=== PATIENT | female | born 1945 | race Caucasian/White ===

== ENCOUNTER 2018-12-08 20:39 | Emergency (ER) | payer MEDICARE, OTHER, SELFPAY ==
[2018-12-08 20:40] VITALS: BP 115/74; PULSE 69; RESP 17; TEMP 35.7; O2SAT 96; BMI 21.5
--- NOTE | 2018-12-08 21:55 | ED.RN ---
IM GOING HOME, I WILL SEE MY TOMORROW.
== END 2018-12-08 21:55 ==
LOC: ED 22:07
PROVIDERS: Emergency Provider Emergency Medicine; Family Provider Student in an Organized Health Care Education/Training Program; PCP Student in an Organized Health Care Education/Training Program
DX: Z91.81 History of falling (principal)

== ENCOUNTER → 2022-05-01 | Outpatient (CLI) | payer MEDICARE, OTHER, SELFPAY ==
[2022-05-01 13:46] VITALS: PULSE 101; PULSE 102; PULSE 67; PULSE 70; PULSE 91; PULSE 95; O2SAT 89; O2SAT 90; O2SAT 92; O2SAT 93; O2SAT 94
--- NOTE | 2022-05-01 13:48 | CPS ---
Patient does not wear any oxygen at home. She does have a pulse oximeter at home and states that she checks her oxygen 3 times a day while she is sitting. Patient walked a steady pace the entire 6 minutes of testing. Discussed with patient the importance of SpO2 being 89-90% or greater, and to monitor SpO2 during or directly after ambulation and activity instead of while resting. Patient verbalized understanding and was attentive during discussion.
--- NOTE | 2022-05-01 14:54 | PCM.PSN.6M ---
PSN 6 Minute Walk Test 6 Minute Walk Test 6 Minute Walk Test: 6 Minute Walk Test PSN:6-Minute Walk Test Start: 05/01/22 13:46 Freq: Status: Active Protocol: RESP.6MINW Document 05/01/22 13:46 LENNIERAMU (Rec: 05/01/22 13:53 RANDY [id number]) 6 Minute Walk Test Date Performed 05/01/22 Time Performed 13:30 Height 5 ft 3 in Weight: 50.802 kg Weight in Pounds 112.[address]: Jean Sullivan Assistive device used: None Pre-test Oxygen Delivery Method Room Air Pulse Ox (%) 94 Pulse Rate (60-100 beats/min) 67 Dyspnea Hue Scale (0-10) 0 Exertion Hue Scale (6-20) 6 1st minute Oxygen Delivery Method Room Air Pulse Ox (%) 94 Pulse Rate (60-100 beats/min) 91 2nd minute Oxygen Delivery Method Room Air Pulse Ox (%) 93 Pulse Rate (60-100 beats/min) 95 3rd minute Oxygen Delivery Method Room Air Pulse Ox (%) 92 Pulse Rate (60-100 beats/min) 101 H 4th minute Oxygen Delivery Method Room Air Pulse Ox (%) 90 Pulse Rate (60-100 beats/min) 101 H 5th minute Oxygen Delivery Method Room Air Pulse Ox (%) 89 Pulse Rate (60-100 beats/min) 102 H 6th minute Oxygen Delivery Method Room Air Pulse Ox (%) 89 Pulse Rate (60-100 beats/min) 102 H Dyspnea Hue Scale (0-10) 1 Exertion Hue Scale (6-20) 12 Post-test Oxygen Delivery Method Room Air Pulse Ox (%) 94 Pulse Rate (60-100 beats/min) 70 Full Laps Walked 18 Partial Lap, Number of Tiles Walked 50 Total Distance Walked (ft) 1112 05/01/22 13:48 Cardiopulmonary Services by Mallory Soto Patient does not wear any oxygen at home. She does have a pulse oximeter at home and states that she checks her oxygen 3 times a day while she is sitting. Patient walked a steady pace the entire 6 minutes of testing. Discussed with patient the importance of SpO2 being 89-90% or greater, and to monitor SpO2 during or directly after ambulation and activity instead of while resting. Patient verbalized understanding and was attentive during discussion. Initialized on 05/01/22 13:48 - END OF NOTE Interpretation Interpretation: The patient was able to ambulate 1112 feet over the course of 6 minutes on room air with no assistive devices or breaks. The patient did experience significant desaturation from a baseline of 94% to as low as 89%. There was an element of reflexive tachycardia with a peak heart rate of 102 bpm. These findings are consistent with a respiratory limitation exercise tolerance. Recommendations Recommendations: No supplemental oxygen is indicated at this time. However, patient will need to be followed closely given level of desaturation.
== END | disposition home or self-care (01) ==
LOC: PSN 13:24
PROVIDERS: PCP Family Medicine; Referring Provider Internal Medicine Critical Care Medicine; Visit Provider Internal Medicine Critical Care Medicine
DX: J44.9 Chronic obstructive pulmonary disease, unspecified (principal)
CPT/HCPCS: 94618

== ENCOUNTER 2023-02-24 13:20 | Inpatient (IN) | payer MEDICARE, OTHER, SELFPAY ==
[2023-02-24] VITALS (9 sets, daily range): BP systolic 107–140; BP diastolic 53–104; PULSE 80–104; RESP 16–20; TEMP 36.6–38.2; O2SAT 94–97; BMI 29.0; BMI 21.3
--- NOTE | 2023-02-24 13:45 | EKG12_ITS ---
Test Reason : SOB Blood Pressure : / mmHG Vent. Rate : 093 BPM Atrial Rate : 093 BPM P-R Int : 132 ms QRS Dur : 082 ms QT Int : 336 ms P-R-T Axes : 069 055 027 degrees QTc Int : 417 ms Normal sinus rhythm Nonspecific ST and T wave abnormality Abnormal ECG Confirmed by PAYTON VAZQUEZ, KAITLIN ([id number]), graphics editor HAKEEM HORTON ([id number]) on 02/28/2023 11:32:41 AM Referred By: Confirmed By:KAITLIN CAIN MD
--- NOTE | 2023-02-24 13:45 | RAD_ITS ---
HISTORY: chest wall pain. TECHNIQUE: XR Chest 2 Views. COMPARISON: None. FINDINGS: CARDIOMEDIASTINAL BORDERS: Cardiac silhouette within normal limits in size. Mediastinal contour unremarkable calcification of the aortic knob. LUNGS: Patchy opacity in the left midlung. PLEURA: Mild left pleural effusion. OSSEOUS STRUCTURES: Surgical anchor of the left humeral head. RAD/Chest PA and Lateral IMPRESSION: Mild left pleural effusion with patchy opacity in the left midlung, concerning for pneumonia. Recommend follow-up to resolution. Electronically Signed: Amarilys Pierce MD at 14:37 EDT ,
--- NOTE | 2023-02-24 13:46 | CT_ITS ---
HISTORY: confusion. TECHNIQUE: Multiple axial images were obtained of the head without intravenous contrast. A radiation dose optimization technique was used for this scan. 235 images. COMPARISON: None. FINDINGS: BRAIN PARENCHYMA: Multiple foci and zones of low attenuation in the bilateral cerebral white matter compatible with chronic small vessel ischemic gliosis. No acute intra-axial hemorrhage identified. CSF SPACES: Generalized volume loss. No midline shift or other significant mass effect. No acute extra-axial hemorrhage seen. OTHER: Intact calvarium. No significant air fluid levels in the paranasal sinuses or mastoid air cells. Bilateral lens resections. CT/Brain/Head without Contrast IMPRESSION: No acute intracranial process identified. Chronic involutional and white matter changes. Electronically Signed: Amarilys Pierce MD at 14:30 EDT ,
--- NOTE | 2023-02-24 13:49 | EX.ED.DYSGE1 ---
HPI <DAVID Colindres - Last Filed: 02/24/23 18:01> History of Present Illness Chief Complaint: Chest Other Narrative Narrative: Patient presenting today with her daughter due to concerns that she has a left-sided rib fracture, daughter also reports that she has been acting a little confused on and off since Saturday. Daughter reports that they were at her PCPs office on and the provider was looking at her left arm and had her left arm pressed against her chest and has had pain to her left lower chest wall ever since. Daughter reports that she has been acting off since Saturday, she was using her inhaler upside down which she has never done before and has just been acting more confused. They tested her for COVID and she was negative. She denies any fevers, chills, abdominal pain, nausea, vomiting, diarrhea, urinary symptoms, chest pain, and shortness of breath. She denies any history of blood clots, recent surgery/procedures, recent immobilization. PMH includes COPD, hyperlipidemia, depression, and hypertension. PFSH <DAVID Colindres - Last Filed: 02/24/23 18:01> PFSH Medical History Acute bronchitis Anxiety Asthma-COPD overlap syndrome Chronic cough Depression Diabetes Elevated blood pressure reading Essential hypertension History of left heart catheterization (LHC) (~02/02/04) Hypertension Intermittent cerebral ischemia Long-term memory loss Menopause Mixed hyperlipidemia Nonrheumatic aortic (valve) insufficiency Osteopenia Right wrist fracture Stage 2 moderate COPD by GOLD classification TIA (transient ischemic attack) Tobacco use Type 2 diabetes mellitus Wheezing Home Medications albuterol sulfate 90 mcg/actuation aerosol inhaler 2 puff inhalation Q6H PRN SOB 02/01/22 [History Last Taken Unknown] atorvastatin 20 mg tablet 20 mg PO DAILY 02/01/22 [History Last Taken Unknown] clopidogrel 75 mg tablet (Plavix) 75 mg PO DAILY 02/01/22 [History Last Taken Unknown] losartan 25 mg tablet 25 mg PO DAILY 02/01/22 [History Last Taken Unknown] metformin 500 mg tablet 500 mg PO DAILY 02/01/22 [History Last Taken Unknown] sertraline 100 mg tablet 100 mg PO DAILY 02/01/22 [History Last Taken Unknown] Allergy/AdvReac Type Severity Reaction Status Date / Time umeclidinium Allergy Unknown unknown Verified 02/24/23 13:26 [From Incruse Ellipta] oxycodone HCl [From Percocet] AdvReac Rash Verified 02/24/23 13:26 Family History Father CAD (coronary artery disease) History of coronary artery bypass surgery Diabetes Mother Diabetes Surgical History History of abdominal hysterectomy History of appendectomy History of History of rotator cuff surgery Social History Smoking Status: Current every day smoker tobacco type: cigarettes Tobacco: How many years used: 47 alcohol intake: never details: Rare substance use type: does not use caffeine: Yes Type: coffee Number of servings: 6 ROS <DAVID Colindres - Last Filed: 02/24/23 18:01> ROS ED Constitutional Constitutional ED: Denies chills or fever(s) Eyes Eyes: Denies change in vision Cardiovascular Cardiovascular: Denies chest pain or palpitations Respiratory/Chest Respiratory/Chest: Denies cough, dyspnea or dyspnea on exertion Gastrointestinal Gastrointestinal: Denies abdominal pain, constipation, diarrhea, melena, nausea or vomiting Genitourinary Genitourinary ED: Denies dysuria, hematuria or urinary urgency Musculoskeletal Musculoskeletal: Denies arthralgias or myalgias Integumentary Denies Abrasions or rash Neurologic Neurologic: Reports confusion; Denies paresthesias or weakness EXAM <DAVID Colindres - Last Filed: 02/24/23 18:01> Physical Exam Const Vital Signs: 02/24/23 13:21 02/24/23 14:04 02/24/23 14:09 Temperature 98 F 99.9 F H Temperature Source Temporal Oral Pulse Rate 104 H 92 Respiratory Rate 18 16 Respiratory Effort Respiratory Pattern Normal Blood Pressure 135/73 H Blood Pressure Mean 93 Pulse Ox 95 Oxygen Delivery Method Room Air Oxygen Flow Rate (L/min) 02/24/23 15:45 02/24/23 15:48 02/24/23 16:52 Temperature Temperature Source Pulse Rate 98 89 Respiratory Rate 20 H 20 H Respiratory Effort Short of Breath Respiratory Pattern Normal Blood Pressure 136/64 H 138/104 H Blood Pressure Mean 88 115 Pulse Ox 94 96 Oxygen Delivery Method Nasal Cannula Nasal Cannula Oxygen Flow Rate (L/min) 2 2 Positive well nourished, well developed and no apparent distress General Appearance ED: well developed HEENT Reports normocephalic and head/scalp atraumatic Mouth ED: Yes moist mucous membranes normal Eyes PERRL and EOMs intact bilaterally Neck full ROM and supple Chest Wall inspection of chest normal Chest Narrative: Minimal tenderness to palpation to the left anterior chest wall below the breast, no crepitus or bruising Resp normal respiratory effort Resp Narrative: Expiratory wheezes to all lung ambrocio bilaterally. Cardio regular rate and regular rhythm GI soft to palpation, non-tender, non-distended and no masses Back/Spine normal ROM and normal to inspection Extremity normal to inspection and full ROM Neuro oriented x3, CN's II-XII intact bilaterally, moves all extremities, no focal motor deficits and no sensory deficits noted Sensorium / Orientation: awake and alert Psych mental status grossly normal and thought process normal Skin no rashes or lesions noted and no wounds <Dr. Nuzhat Tee, DO - Last Filed: 02/24/23 15:44> Physical Exam Const Vital Signs: 02/24/23 13:21 02/24/23 14:04 02/24/23 14:09 Temperature 98 F 99.9 F H Temperature Source Temporal Oral Pulse Rate 104 H 92 Respiratory Rate 18 16 Respiratory Effort Respiratory Pattern Normal Blood Pressure 135/73 H Blood Pressure Mean 93 Pulse Ox 95 Oxygen Delivery Method Room Air Oxygen Flow Rate (L/min) 02/24/23 15:45 02/24/23 15:48 02/24/23 16:52 Temperature Temperature Source Pulse Rate 98 89 Respiratory Rate 20 H 20 H Respiratory Effort Short of Breath Respiratory Pattern Normal Blood Pressure 136/64 H 138/104 H Blood Pressure Mean 88 115 Pulse Ox 94 96 Oxygen Delivery Method Nasal Cannula Nasal Cannula Oxygen Flow Rate (L/min) 2 2 <Dr. Mario Froeman, DO - Last Filed: 02/24/23 17:39> Physical Exam Const Vital Signs: 02/24/23 13:21 02/24/23 14:04 02/24/23 14:09 Temperature 98 F 99.9 F H Temperature Source Temporal Oral Pulse Rate 104 H 92 Respiratory Rate 18 16 Respiratory Effort Respiratory Pattern Normal Blood Pressure 135/73 H Blood Pressure Mean 93 Pulse Ox 95 Oxygen Delivery Method Room Air Oxygen Flow Rate (L/min) 02/24/23 15:45 02/24/23 15:48 02/24/23 16:52 Temperature Temperature Source Pulse Rate 98 89 Respiratory Rate 20 H 20 H Respiratory Effort Short of Breath Respiratory Pattern Normal Blood Pressure 136/64 H 138/104 H Blood Pressure Mean 88 115 Pulse Ox 94 96 Oxygen Delivery Method Nasal Cannula Nasal Cannula Oxygen Flow Rate (L/min) 2 2 [facility] <DAVID Colindres - Last Filed: 02/24/23 18:01> [facility] Narrative Medical decision making narrative: Patient presenting today due to concerns for pain to her left lower chest wall thinking that she could have maybe broke her rib after seeing a provider on Saturday who was trying to remove a palpable from her left arm and was pushing her arm against her chest and it has been painful ever since. Pain is not consistent with cardiac chest pain, pain is reproducible. Daughter is concerned that she has been acting more confused over the past few days. Patient is well-appearing and in no acute distress. Labs will be obtained to rule out leukocytosis, anemia, electrolyte abnormality, CATALINA, UTI, and ACS. CT of the head will be obtained to rule out intracranial abnormality, chest x-ray will be obtained to rule out infiltrate and rib fracture. She will be given a albuterol breathing treatment due to having some expiratory wheezing on auscultation. Patient did develop a fever, she was given Tylenol. She does have an elevated WBC, D-dimer is elevated, she is hyponatremic, chest x-ray shows pneumonia. CTA obtained and patient does not have a PE. She was given IV fluids, she was started on azithromycin and Rocephin, she was ambulated and dropped to 86% on room air. At this point, I will speak with the hospitalist for admission. I have personally performed a face to face assessment of the patient and have reviewed the MARIELLA Note. I performed a substantive portion of the visit including all aspects of the following. My bone findings include: History is [patient presents to the emergency department with complaint of left chest pain and increased confusion. Daughter feels like patient's been more confused and disoriented over the last several days and example she gives as not being able to use her inhaler properly. Patient also seems more off balance today per daughter and had a couple episodes where she thought she might fall. She was seen by primary care physician's office 3 days ago and the primary care physician was attempting to remove a pebble from her left forearm while at same time pushing down on her chest and since that time she has been complaining of pain in her left chest. Patient denies any recent illness. She denies urinary symptoms. She denies any falls or head injuries.] Exam is [HEENT-PERRLA, EOMI. Cranial nerves II through XII grossly intact. TMs clear. Mucous membranes moist. No adenopathy. Cardiovascular-regular rate and rhythm without murmur or ectopy Lungs-clear to auscultation, chest wall stable without crepitus or subcu emphysema Abdomen-normoactive bowel sounds, soft, nontender, no rebound or rigidity, no peritoneal signs. Extremities-intact ?4, normal range of motion, normal pulses, atraumatic] Medical Decison Making [patient presents with left-sided chest discomfort as well as some increased confusion and low-grade fever here. On lung exam she has wheezing throughout. Concern for infectious etiology. EKG obtained arrival showed a sinus rhythm with a rate of [address] changes. CBC with differential showed an elevated white count of 15.4 with hemoglobin 12 and platelet count of 228. Chemistries unremarkable. Troponin was normal.] 1 view chest x-ray showed increased markings in the left lower lobe I suspect this consistent with pneumonia. Patient started on Rocephin and Zithromax IV. COVID and flu testing were negative. CT scan of the brain without contrast showed nothing acute. Blood cultures ordered. Lactate pending. Patient had an elevated D-dimer therefore CT of the chest was obtained to rule out PE given the patient's complaint of chest pain and tachycardia. Official report from radiology pending. Care of patient turned over to evening physician awaiting results and final disposition which I suspect likely require admission. Patient did receive DuoNeb aerosol in the emergency department. Patient was started on Solu-Medrol. Other additions or changes: [None] Lab Data Labs: Laboratory Results - last 24 hr 02/24/23 02/24/23 02/24/23 14:09 14:36 15:16 WBC 15.4 H RBC 3.95 L Hgb 12.1 Hct 36.0 L MCV 91.1 MCH 30.6 MCHC 33.6 RDW Std Deviation 42.8 RDW Coeff of [place] 12.9 Plt Count 228 MPV 8.9 Immature Gran % (Auto) 0.600 Neut % (Auto) 84.9 H Lymph % (Auto) 6.9 L [place] % (Auto) 7.2 Eos % (Auto) 0.2 Baso % (Auto) 0.2 Absolute Neuts (auto) 13.1 H Absolute Lymphs (auto) 1.07 Nucleated RBC % 0 D-Dimer Quant (PE/DVT) 2.27 H* Sodium Cancelled 131 L Potassium Cancelled 3.9 Chloride Cancelled 97 L Carbon Dioxide Cancelled 27.0 Anion Gap Cancelled 7 BUN Cancelled 18 Creatinine Cancelled 0.88 Estim Creat Clear Calc Cancelled 44.99 Est GFR (MDRD) Af Amer Cancelled 80 Est GFR (MDRD) Non-Af Cancelled 66 BUN/Creatinine Ratio Cancelled 20.3 H Glucose Cancelled 108 H Lactic Acid 1.9 Calcium Cancelled 8.9 Troponin I High Sens Cancelled 6 Urine Color Urine Clarity Urine pH Ur Specific [place] Urine Protein Urine Glucose (UA) Urine Ketones Urine Occult Blood Urine Nitrite Urine Bilirubin Urine Urobilinogen Ur Leukocyte Esterase Urine RBC Urine WBC Ur Squamous Epith Cells Urine Bacteria Urine Mucus 02/24/23 16:15 WBC RBC Hgb Hct MCV MCH MCHC RDW Std Deviation RDW Coeff of [place] Plt Count MPV Immature Gran % (Auto) Neut % (Auto) Lymph % (Auto) [place] % (Auto) Eos % (Auto) Baso % (Auto) Absolute Neuts (auto) Absolute Lymphs (auto) Nucleated RBC % D-Dimer Quant (PE/DVT) Sodium Potassium Chloride Carbon Dioxide Anion Gap BUN Creatinine Estim Creat Clear Calc Est GFR (MDRD) Af Amer Est GFR (MDRD) Non-Af BUN/Creatinine Ratio Glucose Lactic Acid Calcium Troponin I High Sens Urine Color Yellow Urine Clarity Sl. Cloudy Urine pH 7.0 Ur Specific [place] 1.005 Urine Protein 15 H Urine Glucose (UA) Normal Urine Ketones Negative Urine Occult Blood 50 H Urine Nitrite Negative Urine Bilirubin Negative Urine Urobilinogen Normal Ur Leukocyte Esterase 25 H Urine RBC 0-5 SEEN Urine WBC 0-5 SEEN Ur Squamous Epith Cells 0-5 SEEN Urine Bacteria 0 SEEN Urine Mucus 0 SEEN Radiography X-Ray: Read by ED Physician and Read by Radiologist Diagnostic Testing: Clinical Impression(s) from Imaging Studies Chest X-Ray 02/24/23 13:45 IMPRESSION: Mild left pleural effusion with patchy opacity in the left midlung, concerning for pneumonia. Recommend follow-up to resolution. Electronically Signed: Amarilys Pierce MD at 14:37 EDT , Brain CT 02/24/23 13:46 IMPRESSION: No acute intracranial process identified. Chronic involutional and white matter changes. Electronically Signed: Amarilys Pierce MD at 14:30 EDT , Chest CTA 02/24/23 14:54 IMPRESSION: 1. No demonstrated pulmonary embolism or arterial dissection. 2. There is a lingular and left upper lobe infiltrate suggesting a pneumonia. 3. There is a small left pleural effusions. Electronically Signed: Eulalio Huynh MD at 16:15 EDT , <Dr. Nuzhat Tee, DO - Last Filed: 02/24/23 15:44> [facility] MDM Narrative Medical decision making narrative: Patient presenting today due to concerns for pain to her left lower chest wall thinking that she could have maybe broke her rib after seeing a provider on Saturday who was trying to remove a palpable from her left arm and was pushing her arm against her chest and it has been painful ever since. Pain is not consistent with cardiac chest pain, pain is reproducible. Daughter is concerned that she has been acting more confused over the past few days. Patient is well-appearing and in no acute distress. Labs will be obtained to rule out leukocytosis, anemia, electrolyte abnormality, CATALINA, UTI, and ACS. CT of the head will be obtained to rule out intracranial abnormality, chest x-ray will be obtained to rule out infiltrate and rib fracture. She will be given a albuterol breathing treatment due to having some expiratory wheezing on auscultation. I have personally performed a face to face assessment of the patient and have reviewed the MARIELLA Note. I performed a substantive portion of the visit including all aspects of the following. My bone findings include: History is [patient presents to the emergency department with complaint of left chest pain and increased confusion. Daughter feels like patient's been more confused and disoriented over the last several days and example she gives as not being able to use her inhaler properly. Patient also seems more off balance today per daughter and had a couple episodes where she thought she might fall. She was seen by primary care physician's office 3 days ago and the primary care physician was attempting to remove a pebble from her left forearm while at same time pushing down on her chest and since that time she has been complaining of pain in her left chest. Patient denies any recent illness. She denies urinary symptoms. She denies any falls or head injuries.] Exam is [HEENT-PERRLA, EOMI. Cranial nerves II through XII grossly intact. TMs clear. Mucous membranes moist. No adenopathy. Cardiovascular-regular rate and rhythm without murmur or ectopy Lungs-clear to auscultation, chest wall stable without crepitus or subcu emphysema Abdomen-normoactive bowel sounds, soft, nontender, no rebound or rigidity, no peritoneal signs. Extremities-intact ?4, normal range of motion, normal pulses, atraumatic] Medical Decison Making [patient presents with left-sided chest discomfort as well as some increased confusion and low-grade fever here. On lung exam she has wheezing throughout. Concern for infectious etiology. EKG obtained arrival showed a sinus rhythm with a rate of [address] changes. CBC with differential showed an elevated white count of 15.4 with hemoglobin 12 and platelet count of 228. Chemistries unremarkable. Troponin was normal.] 1 view chest x-ray showed increased markings in the left lower lobe I suspect this consistent with pneumonia. Patient started on Rocephin and Zithromax IV. COVID and flu testing were negative. CT scan of the brain without contrast showed nothing acute. Blood cultures ordered. Lactate pending. Patient had an elevated D-dimer therefore CT of the chest was obtained to rule out PE given the patient's complaint of chest pain and tachycardia. Official report from radiology pending. Care of patient turned over to evening physician awaiting results and final disposition which I suspect likely require admission. Patient did receive DuoNeb aerosol in the emergency department. Patient was started on Solu-Medrol. Other additions or changes: [None] Lab Data Attestation: I reviewed the patient's lab results. Labs: Laboratory Results - last 24 hr 02/24/23 02/24/23 02/24/23 14:09 14:36 15:16 WBC 15.4 H RBC 3.95 L Hgb 12.1 Hct 36.0 L MCV 91.1 MCH 30.6 MCHC 33.6 RDW Std Deviation 42.8 RDW Coeff of [place] 12.9 Plt Count 228 MPV 8.9 Immature Gran % (Auto) 0.600 Neut % (Auto) 84.9 H Lymph % (Auto) 6.9 L [place] % (Auto) 7.2 Eos % (Auto) 0.2 Baso % (Auto) 0.2 Absolute Neuts (auto) 13.1 H Absolute Lymphs (auto) 1.07 Nucleated RBC % 0 D-Dimer Quant (PE/DVT) 2.27 H* Sodium Cancelled 131 L Potassium Cancelled 3.9 Chloride Cancelled 97 L Carbon Dioxide Cancelled 27.0 Anion Gap Cancelled 7 BUN Cancelled 18 Creatinine Cancelled 0.88 Estim Creat Clear Calc Cancelled 44.99 Est GFR (MDRD) Af Amer Cancelled 80 Est GFR (MDRD) Non-Af Cancelled 66 BUN/Creatinine Ratio Cancelled 20.3 H Glucose Cancelled 108 H Lactic Acid 1.9 Calcium Cancelled 8.9 Troponin I High Sens Cancelled 6 Urine Color Urine Clarity Urine pH Ur Specific [place] Urine Protein Urine Glucose (UA) Urine Ketones Urine Occult Blood Urine Nitrite Urine Bilirubin Urine Urobilinogen Ur Leukocyte Esterase Urine RBC Urine WBC Ur Squamous Epith Cells Urine Bacteria Urine Mucus 02/24/23 16:15 WBC RBC Hgb Hct MCV MCH MCHC RDW Std Deviation RDW Coeff of [place] Plt Count MPV Immature Gran % (Auto) Neut % (Auto) Lymph % (Auto) [place] % (Auto) Eos % (Auto) Baso % (Auto) Absolute Neuts (auto) Absolute Lymphs (auto) Nucleated RBC % D-Dimer Quant (PE/DVT) Sodium Potassium Chloride Carbon Dioxide Anion Gap BUN Creatinine Estim Creat Clear Calc Est GFR (MDRD) Af Amer Est GFR (MDRD) Non-Af BUN/Creatinine Ratio Glucose Lactic Acid Calcium Troponin I High Sens Urine Color Yellow Urine Clarity Sl. Cloudy Urine pH 7.0 Ur Specific [place] 1.005 Urine Protein 15 H Urine Glucose (UA) Normal Urine Ketones Negative Urine Occult Blood 50 H Urine Nitrite Negative Urine Bilirubin Negative Urine Urobilinogen Normal Ur Leukocyte Esterase 25 H Urine RBC 0-5 SEEN Urine WBC 0-5 SEEN Ur Squamous Epith Cells 0-5 SEEN Urine Bacteria 0 SEEN Urine Mucus 0 SEEN Radiography Diagnostic Testing: Clinical Impression(s) from Imaging Studies Chest X-Ray 02/24/23 13:45 IMPRESSION: Mild left pleural effusion with patchy opacity in the left midlung, concerning for pneumonia. Recommend follow-up to resolution. Electronically Signed: Amarilys Pierce MD at 14:37 EDT , Brain CT 02/24/23 13:46 IMPRESSION: No acute intracranial process identified. Chronic involutional and white matter changes. Electronically Signed: Amarilys Pierce MD at 14:30 EDT , Chest CTA 02/24/23 14:54 IMPRESSION: 1. No demonstrated pulmonary embolism or arterial dissection. 2. There is a lingular and left upper lobe infiltrate suggesting a pneumonia. 3. There is a small left pleural effusions. Electronically Signed: Eulalio Huynh MD at 16:15 EDT , 1 view chest x-ray obtained interpreted by myself as increased interstitial markings in the left lower lobe consistent with infiltrate. Radiology in agreement. EKG Initial EKG: Attestation: I personally reviewed and interpreted this EKG as follows: Comments: Sinus rhythm with a rate of [address] changes <Dr. Mario Foreman, DO - Last Filed: 02/24/23 17:39> [facility] Narrative Medical decision making narrative: Patient presenting today due to concerns for pain to her left lower chest wall thinking that she could have maybe broke her rib after seeing a provider on Saturday who was trying to remove a palpable from her left arm and was pushing her arm against her chest and it has been painful ever since. Pain is not consistent with cardiac chest pain, pain is reproducible. Daughter is concerned that she has been acting more confused over the past few days. Patient is well-appearing and in no acute distress. Labs will be obtained to rule out leukocytosis, anemia, electrolyte abnormality, CATALINA, UTI, and ACS. CT of the head will be obtained to rule out intracranial abnormality, chest x-ray will be obtained to rule out infiltrate and rib fracture. She will be given a albuterol breathing treatment due to having some expiratory wheezing on auscultation. Patient did develop a fever, she was given Tylenol. She does have an elevated WBC, D-dimer is elevated, she is hyponatremic, chest x-ray shows pneumonia. CTA obtained and patient does not have a PE. She was given IV fluids, she was started on azithromycin and Rocephin, she was ambulated and dropped to 86% on room air. At this point, I will speak with the hospitalist for admission. I have personally performed a face to face assessment of the patient and have reviewed the MARIELLA Note. I performed a substantive portion of the visit including all aspects of the following. My bone findings include: History is [patient presents to the emergency department with complaint of left chest pain and increased confusion. Daughter feels like patient's been more confused and disoriented over the last several days and example she gives as not being able to use her inhaler properly. Patient also seems more off balance today per daughter and had a couple episodes where she thought she might fall. She was seen by primary care physician's office 3 days ago and the primary care physician was attempting to remove a pebble from her left forearm while at same time pushing down on her chest and since that time she has been complaining of pain in her left chest. Patient denies any recent illness. She denies urinary symptoms. She denies any falls or head injuries.] Exam is [HEENT-PERRLA, EOMI. Cranial nerves II through XII grossly intact. TMs clear. Mucous membranes moist. No adenopathy. Cardiovascular-regular rate and rhythm without murmur or ectopy Lungs-clear to auscultation, chest wall stable without crepitus or subcu emphysema Abdomen-normoactive bowel sounds, soft, nontender, no rebound or rigidity, no peritoneal signs. Extremities-intact ?4, normal range of motion, normal pulses, atraumatic] Medical Decison Making [patient presents with left-sided chest discomfort as well as some increased confusion and low-grade fever here. On lung exam she has wheezing throughout. Concern for infectious etiology. EKG obtained arrival showed a sinus rhythm with a rate of [address] changes. CBC with differential showed an elevated white count of 15.4 with hemoglobin 12 and platelet count of 228. Chemistries unremarkable. Troponin was normal.] 1 view chest x-ray showed increased markings in the left lower lobe I suspect this consistent with pneumonia. Patient started on Rocephin and Zithromax IV. COVID and flu testing were negative. CT scan of the brain without contrast showed nothing acute. Blood cultures ordered. Lactate pending. Patient had an elevated D-dimer therefore CT of the chest was obtained to rule out PE given the patient's complaint of chest pain and tachycardia. Official report from radiology pending. Care of patient turned over to evening physician awaiting results and final disposition which I suspect likely require admission. Patient did receive DuoNeb aerosol in the emergency department. Patient was started on Solu-Medrol. Other additions or changes: [None] CTA of the chest was reviewed and discussed with physician construction assistant. Case was reviewed plan was solidified for patient admission and hospitalist was contacted. Antibiotics have been given. Patient has remained hemodynamically stable. Lab Data Labs: Laboratory Results - last 24 hr 02/24/23 02/24/23 02/24/23 14:09 14:36 15:16 WBC 15.4 H RBC 3.95 L Hgb 12.1 Hct 36.0 L MCV 91.1 MCH 30.6 MCHC 33.6 RDW Std Deviation 42.8 RDW Coeff of Ana Maria 12.9 Plt Count 228 MPV 8.9 Immature Gran % (Auto) 0.600 Neut % (Auto) 84.9 H Lymph % (Auto) 6.9 L [place] % (Auto) 7.2 Eos % (Auto) 0.2 Baso % (Auto) 0.2 Absolute Neuts (auto) 13.1 H Absolute Lymphs (auto) 1.07 Nucleated RBC % 0 D-Dimer Quant (PE/DVT) 2.27 H* Sodium Cancelled 131 L Potassium Cancelled 3.9 Chloride Cancelled 97 L Carbon Dioxide Cancelled 27.0 Anion Gap Cancelled 7 BUN Cancelled 18 Creatinine Cancelled 0.88 Estim Creat Clear Calc Cancelled 44.99 Est GFR (MDRD) Af Amer Cancelled 80 Est GFR (MDRD) Non-Af Cancelled 66 BUN/Creatinine Ratio Cancelled 20.3 H Glucose Cancelled 108 H Lactic Acid 1.9 Calcium Cancelled 8.9 Troponin I High Sens Cancelled 6 Urine Color Urine Clarity Urine pH Ur Specific [place] Urine Protein Urine Glucose (UA) Urine Ketones Urine Occult Blood Urine Nitrite Urine Bilirubin Urine Urobilinogen Ur Leukocyte Esterase Urine RBC Urine WBC Ur Squamous Epith Cells Urine Bacteria Urine Mucus 02/24/23 16:15 WBC RBC Hgb Hct MCV MCH MCHC RDW Std Deviation RDW Coeff of Ana Maria Plt Count MPV Immature Gran % (Auto) Neut % (Auto) Lymph % (Auto) [place] % (Auto) Eos % (Auto) Baso % (Auto) Absolute Neuts (auto) Absolute Lymphs (auto) Nucleated RBC % D-Dimer Quant (PE/DVT) Sodium Potassium Chloride Carbon Dioxide Anion Gap BUN Creatinine Estim Creat Clear Calc Est GFR (MDRD) Af Amer Est GFR (MDRD) Non-Af BUN/Creatinine Ratio Glucose Lactic Acid Calcium Troponin I High Sens Urine Color Yellow Urine Clarity Sl. Cloudy Urine pH 7.0 Ur Specific [place] 1.005 Urine Protein 15 H Urine Glucose (UA) Normal Urine Ketones Negative Urine Occult Blood 50 H Urine Nitrite Negative Urine Bilirubin Negative Urine Urobilinogen Normal Ur Leukocyte Esterase 25 H Urine RBC 0-5 SEEN Urine WBC 0-5 SEEN Ur Squamous Epith Cells 0-5 SEEN Urine Bacteria 0 SEEN Urine Mucus 0 SEEN Radiography Diagnostic Testing: Clinical Impression(s) from Imaging Studies Chest X-Ray 02/24/23 13:45 IMPRESSION: Mild left pleural effusion with patchy opacity in the left midlung, concerning for pneumonia. Recommend follow-up to resolution. Electronically Signed: Amarilys Pierce MD at 14:37 EDT , Brain CT 02/24/23 13:46 IMPRESSION: No acute intracranial process identified. Chronic involutional and white matter changes. Electronically Signed: Amarilys Pierce MD at 14:30 EDT , Chest CTA 02/24/23 14:54 IMPRESSION: 1. No demonstrated pulmonary embolism or arterial dissection. 2. There is a lingular and left upper lobe infiltrate suggesting a pneumonia. 3. There is a small left pleural effusions. Electronically Signed: Eulalio Huynh MD at 16:15 EDT , Discharge Plan Dx/Rx/DC Orders Clinical Impression: Confusion, Weakness, Chest pain, Pneumonia, Pleural effusion on left, Acute hyponatremia Disposition Disposition: Acute Care Hospital [facility]
[2023-02-24] MEDS: Albuterol 2.5 MG/3 ML VIAL.NEB. INHALATION (13:54)
[2023-02-24 14:24] LABS: Absolute Lymphocyte Count 1.07 X10^3/uL (0.83-4.51); Absolute Neutrophil Count 13.1 X10^3/uL (2.0-7.7); Basophil# 0.03 X10^3/uL; Basophil% 0.2 % (0-1); Eosinophil# 0.03 X10^3/uL; Eosinophils% 0.2 % (0-5); Hemoglobin 12.1 g/dL (12.0-15.0); Lymphocyte # 1.07 X10^3/ul (0.83-4.51); Lymphocyte % 6.9 % (19-41); Mean Corp Hgb Conc 33.6 g/dL (32-36); Mean Corpuscular Hgb 30.6 pg (27.0-32.0); Mean Corpuscular Volume 91.1 fL (81-99); Mean Platelet Vol. 8.9 fl (6.2-12.0); Monocyte# 1.11 X10^3/uL; Monocyte% 7.2 % (0-10); NRBC Flagged by Analyzer 0 % (0-5); Neutrophil # 13.07 X10^3/uL (2.7-7.7); Neutrophil % 84.9 % (47-70); Platelet Count 228 K/mm3 (150-450); RBC Distribution Width CV 12.9 % (11.6-14.6); RBC Distribution Width SD 42.8 fl (35.1-43.9); Red Blood Count 3.95 M/mm3 (4.2-5.4); White Blood Count 15.4 K/mm3 (4.4-11.0)
[2023-02-24 14:52] LABS: D-Dimer Quantitative (DVT/PE) 2.27 FEU/ug/m (0.27-0.49)
--- NOTE | 2023-02-24 14:54 | CT_ITS ---
EXAM: CT ANGIOGRAPHY CHEST WITHOUT AND WITH INTRAVENOUS CONTRAST CLINICAL INDICATION: Elevated D-dimer TECHNIQUE: Helically acquired angiography images were obtained of the chest without and with intravenous contrast. This CT exam was performed using one or more of the following dose reduction techniques: automated exposure control, adjustment of the mA and/or kV according to patient size, and/or use of iterative reconstruction technique. MIP reconstructed images were created and reviewed. CONTRAST: IV 100mL Isovue-370 RADIATION DOSE: CTDIvol = 5.40 mGy, DLP = 174.53 mGy-cm COMPARISON: No relevant prior studies available. FINDINGS: PULMONARY ARTERIES: Unremarkable. No demonstrated pulmonary embolism or arterial dissection. AORTA: There is atherosclerotic calcification of the aortic arch with tortuosity and elongation of the aortic arch and descending thoracic aorta. Normal in caliber. No evidence of dissection. GREAT VESSELS OF AORTIC ARCH: See above. LUNGS AND PLEURAL SPACES: There is a lingular and left upper lobe infiltrate suggesting a pneumonia. There is a small left pleural effusions. No mass. HEART: There are calcifications of the coronary arteries. Heart size is normal. No pericardial effusion. MEDIASTINUM: Unremarkable. No mediastinal or hilar adenopathy. Esophagus is unremarkable. No hiatal hernia. THYROID: Unremarkable. No thyroid lesions. BONES/JOINTS: There are degenerative changes of the shoulders. There are multi-level degenerative changes of the thoracic spine. No suspicious lytic or blastic abnormality. OTHER FINDINGS: Post-processing of the angiographic images was performed, with axial imaging and 3D reconstruction. MIPS images were obtained. CT/CTA Chest W/WO Contrast IMPRESSION: 1. No demonstrated pulmonary embolism or arterial dissection. 2. There is a lingular and left upper lobe infiltrate suggesting a pneumonia. 3. There is a small left pleural effusions. Electronically Signed: Eulalio Huynh MD at 16:15 EDT ,
[2023-02-24 15:11] LABS: Anion Gap 7 (5-15); BUN 18 mg/dL (7-18); BUN/Creat Ratio 20.3 RATIO (10-20); Calcium,Total 8.9 mg/dL (8.5-10.1); Chloride 97 mmol/L (98-107); Creatinine, Serum 0.88 mg/dL (0.55-1.02); EST Glomerular Filtration Rate 66 mL/min (>60); Est Glom Filt Rate - Afr Amer 80 mL/min (>60); Estimated Creatinine Clearance 44.99 ml/min; Glucose 108 mg/dL (74-106); Potassium 3.9 mmol/L (3.5-5.1); Sodium Level 131 mmol/L (136-145); Troponin-I HS 6 pg/mL (3.0-54.0)
[2023-02-24] MEDS: Acetaminophen 325 MG Tablet 650 MG PO (15:42)
[2023-02-24] MEDS: 0.9% Normal Saline (1000mL) 1,000 ML 999 ML IV (15:43)
[2023-02-24 15:51] LABS: Lactic Acid 1.9 mmol/L (0.4-1.9)
[2023-02-24] MEDS: Ceftriaxone 1 GM/50 ML BAG IV (16:10)
[2023-02-24 16:20] LABS: Bacteria 0 SEEN /hpf (None Seen); Mucous, Urine 0 SEEN /hpf (<or=2+)
[2023-02-24 16:21] LABS: Color, Urine Yellow (Yellow); Glucose, Dipstick Normal (Normal); Ketone-Dipstick Negative (Negative); Leukocyte Esterase-Dipstick 25 /ul (Negative); Nitrite-Dipstick Negative (Negative); Occult Blood-Urine 50 /ul (Negative); Protein-Dipstick 15 mg/dl (Negative); Specific Gravity, Urine 1.005 (1.002-1.030); Urine Bilirubin Dipstick Negative (Negative); Urine Clarity Sl. Cloudy (Clear); Urine Urobilinogen Normal (Normal)
[2023-02-24 16:35] LABS: Red Blood Cells-Urine 0-5 SEEN /hpf (0-5); Squamous Epithelial Cells - UA 0-5 SEEN /hpf (5-10); White Blood Cells 0-5 SEEN /hpf (0-5)
[2023-02-24] MEDS: Azithromycin 500 MG in Dextrose 5%-Water (250mL Bag) 250 ML 250 MG IV (16:49)
--- NOTE | 2023-02-24 17:36 | NURSING ---
MED SURG PNEUMONIA TIANS
--- NOTE | 2023-02-24 17:57 | PCM.HP.STD ---
HPI - General General Date of Admission: 02/24/23 HPI Narrative COLTON SARABIA, is a 77 F who presents to the hospital with left-sided chest pain that is tender to palpation. This has been going on since she was at her doctor's office on . They were concerned that she had a rib fracture since that time they have noticed that she has been feeling little bit more chilled and may be coughing a little bit more with more sputum production than at baseline. In the ER she was found to have a leukocytosis and a CTA was performed secondary to an elevated D-dimer that was negative for PE but did showed a left-sided pneumonia with no rib fractures. EKG and troponin were unremarkable on admission to the ED. She was hypoxic both at rest and with ambulation down to about 80 to 83% and she does not normally wear oxygen [facility] Medical History Acute bronchitis Anxiety Asthma-COPD overlap syndrome Chronic cough Depression Diabetes Elevated blood pressure reading Essential hypertension History of left heart catheterization (LHC) (~02/02/04) Hypertension Intermittent cerebral ischemia Long-term memory loss Menopause Mixed hyperlipidemia Nonrheumatic aortic (valve) insufficiency Osteopenia Right wrist fracture Stage 2 moderate COPD by GOLD classification TIA (transient ischemic attack) Tobacco use Type 2 diabetes mellitus Wheezing Home Medications albuterol sulfate 90 mcg/actuation aerosol inhaler 2 puff inhalation Q6H PRN SOB 02/01/22 [History Last Taken Unknown] atorvastatin 20 mg tablet 20 mg PO DAILY 02/01/22 [History Last Taken Unknown] clopidogrel 75 mg tablet (Plavix) 75 mg PO DAILY 02/01/22 [History Last Taken Unknown] losartan 25 mg tablet 25 mg PO DAILY 02/01/22 [History Last Taken Unknown] metformin 500 mg tablet 500 mg PO DAILY 02/01/22 [History Last Taken Unknown] sertraline 100 mg tablet 100 mg PO DAILY 02/01/22 [History Last Taken Unknown] Allergy/AdvReac Type Severity Reaction Status Date / Time umeclidinium Allergy Unknown unknown Verified 02/24/23 13:26 [From Incruse Ellipta] oxycodone HCl [From Percocet] AdvReac Rash Verified 02/24/23 13:26 Family History Father CAD (coronary artery disease) History of coronary artery bypass surgery Diabetes Mother Diabetes Surgical History History of abdominal hysterectomy History of appendectomy History of History of rotator cuff surgery Social History Smoking Status: Current every day smoker tobacco type: cigarettes Tobacco: How many years used: 47 alcohol intake: never details: Rare substance use type: does not use caffeine: Yes Type: coffee Number of servings: 6 ROS Constitutional Constitutional: Reports chills; Denies fatigue, fever(s) or malaise Eyes Eyes: Denies blurry vision ENT HEENT: Denies headache(s) or nasal discharge Cardiovascular Cardiovascular: Reports other Details: Chest wall pain ; Denies chest pain, dyspnea on exertion or syncope Respiratory/Chest Respiratory/Chest: Reports productive cough and shortness of breath at rest; Denies shortness of breath with exertion Gastrointestinal Gastrointestinal: Denies constipation, diarrhea, nausea or vomiting Genitourinary Genitourinary: Denies dysuria Neurologic Neurologic: Denies focal weakness, numbness or tremor(s) Psychiatric Psychiatric: Denies anxiety or depression Vital Signs Vital Signs Vital Signs: 02/24/23 13:21 02/24/23 14:04 02/24/23 14:09 Temperature 98 F 99.9 F H Temperature Source Temporal Oral Pulse Rate 104 H 92 Respiratory Rate 18 16 Respiratory Effort Respiratory Pattern Normal Blood Pressure 135/73 H Blood Pressure Mean 93 Pulse Ox 95 Oxygen Delivery Method Room Air Oxygen Flow Rate (L/min) 02/24/23 15:45 02/24/23 15:48 02/24/23 16:52 Temperature Temperature Source Pulse Rate 98 89 Respiratory Rate 20 H 20 H Respiratory Effort Short of Breath Respiratory Pattern Normal Blood Pressure 136/64 H 138/104 H Blood Pressure Mean 88 115 Pulse Ox 94 96 Oxygen Delivery Method Nasal Cannula Nasal Cannula Oxygen Flow Rate (L/min) 2 2 Weight Weight: 163 lb 12.8 oz Body Mass Index (BMI) 29.0 Physical Exam Narrative General: Alert, Oriented x3, Cooperative, mild to moderate respiratory distress HEENT: Atraumatic, PERRLA, EOMI, Normocephalic Oral: Moist Mucosa Neck: Supple, No JVD Lungs: Diminished, Normal air movement, No rhonchi, wheeze, No rales, tachypneic with retractions exacerbated when off oxygen Cardiovascular: Regular rate, Regular Rhythm, Normal S1, Normal S2, No murmurs Abdomen: Soft, Non Tender, Non-Distended, No Hepato-splenomegaly Extremities: No edema, Capillary Refill Less than 3 Seconds Skin: No rashes, No breakdown Musculoskeletal: No Tenderness to Palpation of Joints or Extremities Neurological: Cranial nerves II-XII grossly intact, Motor Exam 5/5 strength throughout, Sensory exam intact to light touch and pain Psych/Mental Status: Normal Affect, Appropriate Results Lab / Micro Data 02/24/23 14:09 02/24/23 14:36 Labs: Laboratory Results - last 24 hr 02/24/23 14:09: WBC 15.4 H, RBC 3.95 L, Hgb 12.1, Hct 36.0 L, MCV 91.1, MCH 30.6, MCHC 33.6, RDW Std Deviation 42.8, RDW Coeff of Ana Maria 12.9, Plt Count 228, MPV 8.9, Immature Gran % (Auto) 0.600, Neut % (Auto) 84.9 H, Lymph % (Auto) 6.9 L, [place] % (Auto) 7.2, Eos % (Auto) 0.2, Baso % (Auto) 0.2, Absolute Neuts (auto) 13.1 H, Absolute Lymphs (auto) 1.07, Nucleated RBC % 0, D-Dimer Quant (PE/DVT) 2.27 H*, Sodium Cancelled, Potassium Cancelled, Chloride Cancelled, Carbon Dioxide Cancelled, Anion Gap Cancelled, BUN Cancelled, Creatinine Cancelled, Estim Creat Clear Calc Cancelled, Est GFR (MDRD) Af Amer Cancelled, Est GFR (MDRD) Non-Af Cancelled, BUN/Creatinine Ratio Cancelled, Glucose Cancelled, Calcium Cancelled, Troponin I High Sens Cancelled 02/24/23 14:36: Sodium 131 L, Potassium 3.9, Chloride 97 L, Carbon Dioxide 27.0, Anion Gap 7, BUN 18, Creatinine 0.88, Estim Creat Clear Calc 44.99, Est GFR (MDRD) Af Amer 80, Est GFR (MDRD) Non-Af 66, BUN/Creatinine Ratio 20.3 H, Glucose 108 H, Calcium 8.9, Troponin I High Sens 6 10/15/23 15:16: Lactic Acid 1.9 02/24/23 16:15: Urine Color Yellow, Urine Clarity Sl. Cloudy, Urine pH 7.0, Ur Specific [place] 1.005, Urine Protein 15 H, Urine Glucose (UA) Normal, Urine Ketones Negative, Urine Occult Blood 50 H, Urine Nitrite Negative, Urine Bilirubin Negative, Urine Urobilinogen Normal, Ur Leukocyte Esterase 25 H, Urine RBC 0-5 SEEN, Urine WBC 0-5 SEEN, Ur Squamous Epith Cells 0-5 SEEN, Urine Bacteria 0 SEEN, Urine Mucus 0 SEEN Micro: Microbiology 02/24/23 14:23 Nasal Secretion SARS-CoV-2 & FLU Antigen (Rapid) - Final Radiology Impression Chest X-Ray 02/24/23 13:45 IMPRESSION: Mild left pleural effusion with patchy opacity in the left midlung, concerning for pneumonia. Recommend follow-up to resolution. Electronically Signed: Amarilys Pierce MD at 14:37 EDT , Brain CT 02/24/23 13:46 IMPRESSION: No acute intracranial process identified. Chronic involutional and white matter changes. Electronically Signed: Amarilys Pierce MD at 14:30 EDT , Chest CTA 02/24/23 14:54 IMPRESSION: 1. No demonstrated pulmonary embolism or arterial dissection. 2. There is a lingular and left upper lobe infiltrate suggesting a pneumonia. 3. There is a small left pleural effusions. Electronically Signed: Eulalio Huynh MD at 16:15 EDT , Assessment & Plan Assessment/Plan (1) Pneumonia: (2) Acute respiratory failure with hypoxia: PLAN: Plan 1. Acute hypoxic respiratory failure secondary to community-acquired pneumonia ? We will continue with oxygen and incentive spirometry ? She was 82% on room air at rest and with ambulation, when wearing the oxygen she has very mild respiratory distress with slight retractions but much more pronounced when off of oxygen and daughter has noticed confusion 1 hypoxic ? Continue with Rocephin and azithromycin ? Sputum culture is pending ? We will obtain a Legionella and strep antigen 2. HTN/HLD/history of TIA ? Blood pressures are stable ? Renal function is okay so can resume her losartan ? Continue with Plavix this was started because she had several years ago with TIA 3. Asthma/COPD overlap ? Stable ? Can resume her home albuterol inhalers 4. DM 2 ? We will hold her metformin placed on sliding scale insulin ? Accu-Cheks ACHS ? We will monitor and make adjustments as necessary 5. Anxiety/depression ? Stable ? Continue with her home medications D PT: Santiago Charges/Coding Visit Charges Inpatient E&M: 48624 Init Hosp L3
[2023-02-24] MEDS: Atorvastatin Calcium 20 MG Tablet PO (21:59)
[2023-02-24] MEDS: Insulin Lispro 100 UNIT/ML INSULN.PEN SC (22:02)
[2023-02-24 22:50] LABS: Bedside Glucose 152 mg/dL (74-106)
[2023-02-25] MEDS: Acetaminophen 325 MG Tablet 650 MG PO (02:50)
[2023-02-25 02:54] VITALS: BP 150/66; PULSE 90; RESP 18; TEMP 37.6; O2SAT 94
[2023-02-25 05:58] LABS: Absolute Lymphocyte Count 1.38 X10^3/uL (0.83-4.51); Absolute Neutrophil Count 13.9 X10^3/uL (2.0-7.7); Basophil# 0.03 X10^3/uL; Basophil% 0.2 % (0-1); Eosinophil# 0.01 X10^3/uL; Eosinophils% 0.1 % (0-5); Hematocrit 31.5 % (37-47); Hemoglobin 10.5 g/dL (12.0-15.0); Lymphocyte # 1.38 X10^3/ul (0.83-4.51); Lymphocyte % 8.1 % (19-41); Mean Corp Hgb Conc 33.3 g/dL (32-36); Mean Corpuscular Hgb 30.8 pg (27.0-32.0); Mean Corpuscular Volume 92.4 fL (81-99); Mean Platelet Vol. 8.7 fl (6.2-12.0); Monocyte# 1.69 X10^3/uL; Monocyte% 9.9 % (0-10); NRBC Flagged by Analyzer 0 % (0-5); Neutrophil # 13.89 X10^3/uL (2.7-7.7); Neutrophil % 80.9 % (47-70); POSITIVE DIFFERENTIAL YES; Platelet Count 206 K/mm3 (150-450); RBC Distribution Width CV 12.9 % (11.6-14.6); RBC Distribution Width SD 43.8 fl (35.1-43.9); Red Blood Count 3.41 M/mm3 (4.2-5.4); White Blood Count 17.1 K/mm3 (4.4-11.0)
[2023-02-25 06:04] LABS: Differential Indicated SCAN CRITERIA MET
[2023-02-25 06:35] LABS: Anion Gap 6 (5-15); BUN 11 mg/dL (7-18); BUN/Creat Ratio 16.4 RATIO (10-20); Calcium,Total 8.2 mg/dL (8.5-10.1); Chloride 102 mmol/L (98-107); Creatinine, Serum 0.67 mg/dL (0.55-1.02); EST Glomerular Filtration Rate 91 mL/min (>60); Est Glom Filt Rate - Afr Amer 110 mL/min (>60); Estimated Creatinine Clearance 39.59 ml/min; Glucose 107 mg/dL (74-106); Potassium 3.6 mmol/L (3.5-5.1); Sodium Level 133 mmol/L (136-145)
[2023-02-25 08:05] LABS: Bedside Glucose 97 mg/dL (74-106)
[2023-02-25 09:00] VITALS: BP 128/55; PULSE 77; RESP 18; TEMP 36.6; O2SAT 92
[2023-02-25] MEDS: Ceftriaxone 1 GM/50 ML BAG IV (09:36)
[2023-02-25] MEDS: Clopidogrel Bisulfate 75 MG Tablet PO (09:37)
[2023-02-25] MEDS: Sertraline 100 MG Tablet PO (09:37)
[2023-02-25] MEDS: Losartan Potassium 25 MG Tablet PO (09:37)
[2023-02-25] MEDS: Enoxaparin 40 MG/0.4 ML Syringe SC (09:37)
[2023-02-25] MEDS: Ensure Plus High Protein 120 ML LIQUID PO (09:41)
--- NOTE | 2023-02-25 09:47 | CASEMGMT ---
Social Work SW spoke w/pt, let her know that LW/POA are not on file, asked her to have her daughter bring in the documents as able, as she is listed as POA(Griselda Trivedi). Pt states understanding. RADHAMES Cosby
[2023-02-25] MEDS: Azithromycin 500 MG in Dextrose 5%-Water (250mL Bag) 250 ML 250 MG IV (10:33)
[2023-02-25 10:34] LABS: Ferritin 155 ng/mL (8-252); Iron 12 ug/dL (50-170); Iron Binding Capacity,Total 323 ug/dL (250-450); PERCENT IRON SATURATION 3.7 % (15.0-55.0)
[2023-02-25 10:56] LABS: Vitamin B12 421 pg/mL (211-911)
--- NOTE | 2023-02-25 11:10 | CASEMGMT ---
ALMA HERNANDEZ Assessment: Face to Face with pt for initial transition planning/care coordination assessment. RN DAVID introduced self and role at [facility], pt voices understanding and consents to assessment. Pt is A&O x4 and answers all questions appropriately at this time. Pt lying in bed on RA in no distress. Care providers, pharmacy, and demographics verified/updated. Admitting Dx: hypoxic resp failure with pna PCP:Lore Specialists:Pt states she is unsure Preferred Pharmacy: [facility] [place] [facility] [place] [facility] [place]: [place] LNOK: Griselda Trivedi dtr; Hanna Trivedi dtr Living Arrangements: Pt lives with grandson in a single story home with 3 steps to enter with a rail on both sides. Pt reports she is I in ADL's and denies concerns at home. Transportation: Pt drives self and denies concerns with transportation. DME:[facility] with sufficient supply of strips and lancets HHC/SNF: Pt denies hx of Pt states no concerns with going home at time of dc. Pt states no further concerns/needs. CM to follow. Advised pt to ask CM if any further question/concerns/needs arise, voices understanding. Pt Goal: Home Plan: Home
[2023-02-25] MEDS: Insulin Lispro 100 UNIT/ML INSULN.PEN SC (11:41)
[2023-02-25 12:00] LABS: Bedside Glucose 240 mg/dL (74-106)
[2023-02-25 13:07] VITALS: O2SAT 89
--- NOTE | 2023-02-25 14:11 | DCINST_ITS ---
Discharge Instructions Diet Discharge Diet: No restrictions Activity Discharge Activity: Return to Normal Activity Weight Bearing Status: Full weight bearing Follow Up Care Please Follow Up With: Kendall Torrez MD When: 1 to 2 weeks Test Results: Test results from this visit will be discussed in further detail at your follow- up appointment, if applicable. Pending Tests Upon Discharge: Blood cultures, sputum culture Discharge Plan Admission Admit Date/Time: 02/24/23 17:54 Primary Reason for Your Visit: Chest pain, cough Attending Provider: Frank Sung Primary Care Provider: Kendall Torrez Consulting Providers: Rudi Troy Instructions Additional Instructions / Restrictions: Please start taking the following medications: ? Doxycycline 100 mg twice daily through Friday 03/02, to complete 7-day course of antibiotics for your pneumonia ? Ferrous sulfate 325 mg every other day, for iron deficiency anemia Continue your home medications as normal. You will need to have follow-up imaging of your lungs (either a CAT scan or chest x-ray) to make sure the pneumonia has cleared up appropriately - I have documented this in my discharge summary that will go to your primary care doctor. Please follow-up with your primary care doctor in the next 1 to 2 weeks. Please follow-up with your pulmonology doctor as needed. Discharge Orders/Prescriptions Prescriptions: New ferrous sulfate [FeroSul] 325 mg (65 mg iron) Tablet 325 mg PO Q48 90 Days Qty: 45 1RF doxycycline hyclate 100 mg capsule 100 mg PO BID Qty: 11 0RF Continued albuterol sulfate 90 mcg/actuation HFA aerosol inhaler 2 puff inhalation Q6H PRN (Reason: SOB) metformin 500 mg tablet 500 mg PO DAILY atorvastatin 20 mg tablet 20 mg PO DAILY losartan 25 mg tablet 25 mg PO DAILY sertraline 100 mg tablet 100 mg PO DAILY clopidogrel [Plavix] 75 mg tablet 75 mg PO DAILY Referrals / Follow Up: Kendall Torrez MD [Primary Care Provider] - Disposition Disposition (needs filled in before D/C Order can be placed): Home, Self Care
--- NOTE | 2023-02-25 14:18 | PCM.DC.SUM ---
Providers Date of Admission: 02/24/23 Primary Care Physician: Dr. Kendall Torrez MD Reason For Visit: HYPOXIC RESP FAILURE WITH PNA Diagnosis Discharge Diagnosis (1) Pneumonia: Status: Acute Code(s): J18.9 - Pneumonia, unspecified organism (2) Acute respiratory failure with hypoxia: Status: Acute Code(s): J96.01 - Acute respiratory failure with hypoxia Medications at Discharge Home Medications albuterol sulfate 90 mcg/actuation aerosol inhaler 2 puff inhalation Q6H PRN SOB 02/01/22 atorvastatin 20 mg tablet 20 mg PO DAILY lowers cholesterol 02/01/22 clopidogrel 75 mg tablet (Plavix) 75 mg PO DAILY blood thinn 02/01/22 losartan 25 mg tablet 25 mg PO DAILY lowers cholesterol 02/01/22 metformin 500 mg tablet 500 mg PO DAILY diabtees 02/01/22 sertraline 100 mg tablet 100 mg PO DAILY depression 02/01/22 doxycycline monohydrate 100 mg capsule 100 mg PO BID 5 days #10 caps 02/26/23 ferrous sulfate 325 mg (65 mg iron) tablet,delayed release 325 mg PO .q48 #45 tabs 02/26/23 Hospital Course Operations None Procedures EKG and - (Chest x-ray, CT brain without contrast, CTA chest) Summary of Care Provided Minutes Spent on Discharge: 38 Hospital Course: Patient is a 77-year-old female with history of COPD not on home O2, current smoker, CAD, hypertension, type 2 diabetes and anxiety/depression who presented to [facility] ED on 02/24/2023 with left-sided chest pain. Short hospital course with multiple medical concerns addressed as below. Community-acquired pneumonia with unknown organism, acute on chronic hypoxic respiratory failure (improved): CTA chest on admit showed a lingular and left upper lobe infiltrate suggesting pneumonia, as well as a small left lateral effusion. Patient was desaturating to the low 80s with ambulation on admission. WBC count elevated and low-grade fever on admission, otherwise did not meet SIRS criteria, sepsis ruled out. Urine antigens negative, COVID and flu negative. Sputum culture negative, blood cultures with no growth at 48 hours. Patient was started on IV ceftriaxone and azithromycin on admission and had good improvement with this and multiple breathing treatments early in admission. Was weaned off supplemental oxygen on 02/25, maintained oxygen saturations in the 80 to 90% range with ambulation at that time. WBC count remained elevated on 02/25, then significantly improved to normal range on 02/26. Patient was discharged home with plan to complete a 7-day course of doxycycline on discharge. Confusion, resolved: Unclear etiology but may have been secondary to hypoxia on admission. Patient was notably alert and oriented on my exams on 02/25 and 02/26. PT and OT evaluated the patient, patient walked multiple laps around the floor without issue and did not qualify for home health care. Current smoker: Per family, patient smokes around 2 packs of cigarettes per day. She refused to nicotine patch during admission but appeared anxious to be discharged from early on admission, and family suspected this was so that she can go home to smoke. Suspect that patient's pneumonia may be secondary to typical organisms implicated with smokers. Recommend further management outpatient. Discharge diagnoses: ? Community-acquired pneumonia with unknown organism ? Acute on chronic hypoxic respiratory failure, improved ? Confusion, resolved ? Current smoker ? CAD ? Hypertension ? Type 2 diabetes ? Anxiety/depression Total clinical time spent by myself addressing the patient's discharge needs: 38 minutes. Physical Exam Const alert, no apparent distress and average body habitus Constitutional Narrative: Pleasant elderly female, sitting comfortably in bedside chair, conversing normally, no acute distress. General Appearance: cooperative and comfortable HEENT normocephalic, head/scalp atraumatic, hearing grossly normal bilaterally, nasal mucous membranes and turbinates normal and moist oral mucous membranes Eyes PERRL, EOMs intact bilaterally and conjunctivae normal Neck full ROM, no lymphadenopathy and supple Lymph Lymphatic: no lymphadenopathy noted Chest inspection of chest normal Resp Resp Narrative: Mildly decreased breath sounds noted bilaterally, with mild crackles on left. No wheezing noted. Satting well on room air, no increased work of breathing noted. Cardio regular rate, regular rhythm, no murmurs and peripheral pulses 2+ throughout GI normal to inspection, nondistended, normoactive bowel sounds, soft to palpation, non-tender and non-distended Back/Spine normal ROM Extremity normal to inspection, full ROM and no pedal edema Skin no rashes or lesions noted Psych mental status grossly normal Weight / BMI Weight Weight: 54.601 kg Body Mass Index (BMI) 21.3 ABG / Lab / Microbiology Data 02/26/23 07:00 02/26/23 07:00 Laboratory: Laboratory Results - last 24 hr 02/24/23 14:09: WBC 15.4 H, RBC 3.95 L, Hgb 12.1, Hct 36.0 L, MCV 91.1, MCH 30.6, MCHC 33.6, RDW Std Deviation 42.8, RDW Coeff of [place] 12.9, Plt Count 228, MPV 8.9, Immature Gran % (Auto) 0.600, Neut % (Auto) 84.9 H, Lymph % (Auto) 6.9 L, [place] % (Auto) 7.2, Eos % (Auto) 0.2, Baso % (Auto) 0.2, Absolute Neuts (auto) 13.1 H, Absolute Lymphs (auto) 1.07, Nucleated RBC % 0, D-Dimer Quant (PE/DVT) 2.27 H*, Sodium Cancelled, Potassium Cancelled, Chloride Cancelled, Carbon Dioxide Cancelled, Anion Gap Cancelled, BUN Cancelled, Creatinine Cancelled, Estim Creat Clear Calc Cancelled, Est GFR (MDRD) Af Amer Cancelled, Est GFR (MDRD) Non-Af Cancelled, BUN/Creatinine Ratio Cancelled, Glucose Cancelled, Calcium Cancelled, Troponin I High Sens Cancelled 02/24/23 14:36: Sodium 131 L, Potassium 3.9, Chloride 97 L, Carbon Dioxide 27.0, Anion Gap 7, BUN 18, Creatinine 0.88, Estim Creat Clear Calc 44.99, Est GFR (MDRD) Af Amer 80, Est GFR (MDRD) Non-Af 66, BUN/Creatinine Ratio 20.3 H, Glucose 108 H, Calcium 8.9, Troponin I High Sens 6 02/24/23 15:16: Lactic Acid 1.9 02/24/23 16:15: Urine Color Yellow, Urine Clarity Sl. Cloudy, Urine pH 7.0, Ur Specific [place] 1.005, Urine Protein 15 H, Urine Glucose (UA) Normal, Urine Ketones Negative, Urine Occult Blood 50 H, Urine Nitrite Negative, Urine Bilirubin Negative, Urine Urobilinogen Normal, Ur Leukocyte Esterase 25 H, Urine RBC 0-5 SEEN, Urine WBC 0-5 SEEN, Ur Squamous Epith Cells 0-5 SEEN, Urine Bacteria 0 SEEN, Urine Mucus 0 SEEN 02/24/23 22:01: POC Glucose 152 H 02/25/23 05:51: WBC 17.1 H, RBC 3.41 L, Hgb 10.5 L, Hct 31.5 L, MCV 92.4, MCH 30.8, MCHC 33.3, RDW Std Deviation 43.8, RDW Coeff of [place] 12.9, Plt Count 206, MPV 8.7, Immature Gran % (Auto) 0.800, Neut % (Auto) 80.9 H, Lymph % (Auto) 8.1 L, [place] % (Auto) 9.9, Eos % (Auto) 0.1, Baso % (Auto) 0.2, Absolute Neuts (auto) 13.9 H, Absolute Lymphs (auto) 1.38, Nucleated RBC % 0, Diff Path Review September, Sodium 133 L, Potassium 3.6, Chloride 102, Carbon Dioxide 25.0, Anion Gap 6, BUN 11, Creatinine 0.67, Estim Creat Clear Calc 39.59, Est GFR (MDRD) Af Amer 110, Est GFR (MDRD) Non-Af 91, BUN/Creatinine Ratio 16.4, Glucose 107 H, Calcium 8.2 L, Iron 12 L, TIBC 323, Iron Saturation 3.7 L, Ferritin 155, Vitamin B12 421, Folate 9.50 02/25/23 06:44: POC Glucose 97 02/25/23 11:39: POC Glucose 240 H Microbiology: Microbiology 02/24/23 16:15 Urine, Clean Catch Legionella Antigen - Final 02/24/23 16:15 Urine, Clean Catch Streptococcus pneumoniae Antigen (M - Final 02/24/23 14:23 Nasal Secretion SARS-CoV-2 & FLU Antigen (Rapid) - Final Radiography Diagnostic Testing: Radiology Impression Chest X-Ray 02/24/23 13:45 IMPRESSION: Mild left pleural effusion with patchy opacity in the left midlung, concerning for pneumonia. Recommend follow-up to resolution. Electronically Signed: Amarilys Pierce MD at 14:37 EDT , Brain CT 02/24/23 13:46 IMPRESSION: No acute intracranial process identified. Chronic involutional and white matter changes. Electronically Signed: Amarilys Pierce MD at 14:30 EDT , Chest CTA 02/24/23 14:54 IMPRESSION: 1. No demonstrated pulmonary embolism or arterial dissection. 2. There is a lingular and left upper lobe infiltrate suggesting a pneumonia. 3. There is a small left pleural effusions. Electronically Signed: Eulalio Huynh MD at 16:15 EDT , D/C Instructions Discharge Diet: No restrictions Weight Bearing Status: Full weight bearing Pending Tests Upon Discharge: Blood cultures, sputum culture Please Follow Up With: Kendall Torrez MD When: 1 to 2 weeks Meaningful Use Info Meaningful Use Diagnoses (Choose all that apply): None applicable Discharge Plan Admission Admit Date/Time: 02/24/23 17:54 Primary Reason for Your Visit: Chest pain, cough Attending Provider: Frank Sung Primary Care Provider: Kendall Torrez Consulting Providers: Rudi Troy Instructions Additional Instructions / Restrictions: Please start taking the following medications: ? Doxycycline 100 mg twice daily through Friday 03/02, to complete 7-day course of antibiotics for your pneumonia ? Ferrous sulfate 325 mg every other day, for iron deficiency anemia Continue your home medications as normal. You will need to have follow-up imaging of your lungs (either a CAT scan or chest x-ray) to make sure the pneumonia has cleared up appropriately - I have documented this in my discharge summary that will go to your primary care doctor. Please follow-up with your primary care doctor in the next 1 to 2 weeks. Please follow-up with your pulmonology doctor as needed. Discharge Orders/Prescriptions Prescriptions: New doxycycline monohydrate 100 mg Capsule 100 mg PO BID 5 Days Qty: 10 0RF ferrous sulfate 325 mg (65 mg iron) tablet,delayed release (DR/EC) 325 mg PO .q48 Qty: 45 3RF Continued albuterol sulfate 90 mcg/actuation HFA aerosol inhaler 2 puff inhalation Q6H PRN (Reason: SOB) metformin 500 mg tablet 500 mg PO DAILY atorvastatin 20 mg tablet 20 mg PO DAILY losartan 25 mg tablet 25 mg PO DAILY sertraline 100 mg tablet 100 mg PO DAILY clopidogrel [Plavix] 75 mg tablet 75 mg PO DAILY Referrals / Follow Up: Kendall Torrez MD [Primary Care Provider] - Disposition Disposition (needs filled in before D/C Order can be placed): Home, Self Care Charges/Coding Visit Charges Inpatient E&M: 31294 Disch Hosp >30min
[2023-02-25 15:00] VITALS: BP 127/51; PULSE 83; RESP 22; TEMP 37.3; O2SAT 93
--- NOTE | 2023-02-25 17:00 | PCM.PN.HOSP ---
Reason for Visit Reason for Visit: Diagnoses Pneumonia, unspecified organism (02/24/23) Acute respiratory failure with hypoxia (02/24/23) Subjective Subjective Patient seen at bedside this morning. Sitting comfortably at edge of bed, alert, conversing normally, no acute distress. Patient was answering my questions appropriately and did not appear to be confused. She was breathing comfortably on room air with oxygen saturations in the low 90s at rest. She reported a mild cough with some sputum production that was improved from yesterday. Has mild left-sided chest pain with coughing but chest pain is otherwise significantly improved from yesterday. She denies any fevers or chills. Denies any lightheadedness or dizziness. No other acute concerns currently. Objective Data Objective Data Vital Signs: Vital Signs Temp Pulse Resp BP Pulse Ox O2 Del Method O2 Flow Rate 97.8 F 77 18 128/55 H 89 Room Air 2 02/25/23 09:00 02/25/23 09:00 02/25/23 09:00 02/25/23 09:00 02/25/23 13:07 02/25/23 09:28 02/25/23 08:16 Oxygen Flow Rate (L/min) 2 Oxygen Delivery Method Room Air Weight: 54.601 kg Body Mass Index (BMI) 21.3 Intake & Output: Intake and Output for Last 24 Hours 02/23/23 02/24/23 02/25/23 23:59 23:59 23:59 Intake Total 1305 / 1430 430 / 430 Balance 1305 / 1430 430 / 430 Lab / Micro Data 02/25/23 05:51 02/25/23 05:51 Labs: Laboratory Results - last 24 hr 02/24/23 22:01: POC Glucose 152 H 02/25/23 05:51: WBC 17.1 H, RBC 3.41 L, Hgb 10.5 L, Hct 31.5 L, MCV 92.4, MCH 30.8, MCHC 33.3, RDW Std Deviation 43.8, RDW Coeff of [place] 12.9, Plt Count 206, MPV 8.7, Immature Gran % (Auto) 0.800, Neut % (Auto) 80.9 H, Lymph % (Auto) 8.1 L, [place] % (Auto) 9.9, Eos % (Auto) 0.1, Baso % (Auto) 0.2, Absolute Neuts (auto) 13.9 H, Absolute Lymphs (auto) 1.38, Nucleated RBC % 0, Diff Path Review May foll, Sodium 133 L, Potassium 3.6, Chloride 102, Carbon Dioxide 25.0, Anion Gap 6, BUN 11, Creatinine 0.67, Estim Creat Clear Calc 39.59, Est GFR (MDRD) Af Amer 110, Est GFR (MDRD) Non-Af 91, BUN/Creatinine Ratio 16.4, Glucose 107 H, Calcium 8.2 L, Iron 12 L, TIBC 323, Iron Saturation 3.7 L, Ferritin 155, Vitamin B12 421, Folate 9.50 02/25/23 06:44: POC Glucose 97 02/25/23 11:39: POC Glucose 240 H Micro: Microbiology 02/24/23 16:15 Urine, Clean Catch Legionella Antigen - Final 02/24/23 16:15 Urine, Clean Catch Streptococcus pneumoniae Antigen (M - Final 02/24/23 14:23 Nasal Secretion SARS-CoV-2 & FLU Antigen (Rapid) - Final Physical Exam Const alert, no apparent distress and average body habitus General Appearance: cooperative and comfortable HEENT normocephalic, head/scalp atraumatic, hearing grossly normal bilaterally, nasal mucous membranes and turbinates normal and moist oral mucous membranes Eyes PERRL, EOMs intact bilaterally and conjunctivae normal Neck full ROM, no lymphadenopathy and supple Lymph Lymphatic: no lymphadenopathy noted Chest inspection of chest normal Resp Resp Narrative: Mildly decreased breath sounds noted bilaterally, with mild crackles on left. No wheezing noted. Satting well on room air, no increased work of breathing noted. Cardio regular rate, regular rhythm, no murmurs and peripheral pulses 2+ throughout GI normal to inspection, nondistended, normoactive bowel sounds, soft to palpation, non-tender and non-distended Back/Spine normal ROM Extremity normal to inspection, full ROM and no pedal edema Skin no rashes or lesions noted Psych mental status grossly normal Assessment & Plan Assessment/Plan (1) Pneumonia: PLAN: Plan Patient is a 77-year-old female with history of COPD not on home O2, current smoker, CAD, hypertension, type 2 diabetes and anxiety/depression who presented to [facility] on 02/24/[facility]23 with left-sided chest pain. 1. Community-acquired pneumonia with unknown organism; acute on chronic hypoxic respiratory failure, improving CTA chest on admit showed a lingular and left upper lobe infiltrate suggesting pneumonia, as well as a small left pleural effusion. Patient desaturating to the low 80s with ambulation on admission. WBC count elevated and low-grade fever on 02/24, otherwise did not meet SIRS criteria, sepsis ruled out. Urine antigens negative, COVID and flu negative. Blood cultures and sputum culture pending. Patient notably had oxygen saturations in the 88 to 90% range with ambulation on 02/25. ? Okay to de-escalate to p.o. doxycycline, plan for 7-day course on discharge. Follow-up blood cultures and sputum culture. Repeat CBC tomorrow morning to ensure improving leukocytosis. Wean supplemental oxygen as able, will not need home oxygen on discharge. 2. Confusion, improving Unclear baseline but family reports that patient appeared confused on admission and continues to appear confused at times on 02/25. May be secondary to mild hypoxia versus mild metabolic encephalopathy in setting of pneumonia. ? Alert and oriented on my exam on 02/25. Continue to monitor. PT/OT/case management following, patient notably was able to walk multiple laps around the floor without issue on 02/25, does not qualify for home health care. 3. Current smoker ? Per family, smoking around 2 packs/day of cigarettes. Patient currently refusing nicotine patch but family thinks patient wants to be discharged so that she can go smoke. Okay to offer nicotine patch as needed. Chronic medical conditions: ? CAD: Continue home atorvastatin, Plavix. ? Hypertension: Continue home losartan. ? Type 2 diabetes: Continue home metformin. ? Anxiety/depression: Continue home sertraline. DVT prophylaxis: Lovenox CODE STATUS: Full code, verified Expected disposition: Home, 1 to 2 days Total clinical time spent by myself addressing the patient's medical issues, reviewing all the data, and collaborating with patient's care team: 35 minutes. Charges/Coding Visit Charges Inpatient E&M: 02518 Subs Hosp L2
[2023-02-25 17:15] LABS: Bedside Glucose 83 mg/dL (74-106)
[2023-02-25 20:22] VITALS: BP 136/64; PULSE 87; RESP 18; TEMP 36.7; O2SAT 92
[2023-02-25] MEDS: Atorvastatin Calcium 20 MG Tablet PO (20:30)
[2023-02-25 21:39] LABS: Bedside Glucose 137 mg/dL (74-106)
[2023-02-26 02:35] VITALS: BP 124/94; PULSE 87; RESP 17; TEMP 36.9; O2SAT 91
[2023-02-26 04:35] VITALS: BP 128/90; PULSE 71; RESP 18; TEMP 36.9; O2SAT 92
[2023-02-26 06:35] LABS: Bedside Glucose 87 mg/dL (74-106)
[2023-02-26 07:06] VITALS: O2SAT 92
[2023-02-26 07:20] LABS: Hematocrit 32.9 % (37-47); Hemoglobin 10.9 g/dL (12.0-15.0); Mean Corp Hgb Conc 33.1 g/dL (32-36); Mean Corpuscular Hgb 30.5 pg (27.0-32.0); Mean Corpuscular Volume 92.2 fL (81-99); Mean Platelet Vol. 8.7 fl (6.2-12.0); Platelet Count 230 K/mm3 (150-450); RBC Distribution Width CV 12.8 % (11.6-14.6); RBC Distribution Width SD 43.5 fl (35.1-43.9); Red Blood Count 3.57 M/mm3 (4.2-5.4); White Blood Count 8.9 K/mm3 (4.4-11.0)
[2023-02-26 07:58] LABS: Anion Gap 6 (5-15); BUN 13 mg/dL (7-18); BUN/Creat Ratio 16.3 RATIO (10-20); Calcium,Total 8.5 mg/dL (8.5-10.1); Chloride 104 mmol/L (98-107); EST Glomerular Filtration Rate 74 mL/min (>60); Est Glom Filt Rate - Afr Amer 90 mL/min (>60); Estimated Creatinine Clearance 49.49 ml/min; Glucose 139 mg/dL (74-106); Potassium 3.3 mmol/L (3.5-5.1); Sodium Level 136 mmol/L (136-145)
[2023-02-26] MEDS: Clopidogrel Bisulfate 75 MG Tablet PO (09:32)
[2023-02-26] MEDS: Doxycycline 100 MG CAPSULE PO (09:32)
[2023-02-26] MEDS: Losartan Potassium 25 MG Tablet PO (09:32)
[2023-02-26] MEDS: Ferrous Sulfate 325 MG Tablet PO (09:32)
[2023-02-26] MEDS: Potassium Chloride Oral Tablet 20 MEQ 40 MEQ PO (09:32)
[2023-02-26] MEDS: Enoxaparin 40 MG/0.4 ML Syringe SC (09:32)
[2023-02-26 09:36] VITALS: BP 133/72; PULSE 84; RESP 17; TEMP 37; O2SAT 91
[2023-02-26 09:57] LABS: Pathologist Review Reviewed
[2023-02-26 11:30] LABS: Bedside Glucose 141 mg/dL (74-106)
--- NOTE | 2023-02-26 13:29 | PHA.DC_ITS ---
Pharmacy [facility] has performed discharge medication reconciliation and counseling for this patient. The patient's discharge medication list was reviewed for discrepancies and discrepancies were resolved. The patient was counseled on the following discharge medications and changes in medications for homegoing were reviewed. The Reason for Use, instructions for use, and potential side effects were reviewed for all new medications. The patient's questions regarding all of their medications were answered. 1. Doxycycline 100 mg PO BID x 5 days 2. Ferrous sulfate 325 mg PO daily The patient was able to verbally demonstrate an understanding of their discharge medications. Medications at Discharge Home Medications albuterol sulfate 90 mcg/actuation aerosol inhaler 2 puff inhalation Q6H PRN SOB 02/01/22 atorvastatin 20 mg tablet 20 mg PO DAILY lowers cholesterol 02/01/22 clopidogrel 75 mg tablet (Plavix) 75 mg PO DAILY blood thinn 02/01/22 losartan 25 mg tablet 25 mg PO DAILY lowers cholesterol 02/01/22 metformin 500 mg tablet 500 mg PO DAILY diabtees 02/01/22 sertraline 100 mg tablet 100 mg PO DAILY depression 02/01/22 doxycycline monohydrate 100 mg capsule 100 mg PO BID 5 days #10 caps 02/26/23 ferrous sulfate 325 mg (65 mg iron) tablet,delayed release 325 mg PO .q48 #45 tabs 02/26/23
== END 2023-02-26 13:38 | disposition home or self-care (01) | DRG 193 ==
LOC: ED 17:34 → MS3 17:54
PROVIDERS: Emergency Medicine; Physician Assistant; Admitting Provider Family Medicine; Emergency Provider Emergency Medicine; PCP Family Medicine; Visit Provider Hospitalist
DX: J18.9 Pneumonia, unspecified organism (principal); J96.01 Acute respiratory failure with hypoxia; J44.0 Chronic obstructive pulmonary disease with (acute) lower respiratory infection; E87.1 Hypo-osmolality and hyponatremia; J90 Pleural effusion, not elsewhere classified; E11.9 Type 2 diabetes mellitus without complications; I10 Essential (primary) hypertension; F32.A Depression, unspecified; E78.2 Mixed hyperlipidemia; F17.210 Nicotine dependence, cigarettes, uncomplicated; I25.10 Atherosclerotic heart disease of native coronary artery without angina pectoris; F41.9 Anxiety disorder, unspecified; J44.89 Other specified chronic obstructive pulmonary disease; Z79.02 Long term (current) use of antithrombotics/antiplatelets; R41.0 Disorientation, unspecified; Z86.73 Personal history of transient ischemic attack (TIA), and cerebral infarction without residual deficits
CPT/HCPCS: 36415; 70450; 71046; 71275; 80048; 81001; 82607; 82728; 82746; 82962; 83540; 83550; 83605; 84484; 85025; 85027; 85379; 87040; 87070; 87205; 87428; 87449; 93005; 94640; 94668; 97802; 99252; 99284; 99406; J7030; J7050; Q9967; A4216; G0463

== ENCOUNTER 2023-04-07 22:41 | Inpatient (IN) | payer MEDICARE, OTHER, SELFPAY ==
[2023-04-07 22:42] VITALS: O2SAT 93
[2023-04-07 22:43] VITALS: BP 135/61; PULSE 124; RESP 20; TEMP 36.6; O2SAT 88
--- NOTE | 2023-04-07 22:56 | EKG12_ITS ---
Test Reason : SOB Blood Pressure : / mmHG Vent. Rate : 104 BPM Atrial Rate : 104 BPM P-R Int : 128 ms QRS Dur : 084 ms QT Int : 336 ms P-R-T Axes : 081 057 075 degrees QTc Int : 441 ms Sinus tachycardia with Premature atrial complexes Nonspecific ST and T wave abnormality Abnormal ECG Confirmed by PAYTON VAZQUEZ, KAITLIN ([id number]), editor continuity and script ZENAIDA HINOJOSA ([id number]) on 04/09/2023 10:41:50 AM Referred By: Confirmed By:KAITLIN CAIN MD
--- NOTE | 2023-04-07 22:57 | ED.VIS.DYS ---
HPI History of Present Illness Chief Complaint: Shortness of Breath Informant: patient and family (daughter) Onset/Context/Timing Onset: Days (4) Context: gradual and onset Timing: Continuous Quality: Positive for Dyspnea on exertion and Wheezing Current Severity: Moderate Maximum Severity: Moderate Worsened by: Exertion and Coughing Relieved by: Rest and Albuterol Associated Symptoms cough, rhinorrhea, sore throat and green sputum; Negative for fever Chest Pain: Positive for None Narrative Narrative: 77-year-old female with history of COPD/asthma recently had pneumonia and was hospitalized for several days, she felt like she mostly got better but never completely got rid of the cough, has been worsening for the past 4 days or so. Daughter brought her in because they were checking her oxygen levels at home and she was 85-88% on room air and she does not have home oxygen. [facility] Medical History (Updated 04/08/23 @ 01:[address] Juan Villagomez MD) Acute bronchitis Anxiety Asthma-COPD overlap syndrome Chronic cough COPD (chronic obstructive pulmonary disease) Depression Diabetes Elevated blood pressure reading Essential hypertension History of left heart catheterization (LHC) (~02/02/04) Hypertension Intermittent cerebral ischemia Long-term memory loss Menopause Mixed hyperlipidemia Nonrheumatic aortic (valve) insufficiency Osteopenia Right wrist fracture Smoker Stage 2 moderate COPD by GOLD classification Stroke/cerebrovascular accident TIA (transient ischemic attack) Tobacco use Type 2 diabetes mellitus Wheezing Home Medications albuterol sulfate 90 mcg/actuation aerosol inhaler 2 puff inhalation Q6H PRN SOB 02/01/22 [History Last Taken Unknown] atorvastatin 20 mg tablet 20 mg PO DAILY lowers cholesterol 02/01/22 [History Last Taken 02/24/23] clopidogrel 75 mg tablet (Plavix) 75 mg PO DAILY blood thinn 02/01/22 [History Last Taken 02/24/23] losartan 25 mg tablet 25 mg PO DAILY lowers cholesterol 02/01/22 [History Last Taken 02/24/23] metformin 500 mg tablet 500 mg PO DAILY diabtees 02/01/22 [History Last Taken 02/24/23] sertraline 100 mg tablet 100 mg PO DAILY depression 02/01/22 [History Last Taken 02/24/23] ferrous sulfate 325 mg (65 mg iron) tablet,delayed release 325 mg PO .q48 #45 tabs 02/26/23 [Rx Last Taken Unknown] Allergy/AdvReac Type Severity Reaction Status Date / Time umeclidinium AdvReac Unknown Nausea Verified 04/07/23 22:43 [From Incruse Ellipta] oxycodone HCl [From Percocet] AdvReac Rash Verified 02/24/23 13:26 Family History Father CAD (coronary artery disease) History of coronary artery bypass surgery Diabetes Mother Diabetes Surgical History History of abdominal hysterectomy History of appendectomy History of History of rotator cuff surgery Social History Smoking Status: Current some day smoker tobacco type: cigarettes Tobacco: How many years used: 47 alcohol intake: never details: Rare substance use type: does not use caffeine: Yes Type: coffee Number of servings: 6 ROS ROS ED Constitutional Constitutional ED: Denies chills or fever(s) Eyes Eyes: Denies change in vision or diplopia ENT ENT ED: Reports nasal congestion, rhinorrhea and sore throat; Denies ear pain Cardiovascular Cardiovascular: Denies chest pain, leg edema, orthopnea, palpitations or radiating jaw, neck or arm pain Respiratory/Chest Respiratory/Chest: Reports cough, dyspnea and sputum; Denies orthopnea Gastrointestinal Gastrointestinal: Denies abdominal pain, diarrhea, nausea or vomiting Genitourinary Genitourinary ED: Denies dysuria or hematuria Musculoskeletal Musculoskeletal: Denies back pain or neck pain Integumentary Denies abscess or rash Neurologic Neurologic: Denies headache(s), paresthesias or weakness Psychiatric Psychiatric: Denies anxiety or suicidal thoughts EXAM Physical Exam Const Vital Signs: 04/07/23 22:43 04/07/23 22:42 04/07/23 23:21 Temperature 98 F Temperature Source Temporal Pulse Rate 124 H Respiratory Rate 20 H Respiratory Effort Respiratory Depth Respiratory Pattern Blood Pressure 135/61 H Blood Pressure Mean 85 Pulse Ox 88 93 93 Oxygen Delivery Method Room Air Nasal Cannula Nasal Cannula Oxygen Flow Rate (L/min) 2 2 04/07/23 23:24 04/08/23 00:02 04/08/23 00:30 Temperature Temperature Source Pulse Rate 104 H Respiratory Rate 20 H Respiratory Effort Short of Breath Respiratory Depth Normal Respiratory Pattern Normal Normal Blood Pressure Blood Pressure Mean Pulse Ox 95 Oxygen Delivery Method Nasal Cannula Oxygen Flow Rate (L/min) 2 Positive well nourished and well developed General Appearance ED: well developed and NAD HEENT Reports moist mucous membranes normocephalic and atraumatic Eyes PERRL and EOMs intact bilaterally Neck full ROM, supple and no JVD Resp normal respiratory effort Resp Narrative: Expiratory wheezes throughout all lung ambrocio, prolonged expiratory phase, no distress or Rales/rhonchi. Cardio regular rate, regular rhythm and no murmurs Rate: tachycardic GI non-tender and non-distended Auscultation: normoactive bowel sounds Palpation: soft Back/Spine no CVA tenderness General Back: other FROM Extremity normal to inspection General Extremety ED: Negative for edema, pulses abnormal or tenderness General Extremity: Negative for edema or pulses abnormal Neuro oriented x3, CN's II-XII intact bilaterally and no sensory deficits noted Sensorium / Orientation: awake and alert Motor Exam: strength 5/5 throughout Psych mental status grossly normal Skin no rashes or lesions noted and no wounds MDM MDM MDM Narrative Medical decision making narrative: 2 view chest x-ray on my interpretation shows infiltrate in the left upper lobe but it is resolving continuously compared to prior films, no new infiltrates according to radiology which I agree with. Nonspecific leukocytosis, the rest of her labs are unremarkable. Troponin within normal limits EKG sinus and similar to baseline. After nebulizer treatment she is breathing better, but taken her off of the oxygen she desatted to 86% on room air without leaving the bed. Placed back on oxygen, she does not have home oxygen, plan is for admission. Given Solu-Medrol 125 and an oral doxycycline, basically to cover for bacterial superinfection, no evidence of acute pneumonia here. COVID and influenza negative. Lab Data Attestation: I reviewed the patient's lab results. Labs: Laboratory Results - last 24 hr 04/07/23 23:15 WBC 15.1 H RBC 3.68 L Hgb 11.1 L Hct 33.7 L MCV 91.6 MCH 30.2 MCHC 32.9 RDW Std Deviation 43.8 RDW Coeff of Ana Maria 13.1 Plt Count 292 MPV 8.7 Immature Gran % (Auto) 0.500 Neut % (Auto) 74.3 H Lymph % (Auto) 12.1 L Hernando % (Auto) 12.6 H Eos % (Auto) 0.1 Baso % (Auto) 0.4 Absolute Neuts (auto) 11.2 H Absolute Lymphs (auto) 1.82 Nucleated RBC % 0 Differential Comment SCANNED Diff Path Review May foll Plt Morphology Comment LARGE Sodium 131 L Potassium 3.7 Chloride 95 L Carbon Dioxide 30.0 Anion Gap 6 BUN 19 H Creatinine 0.86 Estim Creat Clear Calc 45.23 Est GFR (MDRD) Af Amer 82 Est GFR (MDRD) Non-Af 68 BUN/Creatinine Ratio 22.0 H Glucose 214 H Calcium 8.8 Troponin I High Sens 6 Radiography Diagnostic Testing: Clinical Impression(s) from Imaging Studies Chest X-Ray 04/07/23 23:45 IMPRESSION: Decreased left upper lobe infiltrate and minimal residual left pleural effusion likely resolving pneumonia. Continued radiographic follow-up is recommended to confirm complete resolution. No new infiltrates. Electronically Signed: Poly Das MD at 0:12 EST Reading Location ID and State: [facility] / [place] Tel , Service support , Rhythm Strip Rhythm Strip: Sinus Tach Rate: 100 Ectopy: None EKG Initial EKG: Attestation: I personally reviewed and interpreted this EKG as follows: Interpretation: No Acute Injury Pattern, Sinus Tachycardia and Non-Specific ST Changes Prior EKG tracings: available for review Prior: Unchanged Management Discussion w/another healthcare provider: Hospitalist Discharge Plan Dx/Rx/DC Orders Clinical Impression: COPD with acute exacerbation, Hypoxemia, Acute bronchitis Disposition Disposition: Acute Care Hospital [facility]
[2023-04-07] MEDS: Albuterol 2.5 MG/3 ML VIAL.NEB. INHALATION (23:15)
[2023-04-07] MEDS: Ipratropium/Albuterol Sulfate 3 ML AMPUL.NEB INHALATION (23:15)
[2023-04-07 23:21] VITALS: O2SAT 93
[2023-04-07 23:24] VITALS: PULSE 104; RESP 20
[2023-04-07] MEDS: MethylPREDNISolone 125 MG/2 ML Vial IV (23:24)
[2023-04-07 23:28] LABS: Absolute Lymphocyte Count 1.82 X10^3/uL (0.83-4.51); Absolute Neutrophil Count 11.2 X10^3/uL (2.0-7.7); Basophil# 0.06 X10^3/uL; Basophil% 0.4 % (0-1); Eosinophil# 0.02 X10^3/uL; Eosinophils% 0.1 % (0-5); Hematocrit 33.7 % (37-47); Hemoglobin 11.1 g/dL (12.0-15.0); Lymphocyte # 1.82 X10^3/ul (0.83-4.51); Lymphocyte % 12.1 % (19-41); Mean Corp Hgb Conc 32.9 g/dL (32-36); Mean Corpuscular Hgb 30.2 pg (27.0-32.0); Mean Corpuscular Volume 91.6 fL (81-99); Mean Platelet Vol. 8.7 fl (6.2-12.0); Monocyte% 12.6 % (0-10); NRBC Flagged by Analyzer 0 % (0-5); Neutrophil % 74.3 % (47-70); POSITIVE DIFFERENTIAL YES; Platelet Count 292 K/mm3 (150-450); RBC Distribution Width CV 13.1 % (11.6-14.6); RBC Distribution Width SD 43.8 fl (35.1-43.9); Red Blood Count 3.68 M/mm3 (4.2-5.4); White Blood Count 15.1 K/mm3 (4.4-11.0)
[2023-04-07 23:38] LABS: Differential Indicated SCAN CRITERIA MET
--- NOTE | 2023-04-07 23:45 | RAD_ITS ---
INDICATION: cough sob EXAMINATION/TECHNIQUE: X-RAY - XR Chest 2 Views COMPARISON: 02/24/2023 FINDINGS: LINES/DEVICES: None. LUNGS: No consolidation. Left perihilar/lingular opacity is decreased compared to prior with minimal residual opacity in the region. Minimal residual left pleural effusion, decreased. No pneumothorax. MEDIASTINUM: Aorta is atherosclerotic. CARDIAC SILHOUETTE: Not enlarged. BONES AND SOFT TISSUES: Degenerative changes in the dorsal spine. RAD/Chest PA and Lateral IMPRESSION: Decreased left upper lobe infiltrate and minimal residual left pleural effusion likely resolving pneumonia. Continued radiographic follow-up is recommended to confirm complete resolution. No new infiltrates. Electronically Signed: Poly Das MD at 0:12 EST ,
[2023-04-07 23:46] LABS: Anion Gap 6 (5-15); BUN 19 mg/dL (7-18); Calcium,Total 8.8 mg/dL (8.5-10.1); Chloride 95 mmol/L (98-107); Creatinine, Serum 0.86 mg/dL (0.55-1.02); EST Glomerular Filtration Rate 68 mL/min (>60); Est Glom Filt Rate - Afr Amer 82 mL/min (>60); Estimated Creatinine Clearance 45.23 ml/min; Glucose 214 mg/dL (74-106); Potassium 3.7 mmol/L (3.5-5.1); Sodium Level 131 mmol/L (136-145); Troponin-I HS 6 pg/mL (3.0-54.0)
[2023-04-07 23:55] LABS: Differential Comment SCANNED; Platelet Morphology LARGE
[2023-04-08] VITALS (11 sets, daily range): BP systolic 103–151; BP diastolic 60–75; PULSE 76–96; RESP 18–22; TEMP 36.4–37.1; O2SAT 92–98; BMI 19.8
--- NOTE | 2023-04-08 01:16 | PCM.HP.STD ---
[facility] - General General Date of Admission: 04/08/23 Date of Service: 04/08/23 Chief Complaint: Shortness of breath HPI Narrative COLTON SARABIA, is a 77 F with a past medical history of essential hypertension, hyperlipidemia, diabetes mellitus type 2; of unknown control, ongoing active tobacco abuse with patient having started smoking at age 23; with subsequent asthma/COPD overlap syndrome, history of nonrheumatic aortic valve insufficiency, history of left heart cath (2003), history of TIA and CVA, depression with anxiety, osteoarthritis and recent history of hospitalization for pneumonia and acute exacerbation COPD who presents to [facility] ER complaining of shortness of breath. Ms. Sarabia reports her symptoms began approximately 4 days prior to admission with a gradual onset of dyspnea on exertion that progressed to shortness of breath at rest with a runny nose and sore throat. She also admits to wheezing and increasingly frequent cough that is made worse with exertion and is improved with rest and albuterol with patient having to use her rescue inhaler twice in the past 48 hours which is unusual for her. She admits her cough is productive of green sputum along with a runny nose but she denies fever, chills, nausea, vomiting or chest pain she can still speak in full sentences with oxygen saturations of ~85 % on room air and is not currently on home oxygen. In the ER she was diagnosed with acute exacerbation of asthma/COPD overlap syndrome complicated by x-ray evidence of left upper lobe infiltrate consistent with pneumonia with leukocytosis of 15.1 present on admission compounded by clinical evidence of acute hypoxic respiratory insufficiency in the unfortunate setting of active ongoing tobacco abuse and she was then admitted to the general medical floor for ongoing care for stay that is expected to be greater than 48 hours. [facility] Medical History Acute bronchitis Anxiety Asthma-COPD overlap syndrome Chronic cough COPD (chronic obstructive pulmonary disease) Depression Diabetes Elevated blood pressure reading Essential hypertension History of left heart catheterization (LHC) (~02/02/04) Hypertension Intermittent cerebral ischemia Long-term memory loss Menopause Mixed hyperlipidemia Nonrheumatic aortic (valve) insufficiency Osteopenia Right wrist fracture Smoker Stage 2 moderate COPD by GOLD classification Stroke/cerebrovascular accident TIA (transient ischemic attack) Tobacco use Type 2 diabetes mellitus Wheezing Home Medications albuterol sulfate 90 mcg/actuation aerosol inhaler 2 puff inhalation Q6H PRN SOB 02/01/22 [History Last Taken Unknown] atorvastatin 20 mg tablet 20 mg PO DAILY lowers cholesterol 02/01/22 [History Last Taken 02/24/23] clopidogrel 75 mg tablet (Plavix) 75 mg PO DAILY blood thinn 02/01/22 [History Last Taken 02/24/23] losartan 25 mg tablet 25 mg PO DAILY lowers cholesterol 02/01/22 [History Last Taken 02/24/23] metformin 500 mg tablet 500 mg PO DAILY diabtees 02/01/22 [History Last Taken 02/24/23] sertraline 100 mg tablet 100 mg PO DAILY depression 02/01/22 [History Last Taken 02/24/23] ferrous sulfate 325 mg (65 mg iron) tablet,delayed release 325 mg PO .q48 #45 tabs 02/26/23 [Rx Last Taken Unknown] Allergy/AdvReac Type Severity Reaction Status Date / Time umeclidinium AdvReac Unknown Nausea Verified 04/07/23 22:43 [From Incruse Ellipta] oxycodone HCl [From Percocet] AdvReac Rash Verified 02/24/23 13:26 Family History Father CAD (coronary artery disease) History of coronary artery bypass surgery Diabetes Mother Diabetes Surgical History History of abdominal hysterectomy History of appendectomy History of History of rotator cuff surgery Social History Smoking Status: Current some day smoker tobacco type: cigarettes Tobacco: How many years used: 47 alcohol intake: never details: Rare substance use type: does not use caffeine: Yes Type: coffee Number of servings: 6 ROS ROS Narrative Review of systems: Constitutional: Patient denies fever or chills. Eyes: Patient denies visual changes. ENT: Patient admits to nasal congestion rhinorrhea and sore throat but denies ear pain. Cardiovascular: Patient denies chest pain, orthopnea, lower extremity edema or palpitations. Respiratory: Patient admits to shortness of breath at rest with congested cough productive of greenish sputum and wheezing. Gastrointestinal: Patient denies abdominal pain, nausea, vomiting or diarrhea. Genitourinary: Patient denies dysuria, hematuria or urinary frequency. Musculoskeletal: Patient denies back pain or neck pain. Integumentary: Patient denies abscess or rash. Neurologic: Patient denies headache, paresthesias or focal neurologic weakness. Psychiatric: Patient denies depression, anxiety or suicidal thoughts. Hematologic: Patient denies easy bleeding or easy bruisability. Allergic: Patient denies lip swelling, tongue swelling or urticaria. 14 point review of systems otherwise negative except for positives noted above in HPI. Vital Signs Vital Signs Vital Signs: 04/07/23 22:43 04/07/23 22:42 04/07/23 23:21 Temperature 98 F Temperature Source Temporal Pulse Rate 124 H Respiratory Rate 20 H Respiratory Effort Respiratory Depth Respiratory Pattern Blood Pressure 135/61 H Blood Pressure Mean 85 Pulse Ox 88 93 93 Oxygen Delivery Method Room Air Nasal Cannula Nasal Cannula Oxygen Flow Rate (L/min) 2 2 04/07/23 23:24 04/08/23 00:02 04/08/23 00:30 Temperature Temperature Source Pulse Rate 104 H Respiratory Rate 20 H Respiratory Effort Short of Breath Respiratory Depth Normal Respiratory Pattern Normal Normal Blood Pressure Blood Pressure Mean Pulse Ox 95 Oxygen Delivery Method Nasal Cannula Oxygen Flow Rate (L/min) 2 Weight Weight: 113 lb 8 oz Body Mass Index (BMI) 20.0 Physical Exam Const alert, oriented x3, no apparent distress and average body habitus Constitutional Narrative: Patient is mildly short of breath at rest with a pink puffer phenotype. Her daughter who is a nurse is present at the bedside. General Appearance: cooperative HEENT normocephalic, head/scalp atraumatic, hearing grossly normal bilaterally, moist oral mucous membranes and oropharynx normal HEENT Narrative: Poor dentition noted. Eyes PERRL, EOMs intact bilaterally and conjunctivae normal Neck no lymphadenopathy and supple Resp Resp Narrative: Diminished air movement throughout with diffuse rhonchi and expiratory wheezes. Cardio regular rate and regular rhythm GI normal to inspection, nondistended, normoactive bowel sounds, soft to palpation, non-tender and non-distended Extremity normal to inspection, full ROM and no clubbing, cyanosis or edema Skin Skin Narrative: Patient has no evidence of rash at this time. Neuro oriented x3, CN's II-XII intact bilaterally, moves all extremities and no focal motor deficits Sensorium / Orientation: awake, alert, oriented to person, oriented to place and oriented to time Speech: speech normal Motor Exam: strength 5/5 throughout Psych affect normal Results Medical Records Data Attestation: I reviewed the patient's medical records Lab / Micro Data Attestation: I reviewed the patient's lab results. 04/07/23 23:15 04/07/23 23:15 Labs: Laboratory Results - last 24 hr 04/07/23 23:15: WBC 15.1 H, RBC 3.68 L, Hgb 11.1 L, Hct 33.7 L, MCV 91.6, MCH 30.2, MCHC 32.9, RDW Std Deviation 43.8, RDW Coeff of Ana Maria 13.1, Plt Count 292, MPV 8.7, Immature Gran % (Auto) 0.500, Neut % (Auto) 74.3 H, Lymph % (Auto) 12.1 L, Mills % (Auto) 12.6 H, Eos % (Auto) 0.1, Baso % (Auto) 0.4, Absolute Neuts (auto) 11.2 H, Absolute Lymphs (auto) 1.82, Nucleated RBC % 0, Differential Comment SCANNED, Diff Path Review May foll, Plt Morphology Comment LARGE, Sodium 131 L, Potassium 3.7, Chloride 95 L, Carbon Dioxide 30.0, Anion Gap 6, BUN 19 H, Creatinine 0.86, Estim Creat Clear Calc 45.23, Est GFR (MDRD) Af Amer 82, Est GFR (MDRD) Non-Af 68, BUN/Creatinine Ratio 22.0 H, Glucose 214 H, Calcium 8.8, Troponin I High Sens 6 Micro: Microbiology 04/07/23 23:20 Nasal Secretion SARS-CoV-2 & FLU Antigen (Rapid) - Final Rhythm Strip Rhythm Strip: Sinus Tach Rate: 100 Ectopy: None Imagaing Radiology Impression Chest X-Ray 04/07/23 23:45 IMPRESSION: Decreased left upper lobe infiltrate and minimal residual left pleural effusion likely resolving pneumonia. Continued radiographic follow-up is recommended to confirm complete resolution. No new infiltrates. Electronically Signed: Poly Das MD at 0:12 EST , Assessment & Plan Assessment/Plan (1) Pneumonia: QUALIFIERS: Laterality: left Lung location: upper lobe of lung Pneumonia type: due to unspecified organism Qualified Code(s): J18.9 - Pneumonia, unspecified organism (2) Acute bronchitis: QUALIFIERS: Bronchitis organism: unspecified organism Qualified Code(s): J20.9 - Acute bronchitis, unspecified (3) COPD with acute exacerbation: (4) Asthma-COPD overlap syndrome: (5) Hypoxemia: PLAN: Plan 1. Suspected left upper lobe pneumonia on chest x-ray this admission complicated by clinical evidence of acute exacerbation of asthma/COPD overlap syndrome in the setting of ongoing active tobacco abuse - Admit to general medical floor. Continue IV Solu-Medrol plus scheduled and as needed nebulizers along with IV doxycycline twice daily. Give Tylenol as needed for pain or fever. Tobacco cessation was strongly encouraged with nicotine patch offered to control cravings. 2. Acute hypoxic respiratory insufficiency due to #1 - Wean supplemental oxygen as tolerated. 3. Essential hypertension - Resume home medications of previous plus give as needed IV hydralazine for systolic blood pressure greater than 160 mmHg. 4. Hyperlipidemia - Continue statin. 5. Diabetes mellitus type 2; of unknown control - ADA diet. Fingerstick blood sugars before every meal and at bedtime + scale insulin. Check hemoglobin A1c to objectively assess quality of diabetic control. 6. History of nonrheumatic aortic valve insufficiency - Noted. 7. History of left heart cath (2003) - Stable. 8. History of TIA and CVA - Noted. Continue home medications as previous. 9. Depression with anxiety - Stable. 10. Osteoarthritis - Give Tylenol as needed for pain as noted above. 11. DVT prophylaxis - Lovenox 40 mg sq daily plus SCD's. Total time: Approximately 55 minutes. Charges/Coding Visit Charges Inpatient E&M: 68654 Init Hosp L2
[2023-04-08] MEDS: 0.9% Normal Saline (1000mL) 1,000 ML 75 ML IV (02:58)
[2023-04-08 06:13] LABS: Absolute Lymphocyte Count 0.76 X10^3/uL (0.83-4.51); Absolute Neutrophil Count 11.5 X10^3/uL (2.0-7.7); Basophil# 0.04 X10^3/uL; Basophil% 0.3 % (0-1); Hematocrit 32.6 % (37-47); Hemoglobin 10.7 g/dL (12.0-15.0); Lymphocyte # 0.76 X10^3/ul (0.83-4.51); Lymphocyte % 5.9 % (19-41); Mean Corp Hgb Conc 32.8 g/dL (32-36); Mean Corpuscular Hgb 30.1 pg (27.0-32.0); Mean Corpuscular Volume 91.8 fL (81-99); Monocyte% 4.6 % (0-10); NRBC Flagged by Analyzer 0 % (0-5); Neutrophil # 11.51 X10^3/uL (2.7-7.7); Neutrophil % 88.7 % (47-70); Platelet Count 292 K/mm3 (150-450); RBC Distribution Width SD 43.8 fl (35.1-43.9); Red Blood Count 3.55 M/mm3 (4.2-5.4)
[2023-04-08 06:46] LABS: Anion Gap 5 (5-15); BUN 18 mg/dL (7-18); BUN/Creat Ratio 22.5 RATIO (10-20); Chloride 98 mmol/L (98-107); EST Glomerular Filtration Rate 74 mL/min (>60); Est Glom Filt Rate - Afr Amer 90 mL/min (>60); Estimated Creatinine Clearance 48.07 ml/min; Glucose 202 mg/dL (74-106); Potassium 4.2 mmol/L (3.5-5.1); Sodium Level 131 mmol/L (136-145); Thyroid Stim Hormone (TSH) 0.22 uIU/mL (0.358-3.74)
[2023-04-08 08:40] LABS: Free T3 2.3 pg/mL (2.18-3.98); T4 Free Direct 1.45 ng/dL (0.76-1.46)
[2023-04-08] MEDS: metFORMIN HCl 500 MG Tablet PO (09:40)
[2023-04-08] MEDS: Famotidine 20 MG Tablet PO (09:40)
[2023-04-08] MEDS: Losartan Potassium 25 MG Tablet PO (09:40)
[2023-04-08] MEDS: Sertraline 100 MG Tablet PO (09:40)
[2023-04-08] MEDS: Clopidogrel Bisulfate 75 MG Tablet PO (09:40)
[2023-04-08] MEDS: MethylPREDNISolone 125 MG/2 ML Vial 60 MG IV ×2 (09:41→20:54)
[2023-04-08] MEDS: Enoxaparin 40 MG/0.4 ML Syringe SC (09:41)
[2023-04-08] MEDS: Glucerna Shake 120 ML LIQUID PO ×3 (09:50→18:43)
[2023-04-08 11:39] LABS: Bedside Glucose 255 mg/dL (74-106)
--- NOTE | 2023-04-08 11:52 | PCM.PROGNOTE ---
Subjective Subjective Patient seen and examined. She has no complaints today. She is still wheezing bilaterally. She denies shortness of breath and states is improved. She denies any chest pain, palpitations, dizziness, nausea vomiting or any other symptoms. Review of systems is otherwise negative. She has remained hemodynamically stable. She is on 2L of oxygen by nasal canula. Objective Data Objective Data Vital Signs: Vital Signs Temp Pulse Resp BP Pulse Ox O2 Del Method O2 Flow Rate 98.8 F 76 18 134/67 H 96 Nasal Cannula 2 04/08/23 09:25 04/08/23 09:25 04/08/23 09:25 04/08/23 09:25 04/08/23 09:25 04/08/23 09:25 04/08/23 09:25 Oxygen Flow Rate (L/min) 2 Oxygen Delivery Method Nasal Cannula Weight: 112 lb 3.445 oz Body Mass Index (BMI) 19.8 Lab / Micro Data 04/08/23 05:12 04/08/23 05:12 Labs: Laboratory Results - last 24 hr 04/07/23 23:15: WBC 15.1 H, RBC 3.68 L, Hgb 11.1 L, Hct 33.7 L, MCV 91.6, MCH 30.2, MCHC 32.9, RDW Std Deviation 43.8, RDW Coeff of Ana Maria 13.1, Plt Count 292, MPV 8.7, Immature Gran % (Auto) 0.500, Neut % (Auto) 74.3 H, Lymph % (Auto) 12.1 L, Graham % (Auto) 12.6 H, Eos % (Auto) 0.1, Baso % (Auto) 0.4, Absolute Neuts (auto) 11.2 H, Absolute Lymphs (auto) 1.82, Nucleated RBC % 0, Differential Comment SCANNED, Diff Path Review May foll, Plt Morphology Comment LARGE, Sodium 131 L, Potassium 3.7, Chloride 95 L, Carbon Dioxide 30.0, Anion Gap 6, BUN 19 H, Creatinine 0.86, Estim Creat Clear Calc 45.23, Est GFR (MDRD) Af Amer 82, Est GFR (MDRD) Non-Af 68, BUN/Creatinine Ratio 22.0 H, Glucose 214 H, Calcium 8.8, Troponin I High Sens 6 04/08/23 05:12: WBC 13.0 H, RBC 3.55 L, Hgb 10.7 L, Hct 32.6 L, MCV 91.8, MCH 30.1, MCHC 32.8, RDW Std Deviation 43.8, RDW Coeff of Ana Maria 13.0, Plt Count 292, MPV 9.0, Immature Gran % (Auto) 0.500, Neut % (Auto) 88.7 H, Lymph % (Auto) 5.9 L, Graham % (Auto) 4.6, Eos % (Auto) 0.0, Baso % (Auto) 0.3, Absolute Neuts (auto) 11.5 H, Absolute Lymphs (auto) 0.76 L, Nucleated RBC % 0, Sodium 131 L, Potassium 4.2, Chloride 98, Carbon Dioxide 28.0, Anion Gap 5, BUN 18, Creatinine 0.80, Estim Creat Clear Calc 48.07, Est GFR (MDRD) Af Amer 90, Est GFR (MDRD) Non-Af 74, BUN/Creatinine Ratio 22.5 H, Glucose 202 H, Calcium 9.0, TSH 0.22 L, Free T4 1.45, Free T3 pg/dL 2.3 04/08/23 11:17: POC Glucose 255 H Micro: Microbiology 04/07/23 23:20 Nasal Secretion SARS-CoV-2 & FLU Antigen (Rapid) - Final Radiography Diagnostic Testing: Radiology Impression Chest X-Ray 04/07/23 23:45 IMPRESSION: Decreased left upper lobe infiltrate and minimal residual left pleural effusion likely resolving pneumonia. Continued radiographic follow-up is recommended to confirm complete resolution. No new infiltrates. Electronically Signed: Poly Das MD at 0:12 EST , Rhythm Strip Rhythm Strip: Sinus Tach Rate: 100 Ectopy: None Physical Exam Const alert, oriented x3 and no apparent distress General Appearance: cooperative HEENT normocephalic, head/scalp atraumatic, moist oral mucous membranes and oropharynx normal Eyes PERRL and EOMs intact bilaterally Neck no lymphadenopathy, supple and no JVD Lymph Lymphatic: no lymphadenopathy noted and no lymphedema noted Resp Resp Narrative: mildly diminished breath sounds bibasally, bilateral wheezes or crackles. On 2L of oxygen by nasal canula. Cardio regular rate, regular rhythm, S1 normal heart sound, S2 normal heart sound and no murmurs GI normal to inspection, nondistended, normoactive bowel sounds, soft to palpation, non-tender and non-distended Extremity normal capillary refill, no clubbing, cyanosis or edema and no calf tenderness General Extremity: no tenderness to palpation of joints or extremities Skin General Skin Exam: no breakdown Neuro CN's II-XII intact bilaterally, no focal motor deficits, no sensory deficits noted and deep tendon reflexes 2+ bilaterally Motor Exam: strength 5/5 throughout and general weakness Psych thought process normal and cooperative Appearance: appropriate Assessment & Plan Assessment/Plan (1) Hypoxemia: (2) COPD with acute exacerbation: (3) Acute bronchitis: QUALIFIERS: Bronchitis organism: unspecified organism Qualified Code(s): J20.9 - Acute bronchitis, unspecified PLAN: Plan #Hypoxia due to acute COPD and asthma exacerbation on 2L of oxygen by nasal canula breathing treatment with bronchodilators on IV solumedrol and IV doxycycline. wbc is 13. #Probable pneumonia CXR showed suspected left lower lobe pneumonia. breathing treatment with bronchodilators on doxycycline. #Benign essential hypertension: on losartan #Hyperlipidemia: on statin #TYpe 2 diabetes mellitus: on ISS. Acuhecks ACHS #CAD: s/p stents. on statin. #Histoyr of TIA and CVA; on statin #Depression with anxiety: on sertraline #Osteoarthritis: on tylenol DVT prophylaxis; SCDs. Charges/Coding Visit Charges Inpatient E&M: 94304 Subs Hosp L2
[2023-04-08] MEDS: Doxycycline 100 MG in Dextrose 5%-Water (250mL Bag) 250 ML 250 MG IV ×2 (12:00→20:54)
[2023-04-08 13:26] LABS: Pathologist Review Reviewed
--- NOTE | 2023-04-08 14:55 | CASEMGMT ---
ALMA HERNANDEZ Assessment: ALMA HERNANDEZ to room to meet w/pt for initial transition planning/care coordination assessment. ALMA HERNANDEZ introduced self and role at [facility], pt voices understanding and consents to assessment. Pt is A&O and answers all questions appropriately at this time. Pt sitting up in [place] in room w/O2 in place via NC and in no distress. Care providers, pharmacy, and demographics verified/updated. PCP:Lore Specialists: Nate/Sol Reeder, EXPANDED FUNCTION DENTAL ASSISTANT--pulmonology Preferred Pharmacy: [facility] Retail Insurance: [facility], MMO Prescription Benefit: yes LNOK: Griselda Trivedi, dtr; Hanna Trivedi, grand-dtr Living Arrangements: Pt lives with grandson in a single story home with 3 steps to enter with a rail on both sides. There is also a ramp entrance into the home. Pt reports she is I in ADL's, IADL's, and manages her own medications and denies concerns at home. Transportation: Pt states she has not been driving much since have surgery for glaucoma on her eyes. Family help w/transportation. DME: functioning [employer] with sufficient supply of strips and lancets. Pt also has a pulse ox. She does not have home O2. She states, if she does qualify for O2, she is not sure what DME company to use and would like someone to talk w/her GD, Hanna, to ask her preference. HHC/SNF: Pt denies hx of either and declines wanting/needing HHC. Pt wishes to return home and states has no concerns with going home at time of discharge.? CM?to follow for home oxygen needs and any further discharge planning/needs.? Pt voices no further concerns/needs at this time.? Advised pt to ask for?CM?if any further questions/concerns/needs arise.? Voices understanding. Plan: Home Follow for possible home O2. Trista BAZAN RN, CM
--- NOTE | 2023-04-08 15:29 | CHAPLAIN ---
Type of Pastoral Visit _x__ Initial Visit ___ Follow-up Visit ___ On-call Visit ___ General Patient Visit ___ Spiritual Assessment ___ Family Conference ___ Bereavement ___ Rapid Response ___ Code Blue ___ Other (describe below) Pastoral Care Referral From _x__ Patient ___ Family ___ Nurse ___ Physician ___ Machine Filler Shredder ___ Producer ___ Other (describe below) Sacrament/Intervention _x__ Active listening ___ Anointing ___ Restorationist ___ Bereavement ___ Communion ___ Shweta exploration ___ _x__ Life review _x__ Prayer ___ Reconciliation ___ Sacrament of Sick _x__ Supportive presence ___ Wedding ___ Other (describe below) Pastoral Comments patient is welcoming and pleasant; pt gives a brief view of her current life and her family; pt has family members working in the hospital and is grateful for that; pt is accepting of presence and prayer for support
[2023-04-08 17:42] LABS: Bedside Glucose 192 mg/dL (74-106)
[2023-04-08] MEDS: Atorvastatin Calcium 20 MG Tablet PO (20:55)
[2023-04-08 21:43] LABS: Bedside Glucose 183 mg/dL (74-106)
[2023-04-09] VITALS (10 sets, daily range): BP systolic 130–142; BP diastolic 60–62; PULSE 70–81; RESP 16–20; TEMP 36.2–37.1; O2SAT 78–98; BMI 19.9
[2023-04-09 06:17] LABS: Absolute Lymphocyte Count 1.29 X10^3/uL (0.83-4.51); Absolute Neutrophil Count 11.1 X10^3/uL (2.0-7.7); Basophil# 0.01 X10^3/uL; Basophil% 0.1 % (0-1); Hematocrit 31.5 % (37-47); Hemoglobin 10.6 g/dL (12.0-15.0); Lymphocyte # 1.29 X10^3/ul (0.83-4.51); Lymphocyte % 9.3 % (19-41); Mean Corp Hgb Conc 33.7 g/dL (32-36); Mean Corpuscular Hgb 31.4 pg (27.0-32.0); Mean Corpuscular Volume 93.2 fL (81-99); Mean Platelet Vol. 8.9 fl (6.2-12.0); Monocyte# 1.41 X10^3/uL; Monocyte% 10.1 % (0-10); NRBC Flagged by Analyzer 0 % (0-5); Neutrophil # 11.14 X10^3/uL (2.7-7.7); Neutrophil % 79.9 % (47-70); Platelet Count 314 K/mm3 (150-450); RBC Distribution Width SD 44.7 fl (35.1-43.9); Red Blood Count 3.38 M/mm3 (4.2-5.4); White Blood Count 13.9 K/mm3 (4.4-11.0)
[2023-04-09 06:48] LABS: Anion Gap 5 (5-15); BUN 21 mg/dL (7-18); BUN/Creat Ratio 29.8 RATIO (10-20); Calcium,Total 8.8 mg/dL (8.5-10.1); Chloride 100 mmol/L (98-107); EST Glomerular Filtration Rate 86 mL/min (>60); Est Glom Filt Rate - Afr Amer 104 mL/min (>60); Estimated Creatinine Clearance 38.53 ml/min; Glucose 156 mg/dL (74-106); Sodium Level 134 mmol/L (136-145)
[2023-04-09] MEDS: Ferrous Sulfate 325 MG Tablet PO (09:02)
[2023-04-09] MEDS: metFORMIN HCl 500 MG Tablet PO (09:02)
[2023-04-09] MEDS: Sertraline 100 MG Tablet PO (09:02)
[2023-04-09] MEDS: Famotidine 20 MG Tablet PO (09:02)
[2023-04-09] MEDS: Losartan Potassium 25 MG Tablet PO (09:02)
[2023-04-09] MEDS: Enoxaparin 40 MG/0.4 ML Syringe SC (09:03)
[2023-04-09] MEDS: Clopidogrel Bisulfate 75 MG Tablet PO (09:04)
[2023-04-09] MEDS: MethylPREDNISolone 125 MG/2 ML Vial 60 MG IV ×2 (09:04→21:30)
[2023-04-09] MEDS: Doxycycline 100 MG in Dextrose 5%-Water (250mL Bag) 250 ML 200 MG IV (09:06)
[2023-04-09] MEDS: 0.9% Saline Lock 10 ML Syringe IV ×2 (09:06→11:04)
[2023-04-09] MEDS: 0.9% Normal Saline (250mL Bag) 250 ML 15 ML IV (09:10)
--- NOTE | 2023-04-09 09:22 | NURSING ---
92% was recovery at rest after activity.
--- NOTE | 2023-04-09 11:18 | PN_ITS ---
Subjective Subjective Patient seen and examined. She feels good today. She had an uneventful night. Her breathing is much better. Review of systems is otherwise negative. She has remained hemodynamically stable. Objective Data Objective Data Vital Signs: Vital Signs Temp Pulse Resp BP Pulse Ox O2 Del Method O2 Flow Rate 97.8 F 78 18 142/61 H 78 Room Air 2 04/09/23 08:56 04/09/23 08:56 04/09/23 08:56 04/09/23 08:56 04/09/23 09:22 04/09/23 08:59 04/09/23 09:22 Oxygen Flow Rate (L/min) [At 2 REST with Oxygen] Oxygen Flow Rate (L/min) 2 Oxygen Delivery Method Room Air Weight: 112 lb 6.972 oz Body Mass Index (BMI) 19.9 Intake & Output: Intake and Output for Last 24 Hours 04/07/23 04/08/23 04/09/23 23:59 23:59 23:59 Intake Total 1653.75 / 1653.75 871.50 / 871.50 Balance 1653.75 / 1653.75 871.50 / 871.50 Medical Nutrition Assessment Dietitian: Malnutrition Criteria Met Start: 04/08/23 12:20 Freq: Status: Active Protocol: Document 04/08/23 12:20 SLA (Rec: 04/08/23 12:20 SLA Desktop) Nutrition Malnutrition Evidence of Malnutrition Exists Yes Malnutrition (severe): Acute Illness/Injury Evidenced By Suboptimal Energy Intake ( Severe),Weight Loss (Severe) Clinical Problem Altered Nutrient-Related Laboratory Values Etiology related to diabetes and steroid administration Signs/Symptoms as evidenced by gluc 202 Status Active Problem Acute Disease or Injury Related Malnutrition Etiology related to inadequate energy intake Signs/Symptoms as evidenced by po intake <75% of est nutritional needs, 6.8 % unintended wt loss x past 5- 6 wks and pt appears to have fat/muscle loss in orbitals/ temporals, clavicles, arms. Status Active Problem Recommendation Dietitian Recommendations/Changes Will liberalize diet to regular d/t signs/symptoms of malnutrition Continue Glucerna shake 4x/day w/ medpass for increased nutrition if consumed. Lab / Micro Data 04/09/23 06:00 04/09/23 06:00 Labs: Laboratory Results - last 24 hr 11/26/23 23:15: Diff Path Review Reviewed 04/08/23 11:17: POC Glucose 255 H 04/08/23 16:57: POC Glucose 192 H 04/08/23 21:24: POC Glucose 183 H 04/09/23 06:00: WBC 13.9 H, RBC 3.38 L, Hgb 10.6 L, Hct 31.5 L, MCV 93.2, MCH 31.4, MCHC 33.7, RDW Std Deviation 44.7 H, RDW Coeff of Ana Maria 13.0, Plt Count 314, MPV 8.9, Immature Gran % (Auto) 0.600, Neut % (Auto) 79.9 H, Lymph % (Auto) 9.3 L, [place] % (Auto) 10.1 H, Eos % (Auto) 0.0, Baso % (Auto) 0.1, Absolute Neuts (auto) 11.1 H, Absolute Lymphs (auto) 1.29, Nucleated RBC % 0, Sodium 134 L, Potassium 4.0, Chloride 100, Carbon Dioxide 29.0, Anion Gap 5, BUN 21 H, Creatinine 0.70, Estim Creat Clear Calc 38.53, Est GFR (MDRD) Af Amer 104, Est GFR (MDRD) Non-Af 86, BUN/Creatinine Ratio 29.8 H, Glucose 156 H, Calcium 8.8 Micro: Microbiology 04/07/23 23:20 Nasal Secretion SARS-CoV-2 & FLU Antigen (Rapid) - Final Rhythm Strip Rhythm Strip: Sinus Tach Rate: 100 Ectopy: None Physical Exam Const alert, oriented x3, no apparent distress and average body habitus General Appearance: cooperative HEENT normocephalic, head/scalp atraumatic, hearing grossly normal bilaterally, moist oral mucous membranes and oropharynx normal Eyes PERRL, EOMs intact bilaterally and conjunctivae normal Neck no lymphadenopathy, supple and no JVD Lymph Lymphatic: no lymphadenopathy noted and no lymphedema noted Resp Resp Narrative: mildly diminished breath sounds bibasally, bilateral wheezes or crackles. On 2L of oxygen by nasal canula. Cardio regular rate, regular rhythm, S1 normal heart sound, S2 normal heart sound and no murmurs GI normal to inspection, nondistended, normoactive bowel sounds, soft to palpation, non-tender and non-distended Extremity normal to inspection, full ROM, normal capillary refill, no clubbing, cyanosis or edema and no calf tenderness General Extremity: no tenderness to palpation of joints or extremities Skin Skin Narrative: Patient has no evidence of rash at this time. General Skin Exam: no breakdown Neuro oriented x3, CN's II-XII intact bilaterally, moves all extremities, no focal motor deficits, no sensory deficits noted and deep tendon reflexes 2+ bilaterally Sensorium / Orientation: awake, alert, oriented to person, oriented to place and oriented to time Speech: speech normal Motor Exam: strength 5/5 throughout and general weakness Psych thought process normal, cooperative and affect normal Appearance: appropriate Assessment & Plan Assessment/Plan (1) Hypoxemia: (2) COPD with acute exacerbation: (3) Acute bronchitis: QUALIFIERS: Bronchitis organism: unspecified organism Qualified Code(s): J20.9 - Acute bronchitis, unspecified PLAN: Plan #Hypoxia due to acute COPD and asthma exacerbation * on 2L of oxygen by nasal canula * breathing treatment with bronchodilators * on IV solumedrol and IV doxycycline. * wbc is 13. * #Probable pneumonia * CXR showed suspected left lower lobe pneumonia. * breathing treatment with bronchodilators * on doxycycline. * #Benign essential hypertension: on losartan #Hyperlipidemia: on statin #TYpe 2 diabetes mellitus: on ISS. Acuhecks ACHS #CAD: s/p stents. on statin. #Histoyr of TIA and CVA; on statin #Depression with anxiety: on sertraline #Osteoarthritis: on tylenol DVT prophylaxis; SCDs. Charges/Coding Visit Charges Inpatient E&M: 83256 Subs Hosp L2
--- NOTE | 2023-04-09 11:23 | CASEMGMT ---
Social Work SW met w/pt, daughter on the phone. Daughter states pt does not have LW/POA and would like to complete while here. SW explained will assist with this as time allows. RADHAMES Cosby
[2023-04-09 11:31] LABS: Bedside Glucose 176 mg/dL (74-106)
[2023-04-09] MEDS: Albuterol 2.5 MG/3 ML VIAL.NEB. INHALATION ×2 (14:55→21:58)
[2023-04-09 16:53] LABS: Bedside Glucose 181 mg/dL (74-106)
[2023-04-09] MEDS: Atorvastatin Calcium 20 MG Tablet PO (21:30)
[2023-04-09] MEDS: Doxycycline 100 MG in Dextrose 5%-Water (250mL Bag) 250 ML 250 MG IV (21:36)
[2023-04-09 22:06] LABS: Bedside Glucose 142 mg/dL (74-106)
[2023-04-10 00:21] VITALS: PULSE 80; RESP 18; O2SAT 94
[2023-04-10 04:15] VITALS: BP 121/45; PULSE 61; RESP 18; TEMP 36.7; O2SAT 89; O2SAT 92; O2SAT 94
[2023-04-10 05:45] LABS: Bedside Glucose 155 mg/dL (74-106)
[2023-04-10 07:31] VITALS: BP 151/64; PULSE 70; RESP 20; TEMP 36.9; O2SAT 92
[2023-04-10 07:59] LABS: Absolute Lymphocyte Count 1.41 X10^3/uL (0.83-4.51); Absolute Neutrophil Count 8.6 X10^3/uL (2.0-7.7); Basophil# 0.01 X10^3/uL; Basophil% 0.1 % (0-1); Hemoglobin 9.9 g/dL (12.0-15.0); Lymphocyte # 1.41 X10^3/ul (0.83-4.51); Lymphocyte % 12.6 % (19-41); Mean Corpuscular Hgb 30.3 pg (27.0-32.0); Mean Corpuscular Volume 91.7 fL (81-99); Monocyte# 1.05 X10^3/uL; Monocyte% 9.4 % (0-10); NRBC Flagged by Analyzer 0 % (0-5); Neutrophil # 8.56 X10^3/uL (2.7-7.7); Neutrophil % 76.7 % (47-70); Platelet Count 343 K/mm3 (150-450); RBC Distribution Width SD 44.3 fl (35.1-43.9); Red Blood Count 3.27 M/mm3 (4.2-5.4); White Blood Count 11.2 K/mm3 (4.4-11.0)
[2023-04-10] MEDS: metFORMIN HCl 500 MG Tablet PO (08:05)
--- NOTE | 2023-04-10 10:03 | CASEMGMT ---
ALMA HERNANDEZ in to pt. room to discuss needs at discharge. Pt. informed that she does not qualify for home oxygen, and she voices understanding of this. Pt. does not voice any additional needs when, but states her daughter would like to talk with us. Pt. states daughter went home for a bit and left her cell phone here in the hospital, but will be back later today. ALMA HERNANDEZ encouraged pt. to put on her call light and ask for us once her daughter is back in the room. Pt. voices understanding. Pt. denies having any further needs at this time.
[2023-04-10] MEDS: Losartan Potassium 25 MG Tablet PO (10:15)
[2023-04-10] MEDS: Enoxaparin 40 MG/0.4 ML Syringe SC (10:15)
[2023-04-10 10:16] LABS: Anion Gap 6 (5-15); BUN 21 mg/dL (7-18); BUN/Creat Ratio 29.3 RATIO (10-20); Calcium,Total 8.8 mg/dL (8.5-10.1); Chloride 100 mmol/L (98-107); Creatinine, Serum 0.72 mg/dL (0.55-1.02); EST Glomerular Filtration Rate 84 mL/min (>60); Est Glom Filt Rate - Afr Amer 102 mL/min (>60); Estimated Creatinine Clearance 38.53 ml/min; Glucose 141 mg/dL (74-106); Potassium 4.3 mmol/L (3.5-5.1); Sodium Level 134 mmol/L (136-145)
[2023-04-10] MEDS: Clopidogrel Bisulfate 75 MG Tablet PO (10:16)
[2023-04-10] MEDS: Famotidine 20 MG Tablet PO (10:16)
[2023-04-10] MEDS: Sertraline 100 MG Tablet PO (10:17)
[2023-04-10] MEDS: Albuterol 2.5 MG/3 ML VIAL.NEB. INHALATION (10:59)
[2023-04-10 11:23] VITALS: PULSE 74; RESP 18
--- NOTE | 2023-04-10 11:59 | DCINST_ITS ---
Discharge Instructions Diet Discharge Diet: Low fat / Low cholesterol Activity Discharge Activity: Return to Normal Activity Weight Bearing Status: Weight bearing as tolerated Dressing / Incision Call your doctor if you observe: Fever of 101 or Higher, Shortness of breath, Dizziness, Swelling in the ankles and Chest pain Follow Up Care Test Results: Test results from this visit will be discussed in further detail at your follow- up appointment, if applicable. Discharge Plan Admission Admit Date/Time: 04/08/23 01:24 Primary Reason for Your Visit: COPD exacerbation Attending Provider: Annmarie Graham Primary Care Provider: Kendall Torrez Consulting Providers: Matty Harris Instructions Patient Instructions: Asthma and COPD Additional Instructions / Restrictions: use oxygen 2L for shortness of breath as needed. Counseled to quit smoking Discharge Orders/Prescriptions Prescriptions: New levofloxacin 500 mg tablet 500 mg PO DAILY Qty: 5 0RF Continued albuterol sulfate 90 mcg/actuation HFA aerosol inhaler 2 puff inhalation Q6H PRN (Reason: SOB) metformin 500 mg tablet 500 mg PO DAILY atorvastatin 20 mg tablet 20 mg PO DAILY losartan 25 mg tablet 25 mg PO DAILY sertraline 100 mg tablet 100 mg PO DAILY clopidogrel [Plavix] 75 mg tablet 75 mg PO DAILY ferrous sulfate 325 mg (65 mg iron) tablet,delayed release (DR/EC) 325 mg PO .q48 Qty: 45 3RF Referrals / Follow Up: Kendall Torrez MD [Primary Care Provider] - Within 2 Weeks Disposition Disposition (needs filled in before D/C Order can be placed): Home, Self Care
--- NOTE | 2023-04-10 11:59 | DS.PCM_ITS ---
Providers Date of Admission: 04/08/23 Date of Discharge: 04/10/23 Primary Care Physician: Dr. Kendall Torrez MD Reason For Visit: EXACERBATION OF COPD Diagnosis Discharge Diagnosis (1) Hypoxemia: Status: Acute Code(s): R09.02 - Hypoxemia (2) COPD with acute exacerbation: Status: Chronic Code(s): J44.1 - Chronic obstructive pulmonary disease with (acute) exacerbation (3) Acute bronchitis: Status: Acute Code(s): J20.9 - Acute bronchitis, unspecified Qualifiers: Bronchitis organism: unspecified organism Qualified Code(s): J20.9 - Acute bronchitis, unspecified Plan #Hypoxia due to acute COPD and asthma exacerbation * on 2L of oxygen by nasal canula * breathing treatment with bronchodilators * on IV solumedrol and IV doxycycline. * wbc is 13. * #Probable pneumonia * CXR showed suspected left lower lobe pneumonia. * breathing treatment with bronchodilators * on doxycycline. * #Benign essential hypertension: on losartan #Hyperlipidemia: on statin #TYpe 2 diabetes mellitus: on ISS. Acuhecks ACHS #CAD: s/p stents. on statin. #Histoyr of TIA and CVA; on statin #Depression with anxiety: on sertraline #Osteoarthritis: on tylenol DVT prophylaxis; SCDs. Medications at Discharge Home Medications albuterol sulfate 90 mcg/actuation aerosol inhaler 2 puff inhalation Q6H PRN SOB 02/01/22 atorvastatin 20 mg tablet 20 mg PO DAILY lowers cholesterol 02/01/22 clopidogrel 75 mg tablet (Plavix) 75 mg PO DAILY blood thinn 02/01/22 losartan 25 mg tablet 25 mg PO DAILY lowers cholesterol 02/01/22 metformin 500 mg tablet 500 mg PO DAILY diabtees 02/01/22 sertraline 100 mg tablet 100 mg PO DAILY depression 02/01/22 ferrous sulfate 325 mg (65 mg iron) tablet,delayed release 325 mg PO .q48 #45 tabs 02/26/23 levofloxacin 500 mg tablet 500 mg PO DAILY #5 tabs 04/10/23 prednisone 20 mg tablet 40 mg (2 x 20 mg) PO DAILY #10 tabs 04/10/23 Hospital Course Operations None Procedures None Summary of Care Provided Minutes Spent on Discharge: 55 Hospital Course: Patient is a 77-year-old female with an extensive past medical history as outlined. She was admitted through the ED on 04/08/2023 with a complaint of shortness of breath. His symptoms had began about 4 days prior to admission and had gradually worsened. He had assisted runny nose and sore throat. She admitted to wheezing and increased frequency of cough. She had been using her albuterol inhaler more frequently than usual. Her cough was productive of greenish sputum. She denied any fever or chills, nausea vomiting or any other symptoms. Patient still continues to smoke. She was admitted and managed for acute exacerbation of COPD with asthma overlap. Chest x-ray showed left upper lobe infiltrate consistent with pneumonia. Her WBC was also elevated. She was therefore admitted and managed for acute hypoxic respiratory sufficiency due to COPD exacerbation as well as probable pneumonia. She was started on IV doxycycline, IV Solu-Medrol and breathing treatments with bronchodilators. Her shortness of breath gradually improved and she was weaned off of oxygen. She felt much better. COVID and flu panel were negative and sputum cultures was also negative. He was discharged home on 04/10/2023. Her walking pulse ox showed that she did not require any oxygen. She was discharged on p.o. doxycycline for 5 days as well as p.o. prednisone 40 mg daily for 5 days. She is follow-up with her PCP within 1 to 2 weeks and counseled to quit smoking. Patient seen and examined prior to discharge. She had no complaints and had an uneventful night. Review of systems otherwise negative. Labs and vitals r eviewed. Home medication reviewed and reconciled. Physical Exam Const alert, oriented x3, no apparent distress and average body habitus General Appearance: cooperative and comfortable HEENT normocephalic, head/scalp atraumatic, hearing grossly normal bilaterally, moist oral mucous membranes and oropharynx normal Eyes PERRL, EOMs intact bilaterally and conjunctivae normal Neck no lymphadenopathy, supple and no JVD Lymph Lymphatic: no lymphadenopathy noted and no lymphedema noted Resp normal respiratory effort, no retractions, no use of accessory muscles and clear to auscultation bilaterally Resp Narrative: on room air Cardio regular rate, regular rhythm, S1 normal heart sound, S2 normal heart sound and no murmurs GI normal to inspection, nondistended, normoactive bowel sounds, soft to palpation, non-tender and non-distended Extremity normal to inspection, full ROM, normal capillary refill, no clubbing, cyanosis or edema and no calf tenderness General Extremity: no tenderness to palpation of joints or extremities Skin General Skin Exam: no breakdown Neuro oriented x3, CN's II-XII intact bilaterally, moves all extremities, no focal motor deficits, no sensory deficits noted and deep tendon reflexes 2+ bilaterally Sensorium / Orientation: awake, alert, oriented to person, oriented to place and oriented to time Speech: speech normal Motor Exam: strength 5/5 throughout and general weakness Psych thought process normal, cooperative and affect normal Appearance: appropriate Medical Records Data Medical Nutrition Assessment Dietitian: Malnutrition Criteria Met Start: 04/08/23 12:20 Freq: Status: Active Protocol: Document 04/08/23 12:20 SLA (Rec: 04/08/23 12:20 SLA Desktop) Nutrition Malnutrition Evidence of Malnutrition Exists Yes Malnutrition (severe): Acute Illness/Injury Evidenced By Suboptimal Energy Intake ( Severe),Weight Loss (Severe) Clinical Problem Altered Nutrient-Related Laboratory Values Etiology related to diabetes and steroid administration Signs/Symptoms as evidenced by gluc 202 Status Active Problem Acute Disease or Injury Related Malnutrition Etiology related to inadequate energy intake Signs/Symptoms as evidenced by po intake <75% of est nutritional needs, 6.8 % unintended wt loss x past 5- 6 wks and pt appears to have fat/muscle loss in orbitals/ temporals, clavicles, arms. Status Active Problem Recommendation Dietitian Recommendations/Changes Will liberalize diet to regular d/t signs/symptoms of malnutrition Continue Glucerna shake 4x/day w/ medpass for increased nutrition if consumed. Weight / BMI Weight Weight: 112 lb 6.972 oz Body Mass Index (BMI) 19.9 ABG / Lab / Microbiology Data 04/10/23 06:40 04/10/23 06:40 Laboratory: Laboratory Results - last 24 hr 04/09/23 16:27: POC Glucose 181 H 04/09/23 21:39: POC Glucose 142 H 04/10/23 04:19: POC Glucose 155 H 04/10/23 06:40: WBC 11.2 H, RBC 3.27 L, Hgb 9.9 L, Hct 30.0 L, MCV 91.7, MCH 30.3, MCHC 33.0, RDW Std Deviation 44.3 H, RDW Coeff of Ana Maria 13.0, Plt Count 343, MPV 9.0, Immature Gran % (Auto) 1.200 H, Neut % (Auto) 76.7 H, Lymph % (Auto) 12.6 L, [place] % (Auto) 9.4, Eos % (Auto) 0.0, Baso % (Auto) 0.1, Absolute Neuts (auto) 8.6 H, Absolute Lymphs (auto) 1.41, Nucleated RBC % 0, Sodium 134 L, Potassium 4.3, Chloride 100, Carbon Dioxide 28.0, Anion Gap 6, BUN 21 H, Creatinine 0.72, Estim Creat Clear Calc 38.53, Est GFR (MDRD) Af Amer 102, Est GFR (MDRD) Non-Af 84, BUN/Creatinine Ratio 29.3 H, Glucose 141 H, Calcium 8.8 Microbiology: Microbiology 04/09/23 19:50 Mucosa - Nasopharyngeal Respiratory Panel (PCR) - Final 04/07/23 23:20 Nasal Secretion SARS-CoV-2 & FLU Antigen (Rapid) - Final D/C Instructions Discharge Diet: Low fat / Low cholesterol Discharge Activity: Return to Normal Activity Weight Bearing Status: Weight bearing as tolerated Call your doctor if you observe: Fever of 101 or Higher, Shortness of breath, Dizziness, Swelling in the ankles and Chest pain Meaningful Use Info Meaningful Use Diagnoses (Choose all that apply): None applicable Discharge Plan Admission Admit Date/Time: 04/08/23 01:24 Primary Reason for Your Visit: COPD exacerbation Attending Provider: Annmarie Graham Primary Care Provider: Kendall Torrez Consulting Providers: Matty Harris Instructions Patient Instructions: Asthma and COPD Additional Instructions / Restrictions: use oxygen 2L for shortness of breath as needed. Counseled to quit smoking Discharge Orders/Prescriptions Prescriptions: New levofloxacin 500 mg tablet 500 mg PO DAILY Qty: 5 0RF prednisone 20 mg tablet 40 mg PO DAILY Qty: 10 0RF Continued albuterol sulfate 90 mcg/actuation HFA aerosol inhaler 2 puff inhalation Q6H PRN (Reason: SOB) metformin 500 mg tablet 500 mg PO DAILY atorvastatin 20 mg tablet 20 mg PO DAILY losartan 25 mg tablet 25 mg PO DAILY sertraline 100 mg tablet 100 mg PO DAILY clopidogrel [Plavix] 75 mg tablet 75 mg PO DAILY ferrous sulfate 325 mg (65 mg iron) tablet,delayed release (DR/EC) 325 mg PO .q48 Qty: 45 3RF Referrals / Follow Up: Kendall Torrez MD [Primary Care Provider] - Within 2 Weeks Disposition Disposition (needs filled in before D/C Order can be placed): Home, Self Care Charges/Coding Visit Charges Inpatient E&M: 15919 Disch Hosp >30min
--- NOTE | 2023-04-10 12:26 | PHA.DC_ITS ---
Pharmacy [facility] Service has performed discharge medication reconciliation and counseling for this patient. 1. LEVOFLOXACIN 500MG PO DAILY X5 DAYS The patient's discharge medication list was reviewed for discrepancies and discrepancies were resolved. The patient was counseled on the following discharge medications and changes in medications for homegoing were reviewed. The Reason for Use, instructions for use, and potential side effects were reviewed for all new medications. The patient's questions regarding all of their medications were answered. The patient was able to verbally demonstrate an understanding of their discharge medications. Patient counseled by visual merchandising managerCarlos Alberto. Medications at Discharge Home Medications albuterol sulfate 90 mcg/actuation aerosol inhaler 2 puff inhalation Q6H PRN SOB 02/01/22 atorvastatin 20 mg tablet 20 mg PO DAILY lowers cholesterol 02/01/22 clopidogrel 75 mg tablet (Plavix) 75 mg PO DAILY blood thinn 02/01/22 losartan 25 mg tablet 25 mg PO DAILY lowers cholesterol 02/01/22 metformin 500 mg tablet 500 mg PO DAILY diabtees 02/01/22 sertraline 100 mg tablet 100 mg PO DAILY depression 02/01/22 ferrous sulfate 325 mg (65 mg iron) tablet,delayed release 325 mg PO .q48 #45 tabs 02/26/23 levofloxacin 500 mg tablet 500 mg PO DAILY #5 tabs 04/10/23
[2023-04-10 12:35] VITALS: BP 135/69; PULSE 77; RESP 20; TEMP 36.7; O2SAT 91
--- NOTE | 2023-04-10 14:30 | CASEMGMT ---
Pt. has order for discharge. RN CM in to pt. room to discuss needs at discharge and to speak with pt's daughter as RN DAVID was informed she is currently in the room. Pt. and her daughter both deny having any needs or questions for RN CM concerning discharge. Pt. and daughter both deny having any further questions or concerns at this time. I informed them that SW will be in soon to discuss ADs.
--- NOTE | 2023-04-10 14:55 | CASEMGMT ---
Social Work SW met with pt and assisted pt in completing a living will and health care power of director of product marketing naming her daughter Griselda Trivedi. Originals given to pt and copies placed on pt chart. RAHUL Barry
== END 2023-04-10 15:02 | disposition home or self-care (01) | DRG 190 ==
LOC: ED 04-08 01:15 → MS3 04-08 01:34
PROVIDERS: Admitting Provider Internal Medicine; Emergency Provider Emergency Medicine; PCP Family Medicine; Visit Provider Student in an Organized Health Care Education/Training Program
DX: J44.1 Chronic obstructive pulmonary disease with (acute) exacerbation (principal); J18.9 Pneumonia, unspecified organism; E43 Unspecified severe protein-calorie malnutrition; G45.9 Transient cerebral ischemic attack, unspecified; J45.901 Unspecified asthma with (acute) exacerbation; Z68.1 Body mass index [BMI] 19.9 or less, adult; E11.9 Type 2 diabetes mellitus without complications; J44.0 Chronic obstructive pulmonary disease with (acute) lower respiratory infection; I10 Essential (primary) hypertension; F41.8 Other specified anxiety disorders; M19.90 Unspecified osteoarthritis, unspecified site; F17.210 Nicotine dependence, cigarettes, uncomplicated; J20.9 Acute bronchitis, unspecified; I25.10 Atherosclerotic heart disease of native coronary artery without angina pectoris; E78.5 Hyperlipidemia, unspecified; Z79.02 Long term (current) use of antithrombotics/antiplatelets; Z79.84 Long term (current) use of oral hypoglycemic drugs; Z86.73 Personal history of transient ischemic attack (TIA), and cerebral infarction without residual deficits
CPT/HCPCS: 36415; 71046; 80048; 82962; 84439; 84443; 84481; 84484; 85025; 87428; 87633; 93005; 94640; 94668; 97162; 97802; 99285; 99406; J7030; J7050; A4216

== ENCOUNTER 2023-06-29 14:50 | Emergency (ER) | payer MEDICARE, OTHER, SELFPAY ==
[2023-06-29 14:51] VITALS: BP 142/68; PULSE 103; RESP 18; TEMP 35.8; O2SAT 95; BMI 20.2
[2023-06-29] MEDS: Ipratropium/Albuterol Sulfate 3 ML AMPUL.NEB INHALATION (15:20)
[2023-06-29] MEDS: Albuterol 2.5 MG/3 ML VIAL.NEB. INHALATION ×3 (15:20)
[2023-06-29 15:21] VITALS: PULSE 82; RESP 18
[2023-06-29 15:23] LABS: Absolute Neutrophil Count 3.9 X10^3/uL (2.0-7.7); Basophil# 0.08 X10^3/uL; Basophil% 1.1 % (0-1); Eosinophil# 0.15 X10^3/uL; Eosinophils% 2.1 % (0-5); Hematocrit 37.9 % (37-47); Hemoglobin 12.3 g/dL (12.0-15.0); Lymphocyte % 31.2 % (19-41); Mean Corp Hgb Conc 32.5 g/dL (32-36); Mean Corpuscular Hgb 29.8 pg (27.0-32.0); Mean Corpuscular Volume 91.8 fL (81-99); Mean Platelet Vol. 8.6 fl (6.2-12.0); Monocyte# 0.67 X10^3/uL; Monocyte% 9.5 % (0-10); NRBC Flagged by Analyzer 0 % (0-5); Neutrophil # 3.94 X10^3/uL (2.7-7.7); Platelet Count 258 K/mm3 (150-450); RBC Distribution Width CV 13.9 % (11.6-14.6); RBC Distribution Width SD 46.9 fl (35.1-43.9); Red Blood Count 4.13 M/mm3 (4.2-5.4); White Blood Count 7.1 K/mm3 (4.4-11.0)
[2023-06-29 15:41] LABS: Anion Gap 3 (5-15); BUN 20 mg/dL (7-18); BUN/Creat Ratio 20.4 RATIO (10-20); Calcium,Total 8.8 mg/dL (8.5-10.1); Chloride 105 mmol/L (98-107); Creatinine, Serum 0.98 mg/dL (0.55-1.02); EST Glomerular Filtration Rate 58 mL/min (>60); Est Glom Filt Rate - Afr Amer 71 mL/min (>60); Estimated Creatinine Clearance 39.94 ml/min; Glucose 206 mg/dL (74-106); Sodium Level 138 mmol/L (136-145)
--- OUTSIDE RECORDS SUMMARY | 2023-06-29 15:41 | XMS RPT_ITS | CCD ---
Author Name Unknown Address [address] [place] [address] Organization [facility] Care Team Providers Care Sales Associate Cashier Name Role Phone Maryan Torrez MD Primary Care Provider [phone] MARYAN TORREZ Primary Care Unavailable MARYAN TORREZ Attending Unavailable MARYAN TORREZ Primary Care Unavailable MARYAN TORREZ Referring Unavailable LIBAN, MARYAN Ballesteros Primary Care Unavailable MARYAN TORREZ Attending Unavailable MARYAN TORREZ Primary Care Unavailable MARYAN TORREZ Referring Unavailable LIBAN, MARYAN Ballesteros Primary Care Unavailable MARYAN TORREZ Referring Unavailable LIBAN, MARYAN Ballesteros Primary Care Unavailable MARYAN TORREZ Referring Unavailable LIBAN, MARYAN Ballesteros Primary Care Unavailable GRETTA MG Attending Unavailable LIBAN, MARYAN Ballesteros Primary Care Unavailable LIBAN, MARYAN Ballesteros Referring Unavailable Kavon ROSE Referring Unavailable LIBAN, MARYAN Ballesteros Primary Care Unavailable LIBAN, MARYAN Ballesteros Primary Care Unavailable LIBAN, MARYAN Ballesteros Referring Unavailable HENRIETTA GRAHAM Attending Unavailable MARYAN TORREZ Primary Care Unavailable MARYAN TORREZ Attending Unavailable MARYAN TORREZ Primary Care Unavailable LIBAN, MARYAN Ballesteros Primary Care Unavailable MARYAN TORREZ Attending Unavailable MARYAN TORREZ Primary Care Unavailable MARYAN TORREZ Referring Unavailable HENRIETTA GRAHAM Attending Unavailable LIBAN, MARYAN Ballesteros Primary Care Unavailable HENRIETTA GRAHAM Attending Unavailable MARYAN TORREZ Primary Care Unavailable MARYAN TORREZ Attending Unavailable MARYAN TORREZ Primary Care Unavailable Maryan Torrez MD Primary Care Provider Allergies Allergy Classification Reported Allergen(s) Allergy Type Date of Onset Reaction(s) Facility (20 sources) oxyCODONE; Translations: [OXYCODONE] Drug Allergy 05-28-2011 [facility] (20 sources) umeclidinium; Translations: [UMECLIDINIUM] Drug Allergy 05-16-2016 GI Upset [facility] Work Phone: Medications Current Medications Medication Drug Class(es) Dates Sig (Normalized) Sig (Original) albuterol 0.83 mg/ml inhalation solution (20 sources) beta2-Adrenergic Agonist Start: 04-12-2023 End: 10-09-2023 take 2.5 mg by inhalation every four hours as needed for chronic obstructive pulmonary disease and chronic obstructive pulmonary disease albuterol (PROVENTIL) 2.5 mg /3 mL (0.083 %) nebulizer solution Indications: Chronic obstructive pulmonary disease, unspecified COPD type (HCC) Use 3 mL via nebulizer every 4 hours as needed for wheezing/shortness of breath. Use over 5-15minutes. 120 mL 5 04/12/2023 10/09/2023 Active Completed/Discontinued Medications Medication Drug Class(es) Dates Sig (Normalized) Sig (Original) 30 actuat aclidinium bromide 0.4 mg/actuat dry powder inhaler (3 sources) Start: 05-16-2016 End: 11-21-2021 take 1 dose by inhalation twice daily aclidinium bromide (TUDORZA PRESSAIR) 400 mcg/actuation aepb Indications: chronic obstructive pulmonary disease with bronchospasms Inhale 1 Inhalation as instructed twice daily. Indications: CHRONIC OBSTRUCTIVE PULMONARY DISEASE WITH BRONCHOSPASMS 1 Each 05/16/2016 11/21/2021 Discontinued (Other) Problems Active Problems Problem Classification Problem Date Documented Da te Episodic/Chronic Abdominal pain (5 sources) Left lower quadrant pain; Translations: [Left lower quadrant pain] Onset: 04-26-2023 04-12-2023 Episodic Chronic obstructive pulmonary disease and bronchiectasis (20 sources) Moderate chronic obstructive pulmonary disease; Translations: [Chronic obstructive pulmonary disease, unspecified] Onset: 09-05-2016 09-05-2016 Chronic Deficiency and other anemia (1 source) Iron deficiency anemia; Translations: [Iron deficiency anemia, unspecified] 03-11-2023 Episodic Deficiency and other anemia (1 source) Anemia; Translations: [Anemia, unspecified] 04-12-2023 Episodic Deficiency and other anemia (1 source) Iron deficiency anemia, unspecified; Translations: [Iron deficiency anemia, unspecified iron deficiency anemia type] Onset: 04-12-2023 Episodic Diabetes mellitus without complication (20 sources) Type 2 diabetes mellitus without complication; Translations: [Type 2 diabetes mellitus without complications] Onset: 06-19-2011 02-06-2016 Chronic Diseases of white blood cells (2 sources) Leukocytosis; Translations: [Elevated white blood cell count, unspecified] Onset: 06-07-2023 04-22-2023 Chronic Disorders of lipid metabolism (20 sources) Mixed hyperlipidemia; Translations: [Mixed hyperlipidemia] Onset: 04-17-2017 04-17-2017 Chronic Essential hypertension (20 sources) Hypertensive disorder; Translations: [Essential (primary) hypertension] Onset: 03-15-2014 09-06-2015 Chronic Genitourinary symptoms and ill-defined conditions (1 source) Increased frequency of urination; Translations: [Frequency of micturition] Episodic Heart valve disorders (18 sources) Aortic valve regurgitation; Translations: [Nonrheumatic aortic (valve) insufficiency] Onset: 02-09-2022 Chronic Mycoses (1 source) Onychomycosis; Translations: [Tinea unguium] 03-11-2023 Episodic Neoplasms of unspecified nature or uncertain behavior (1 source) Thrombocytosis; Translations: [Thrombocytosis] Onset: 04-18-2023 Chronic Neoplasms of unspecified nature or uncertain behavior (2 sources) Thrombocytosis; Translations: [Thrombocytosis] 04-13-2023 Episodic Other hematologic conditions (1 source) History of anemia; Translations: [Personal history of diseases of the blood and blood-forming organs and certain disorders involving the immune mechanism] 04-18-2023 Episodic Other lower respiratory disease (5 sources) Dyspnea; Translations: [Shortness of breath] Episodic Other nutritional; endocrine; and metabolic disorders (1 source) Abnormal weight loss; Translations: [Abnormal weight loss] 04-18-2023 Episodic Other nutritional; endocrine; and metabolic disorders (1 source) Abnormal weight loss; Translations: [Abnormal weight loss] Onset: 04-18-2023 Episodic Other screening for suspected conditions (not mental disorders or infectious disease) (1 source) Pulmonary function studies abnormal; Translations: [Abnormal results of pulmonary function studies] Episodic Other skin disorders (1 source) Mass of upper limb; Translations: [Localized swelling, mass and lump, left upper limb] 02-21-2023 Episodic Other upper respiratory disease (1 source) Nasal discharge; Translations: [Other specified disorders of nose and nasal sinuses] Episodic Other upper respiratory infections (1 source) Chronic sinusitis; Translations: [Chronic sinusitis, unspecified] Chronic Pneumonia (except that caused by tuberculosis or sexually transmitted disease) (5 sources) Bacterial pneumonia; Translations: [Unspecified bacterial pneumonia] Onset: 04-18-2023 03-11-2023 Episodic Residual codes; unclassified (1 source) Tobacco use and exposure - finding; Translations: [Tobacco use] 04-12-2023 Episodic Substance-related disorders (20 sources) Tobacco user; Translations: [Nicotine dependence, unspecified, uncomplicated] Onset: 09-06-2015 09-06-2015 Chronic Transient cerebral ischemia (20 sources) Transient cerebral ischemia; Translations: [Transient cerebral ischemic attack, unspecified] Onset: 03-01-2014 Chronic Unclassified (2 sources) NO SHOW 02-28-2023 Urinary tract infections (2 sources) Urinary tract infectious disease; Translations: [Urinary tract infection, site not specified] Episodic Past or Other Problems Problem Classification Problem Date Documented Date Episodic/Chronic Other diseases of kidney and ureters (20 sources) Cyst of kidney; Translations: [Cyst of kidney, acquired] Onset: 06-28-2020 06-28-2020 Episodic Other skin disorders (1 source) Localized swelling, mass and lump, left upper limb; Translations: [Arm mass, left] Onset: 02-21-2023 Episodic Other skin disorders (1 source) Nonscarring hair loss, unspecified; Translations: [Hair loss] Onset: 12-31-2022 Episodic Residual codes; unclassified (14 sources) History of cardiac catheterization; Translations: [Other specified postprocedural states] Onset: 12-27-2022 12-27-2022 Episodic Results Test Name Value Interpretation Reference Range Facil ity Vital Signs Date Time Vital Sign Value Performing Clinician Faci lity 04-12-2023 11:16-0500 Body height 158.8 cm Maryan Torrez MD Work Phone: [facility] 04-12-2023 11:16-050 Body temperature 97.39 [degF] Maryan Torrez MD Work Phone: [facility] 04-12-2023 11:16-0500 Body weight 50.71 kg Maryan Torrez MD Work Phone: [facility] 04-12-2023 11:16-0500 Diastolic blood pressure 50 mm[Hg] Maryan Torrez MD Work Phone: [facility] 04-12-2023 11:16-0500 Heart rate 86 /min Maryan Torrez MD Work Phone: [facility] 04-12-2023 11:16-0500 SaO2% (BldA) [Mass fraction] 93 % Maryan Torrez MD Work Phone: [facility] 04-12-2023 11:16-0500 Systolic blood pressure 110 mm[Hg] Maryan Torrez MD Work Phone: [facility] 02-21-2023 18:28-0400 Body weight 51.71 kg Henrietta Graham HEAD TEACHER.USED CAR MANAGER Work Phone: [facility] 02-21-2023 18:28-0400 Diastolic blood pressure 58 mm[Hg] Henrietta Graham HEAD TEACHER.USED CAR MANAGER Work Phone: [facility] 02-21-2023 18:28-0400 Heart rate 84 /min Henrietta Santos HEAD TEACHER.USED CAR MANAGER Work Phone: [facility] 02-21-2023 18:28-0400 Respiratory rate 14 /min Henrietta Graham HEAD TEACHER.USED CAR MANAGER Work Phone: [facility] 02-21-2023 18:28-0400 Systolic blood pressure 112 mm[Hg] Henrietta Graham HEAD TEACHER.USED CAR MANAGER Work Phone: [facility] 09-13-2022 15:13-0400 Body weight 53.52 kg Henrietta Graham HEAD TEACHER.USED CAR MANAGER Work Phone: [facility] 09-13-2022 15:13-0400 Diastolic blood pressure 66 mm[Hg] Henrietta Santos HEAD TEACHER.USED CAR MANAGER Work Phone: [facility] 09-13-2022 15:13-0400 Heart rate 82 /min Henrietta Santos HEAD TEACHER.USED CAR MANAGER Work Phone: [facility] 09-13-2022 15:13-0400 Respiratory rate 16 /min Henrietta Graham HEAD TEACHER.USED CAR MANAGER Work Phone: [facility] 09-13-2022 15:13-0400 Systolic blood pressure 128 mm[Hg] Henrietta Graham HEAD TEACHER.USED CAR MANAGER Work Phone: [facility] 08-23-2022 14:24-0400 Body weight 52.62 kg Henrietta Graham HEAD TEACHER.USED CAR MANAGER Work Phone: [facility] 08-23-2022 14:24-0400 Diastolic blood pressure 76 mm[Hg] Henrietta Graham HEAD TEACHER.USED CAR MANAGER Work Phone: [facility] 08-23-2022 14:24-0400 Heart rate 100 /min Henrietta Graham HEAD TEACHER.USED CAR MANAGER Work Phone: [facility] 08-23-2022 14:24-0400 Respiratory rate 18 /min Henrietta Graham HEAD TEACHER.USED CAR MANAGER Work Phone: [facility] 08-23-2022 14:24-0400 Systolic blood pressure 138 mm[Hg] Henrietta Graham HEAD TEACHER.USED CAR MANAGER Work Phone: [facility] 11-21-2021 14:38-0400 Body weight 52.16 kg Gretta Mg HEAD TEACHER.USED CAR MANAGER Work Phone: [facility] 11-21-2021 14:38-0400 Diastolic blood pressure 72 mm[Hg] Gretta Ortaagen HEAD TEACHER.USED CAR MANAGER Work Phone: [facility] 11-21-2021 14:38-0400 Heart rate 70 /min Gretta Haagen HEAD TEACHER.USED CAR MANAGER Work Phone: [facility] 11-21-2021 14:38-0400 Respiratory rate 18 /min Gretta Ortaagen HEAD TEACHER.USED CAR MANAGER Work Phone: [facility] 11-21-2021 14:38-0400 SaO2% (BldA) [Mass fraction] 95 % Gretta Mg HEAD TEACHER.USED CAR MANAGER Work Phone: [facility] 11-21-2021 14:38-0400 Systolic blood pressure 130 mm[Hg] Gretta Mg APRN.USED CAR MANAGER Work Phone: [facility] Encounters Encounter Date Encounter Type Care Provider Facility Start: 06-29-2023 End: 06-29-2023 ambulatory Maryan Torrez MD Work Phone: [facility] Procedures Date Procedure Procedure Detail Performing Clinician Start: 04-26-2023 Ct abdomen & pelvis w/contrast material Maryan Torrez MD Work Phone: Start: 09-13-2022 Urnls dip stick/tabl et rgnt auto w/o microscopy Henrietta Graham HEAD TEACHER.USED CAR MANAGER Work Phone: Start: 08-23-2022 Urnls dip stick/tabl et rgnt auto w/o microscopy Henrietta Graham HEAD TEACHER.USED CAR MANAGER Work Phone: Start: 11-21-2021 Adult depression scr eening assessment Gretta Mg HEAD TEACHER.USED CAR MANAGER Work Phone: Start: 11-20-2021 Radiologic exam ches t 2 views Gretta Mg HEAD TEACHER.USED CAR MANAGER Work Phone: Start: 09-26-2020 Adult depression scr eening assessment Ragini Bañuelos MA Start: 01-09-2019 Mammography Ragini marie MA Plan of Treatment Date Care Activity Detail Author Start: 06-29-2024 Annual PCP Team Direct Care Professional milka Disease Visit Annual PCP Team Chronic Disease Visit [facility] Start: 04-18-2024 Annual PCP Team Direct Care Professional milka Disease Visit Annual PCP Team Chronic Disease Visit [facility] Start: 04-12-2024 Annual PCP Team Direct Care Professional milka Disease Visit Annual PCP Team Chronic Disease Visit [facility] Start: 04-12-2024 BP Controlled (<130/80) BP Controlle d (<130/80) [facility] Start: 03-11-2024 Annual PCP Team Direct Care Professional milka Disease Visit Annual PCP Team Chronic Disease Visit [facility] Start: 02-29-2024 Annual PCP Team Direct Care Professional milka Disease Visit Annual PCP Team Chronic Disease Visit [facility] Start: 02-22-2024 Annual PCP Team Direct Care Professional milka Disease Visit Annual PCP Team Chronic Disease Visit [facility] Start: 02-22-2024 BP Controlled (<130/80) BP Controlle d (<130/80) [facility] Start: 01-16-2024 Glaucoma screening Dilated Retinal E xam [facility] Start: 01-16-2024 Hepatitis C antibody , confirmatory test Dilated Retinal Exam [facility] Start: 01-01-2024 Hepatitis B screening Urine Al bumin:Creatinine Ratio [facility] Start: 01-01-2024 Hepatitis B surface antibody level LDL Cholesterol [facility] Start: 12-28-2023 3 comp foot exam completed Diabetic Foot Exam [facility] Start: 12-28-2023 Diabetic foot examination Diabetic F oot Exam [facility] Start: 12-28-2023 Shingrix Vaccine (1 of 2) Penaloza grix Vaccine (1 of 2) [facility] Immunizations Immunization Date Immunization Notes Care Provider Fa shelleyty 12-27-2022 pneumococcal (PCV20) vaccine, 20 valent (PREVNAR 20) Henrietta Graham APRN.USED CAR MANAGER Work Phone: [facility] 01-03-2022 influenza (aIIV4) vaccine, age 65+ yr, quadrivalent, PF (FLUAD QUADRIVALENT) Maryan Torrez MD Work Phone: [facility] 01-03-2022 influenza virus vacc ine, unspecified formulation Henrietta Graham APRN.USED CAR MANAGER Work Phone: [facility] 11-25-2021 COVID-19 original vaccine, full dose, monovalent (MODERNA) Maryan Torrez MD Work Phone: [facility] 03-31-2021 COVID-19 original vaccine, full dose, monovalent (MODERNA) Maryan Torrez MD Work Phone: [facility] 01-25-2021 influenza (aIIV4) vaccine, age 65+ yr, quadrivalent, PF (FLUAD QUADRIVALENT) Maryan Torrez MD Work Phone: [facility] 07-27-2020 COVID-19 original vaccine, full dose, monovalent (MODERNA) Maryan Torrez MD Work Phone: [facility] 06-30-2020 COVID-19 original vaccine, full dose, monovalent (MODERNA) Maryan Torrez MD Work Phone: [facility] 02-04-2020 unknown vaccine or immune globulin Maryan Torrez MD Work Phone: [facility] 01-30-2019 Seasonal trivalent influenza vaccine, adjuvanted, preservative free Maryan Torrez MD Work Phone: [facility] 03-13-2018 influenza virus vacc ine, unspecified formulation Ragini Bañuelos MA [facility] 02-25-2018 Seasonal trivalent influenza vaccine, adjuvanted, preservative free Maryan Torrez MD Work Phone: [facility] 04-17-2017 influenza, high dose seasonal, preservative-free Ragini Bañuelos MA [facility] Work Phone: 05-16-2016 pneumococcal polysaccharide vaccine, 23 valent Ragini Bañuelos MA [facility] Work Phone: 03-31-2016 influenza, seasonal, injectable, preservative free Maryan Torrez MD Work Phone: [facility] 02-22-2016 influenza, seasonal, injectable Ragini Bañuelos MA [facility] Work Phone: 01-26-2015 influenza, high dose seasonal, preservative-free Maryan Torrez MD Work Phone: [facility] Payers Date Payer Category Payer Medicare [id number] 2019 Unknown MMO MMO MEDICARE SUPPLEMENT [id number] 2019-Present [phone] [address] [place] [address] Indemnity [id number] 2019 Unknown MMO MMO MEDICARE SUPPLEMENT [id number] 2019-Present [phone] [address] [place] [address] Indemnity [id number] 2011 Medicare MEDICARE MEDICAR E A AND B [id number] 2011-Present [phone] [place] [address] Medicare [id number] 2011 Medicare MEDICARE MEDICAR E A AND B [id number] 2011-Present [phone] [place] [address] Medicare [id number] 2011 Medicare [id number] Social History Date Type Detail Facility Start: 06-27-2017 End: 06-13-2022 Tobacco smoking status NHIS Smokes tobacco daily [facility] History of tobacco use Cigarette Smoker C [facility] Start: 04-28-2021 End: 04-12-2023 Alcohol intake Current drinker of alcohol (finding) [facility] Start: 03-21-2020 End: 04-28-2021 History SDOH Alcohol Frequency 1 [facility] Start: 03-21-2020 History SDOH Social Connections Phone 5 [facility] Start: 03-21-2020 End: 04-28-2021 History SDOH Social Connections Get Together 2 [facility] Start: 03-21-2020 History SDOH Social Connections Living 4 [facility] Start: 03-21-2020 History SDOH Physica l Activity DPW 7 [facility] Start: 03-21-2020 History SDOH Physica l Activity MPS 15 [facility] Start: 03-21-2020 Education 12 [facility] Start: 1945 Sex Assigned At Not on file C [facility] Start: 06-27-2017 End: 09-13-2022 Cigarettes smoked current (pack per day) - Reported 0.3 [facility] Start: 06-27-2017 End: 06-13-2022 Tobacco use and exposure Smokeless tobacco non-user [facility] Start: 06-13-2022 End: 09-13-2022 Tobacco use panel [facility] Adult Depression Scr eening Assessment 0 [facility] Do you belong to any clubs or organizations such as christianity groups, unions, fraternal or athletic groups, or school groups? No [facility] Are you now , , , , never or living with a partner? [facility] How often to you hav e a drink containing alcohol? Never [facility] How hard is it for y ou to pay for the very basics like food, housing, medical care, and heating Not very hard [facility] (I/We) worried wheth er (my/our) food would run out before (I/we) got money to buy more. Never true [facility] Are you now , , , , never or living with a partner? Refused [facility] (I/We) worried wheth er (my/our) food would run out before (I/we) got money to buy more. DK or Refused [facility] Medical Equipment Procedure Code Equipment Code Equipment Origin al Text Equipment Identifier Dates Start: 06-16-2021 End: 09-12-2022 Clinical Notes 09-05-2016 to 06-29-2023 Maryan Torrez MD - 06/29/2023 9:07 AM Maryan Delcid MD - 06/29/2023 8:02 AM Maryan Delcid MD - 06/29/2023 9:07 AM ESTTelephone Encounter - Genet Pittman - 06/25/2023 11:47 AM EST Note Date & Type Note Facility 06-29-2023 History of Presen t illness Narrative Patient presents with: Acute Visit HPI:This Team Access Model visit is a virtual encounter. It required patient-provider interaction for the medical decision making as documented below. Patient has elected to have a visit through distance medicine I have communicated my name and active licensure. The patient's identity and physical location were verified at the time of this visit. Either the patient or their legal billing representative has been informed of the risks and benefits of -- and alternatives to -- treatment through a remote evaluation and consents to proceed with the evaluation remotely. See below. Has followed most recently with Dr Sullivan, pulmonary . Note was copied and pasted, without alteration from 04/18: Seen recently following second hospitalization. While in the hospital was treated for copd/exacerbation-pneumonia. We discussed repeating a chest xray after treatment. We adjusted her bp meds as well. While here she apparently had had some ongoing intermittent llq pain. She had dropped weight while ill and had a drop in hb while in the hospital. We followed her labs and ordered a ct of her abd which is pending for next week. We discussed that I believe she may need to have endoscopy performed, however, I would like to do a ct first and stabilize her pulmonary issues before they see her. She was found to have an improvement in her cbc except for a very minimal thrombocytosis. A repeat platelet count has been ordered in a month. She was to repeat her xray before her next follow up in one month. If infiltrate was persistent at that time then further work up would be indicated. Has surgery appt scheduled. Discussed increasing appetite Pain is about the same. No worse. Cough is stable. Bp is stable. Requests repeat tsh. Will check cbc at some time and get prealbumin and xray. MEDICATIONS: Current Outpatient Medications Medication Sig atorvastatin (LIPITOR) 20 mg tablet Take 1 tablet by mouth daily at bedtime. sertraline (ZOLOFT) 100 mg tablet Take 1.5 tablets by mouth once daily. ferrous sulfate 325 mg (65 mg iron) tablet Take 1 tablet by mouth every other day. blood sugar diagnostic (BLOOD GLUCOSE TEST) test strip Test blood sugar(s) 1-2 times daily. Dx: Type 2 DM - Controlled E11.9 Insulin: No VERIO RESTASIS 0.05 % ophthalmic emulsion nicotine (NICODERM) 14 mg/24 hr Apply 1 Patch as directed every 24 hours. No smoking with patch. albuterol (PROVENTIL) 2.5 mg /3 mL (0.083 %) nebulizer solution Use 3 mL via nebulizer every 4 hours as needed for wheezing/shortness of breath. Use over 5-15minutes. metFORMIN (GLUCOPHAGE) 500 mg tablet Take 1 tablet by mouth daily with breakfast. clopidogrel (PLAVIX) 75 mg tablet Take 1 tablet by mouth once daily. Lancets lancets Test blood sugar(s) 1-2 times daily. Dx: Type 2 DM - Controlled E11.9 Insulin: No albuterol HFA (VENTOLIN HFA) 90 mcg/actuation inhaler inhale 2 puffs as directed every 4 hours if needed for wheezing or shortness of breath Blood-Glucose Meter (BLOOD GLUCOSE MONITORING) monitoring kit Test blood sugar(s) 1-2 times daily. Dx: Type 2 DM - Controlled E11.9 Insulin: No iv contrast (will be provided with radiology test) CT Urogram WO/W Inject, intravenously, once for 1 dose.No IV access, insert saline lock prior to the beginning of sedation, infusion, injection of imaging exam. Discontinue saline lock post exam. If Pt. has a central line or IVAD, may access for administration according to line specific nursing protocol. Once exam is complete flush line and de-access according to line specific nursing protocol in the CT contrast administration guidelines link. Current Facility-Administered Medications Medication Dose Route Frequency perflutren lipid microspheres 1.3 mL in NaCl (PF) 0.9% 10 mL injection (DEFINITY) INTRAVENOUS DIRECTED PRN sodium chloride 0.9 % (flush) 10 mL (BD POSIFLUSH) 10 mL INTRAVENOUS DIRECTED PRN ALLERGIES: ALLERGIES Allergen Reactions Incruse Ellipta [Um* GI Upset nausea Oxycodone Rash (percocet) PAST MEDICAL HISTORY Diagnosis Date Acute bronchitis Anxiety Chronic cough COPD (chronic obstructive pulmonary disease) (HCC) moderate, PFT 02/2016 Depression Diabetes mellitus without mention of complication Diabetes mellitus Elevated blood pressure Hypertension Intermittent cerebral ischemia Long-term memory loss Menopause Osteopenia 02/2016 Right wrist fracture TIA (transient ischemic attack) Tobacco use Wheezing PAST SURGICAL HISTORY Procedure Laterality Date APPENDECTOMY incidental DELIVERY ONLY , low transverse EXC CYST/ABERRANT BREAST TISSUE OPEN 1/> LESION OPEN REPAIR OF ROTATOR CUFF ACUTE Rotator cuff repair, L. PAST SURGICAL HISTORY OF benign mass from back TOTAL ABDOMINAL HYSTERECT W/WO RMVL TUBE OVARY Hysterectomy, ERLIN FAMILY HISTORY Problem Relation Age of Onset Coronary Artery Disease Father 70 s/p CABG Diabetes Mother Diabetes Father Cancer Maternal Aunt leukemia Social History Tobacco Use Smoking status: Every Day Packs/day: 0.25 Years: 47.00 Additional pack years: 0.00 Total pack years: 11.75 Types: Cigarettes Smokeless tobacco: Never Substance Use Topics Alcohol use: Yes Comment: rarely Drug use: No Reviewed current medications, allergies, past medical history, surgical history, family history and social history today. REVIEW OF SYSTEMS All other reviewed and negative other than HPI. HEALTH MAINTENANCE: Reviewed health maintenance issues today and recommended the following in detail. RSV Vaccine(1 - 1-dose 60+ series) Never done Advance Directive Discussion due on 05/13/2023 Depression Assessment due on 05/13/2023 VITALS: There were no vitals taken for this visit. Last 4 Encounter Wt Readings: Date: Wt: 04/12/2023 50.7 kg (111 lb 12.8 oz) 02/21/2023 51.7 kg (114 lb) 12/27/2022 54.1 kg (119 lb 3.2 oz) 09/13/2022 53.5 kg (118 lb) PHYSICAL EXAMINATION: Patient never checked in. Attempted to call and never answered. Left message to reschedule. Patient presents with: Acute Visit HPI:This Team Access Model visit is a virtual encounter. It required patient-provider interaction for the medical decision making as documented below. Patient has elected to have a visit through distance medicine I have communicated my name and active licensure. The patient's identity and physical location were verified at the time of this visit. Either the patient or their legal billing representative has been informed of the risks and benefits of -- and alternatives to -- treatment through a remote evaluation and consents to proceed with the evaluation remotely. See below. Has followed most recently with Dr Sullivan, pulmonary . Note was copied and pasted, without alteration from 04/18: Seen recently following second hospitalization. While in the hospital was treated for copd/exacerbation-pneumonia. We discussed repeating a chest xray after treatment. We adjusted her bp meds as well. While here she apparently had had some ongoing intermittent llq pain. She had dropped weight while ill and had a drop in hb while in the hospital. We followed her labs and ordered a ct of her abd which is pending for next week. We discussed that I believe she may need to have endoscopy performed, however, I would like to do a ct first and stabilize her pulmonary issues before they see her. She was found to have an improvement in her cbc except for a very minimal thrombocytosis. A repeat platelet count has been ordered in a month. She was to repeat her xray before her next follow up in one month. If infiltrate was persistent at that time then further work up would be indicated. Has surgery appt scheduled. Discussed increasing appetite Pain is about the same. No worse. Cough is stable. Bp is stable. Requests repeat tsh. Will check cbc at some time and get prealbumin and xray. MEDICATIONS: Current Outpatient Medications Medication Sig atorvastatin (LIPITOR) 20 mg tablet Take 1 tablet by mouth daily at bedtime. sertraline (ZOLOFT) 100 mg tablet Take 1.5 tablets by mouth once daily. ferrous sulfate 325 mg (65 mg iron) tablet Take 1 tablet by mouth every other day. blood sugar diagnostic (BLOOD GLUCOSE TEST) test strip Test blood sugar(s) 1-2 times daily. Dx: Type 2 DM - Controlled E11.9 Insulin: No VERIO RESTASIS 0.05 % ophthalmic emulsion levoFLOXacin (LEVAQUIN) 500 mg tablet nicotine (NICODERM) 14 mg/24 hr Apply 1 Patch as directed every 24 hours. No smoking with patch. albuterol (PROVENTIL) 2.5 mg /3 mL (0.083 %) nebulizer solution Use 3 mL via nebulizer every 4 hours as needed for wheezing/shortness of breath. Use over 5-15minutes. metFORMIN (GLUCOPHAGE) 500 mg tablet Take 1 tablet by mouth daily with breakfast. clopidogrel (PLAVIX) 75 mg tablet Take 1 tablet by mouth once daily. Lancets lancets Test blood sugar(s) 1-2 times daily. Dx: Type 2 DM - Controlled E11.9 Insulin: No albuterol HFA (VENTOLIN HFA) 90 mcg/actuation inhaler inhale 2 puffs as directed every 4 hours if needed for wheezing or shortness of breath Blood-Glucose Meter (BLOOD GLUCOSE MONITORING) monitoring kit Test blood sugar(s) 1-2 times daily. Dx: Type 2 DM - Controlled E11.9 Insulin: No iv contrast (will be provided with radiology test) CT Urogram WO/W Inject, intravenously, once for 1 dose.No IV access, insert saline lock prior to the beginning of sedation, infusion, injection of imaging exam. Discontinue saline lock post exam. If Pt. has a central line or IVAD, may access for administration according to line specific nursing protocol. Once exam is complete flush line and de-access according to line specific nursing protocol in the CT contrast administration guidelines link. Current Facility-Administered Medications Medication Dose Route Frequency perflutren lipid microspheres 1.3 mL in NaCl (PF) 0.9% 10 mL injection (DEFINITY) INTRAVENOUS DIRECTED PRN sodium chloride 0.9 % (flush) 10 mL (BD POSIFLUSH) 10 mL INTRAVENOUS DIRECTED PRN ALLERGIES: ALLERGIES Allergen Reactions Incruse Ellipta [Um* GI Upset nausea Oxycodone Rash (percocet) PAST MEDICAL HISTORY Diagnosis Date Acute bronchitis Anxiety Chronic cough COPD (chronic obstructive pulmonary disease) (HCC) moderate, PFT 02/2016 Depression Diabetes mellitus without mention of complication Diabetes mellitus Elevated blood pressure Hypertension Intermittent cerebral ischemia Long-term memory loss Menopause Osteopenia 02/2016 Right wrist fracture TIA (transient ischemic attack) Tobacco use Wheezing PAST SURGICAL HISTORY Procedure Laterality Date APPENDECTOMY incidental DELIVERY ONLY , low transverse EXC CYST/ABERRANT BREAST TISSUE OPEN 1/> LESION OPEN REPAIR OF ROTATOR CUFF ACUTE Rotator cuff repair, L. PAST SURGICAL HISTORY OF benign mass from back TOTAL ABDOMINAL HYSTERECT W/WO RMVL TUBE OVARY Hysterectomy, ERLIN FAMILY HISTORY Problem Relation Age of Onset Coronary Artery Disease Father 70 s/p CABG Diabetes Mother Diabetes Father Cancer Maternal Aunt leukemia Social History Tobacco Use Smoking status: Every Day Packs/day: 0.25 Years: 47.00 Additional pack years: 0.00 Total pack years: 11.75 Types: Cigarettes Smokeless tobacco: Never Substance Use Topics Alcohol use: Yes Comment: rarely Drug use: No Reviewed current medications, allergies, past medical history, surgical history, family history and social history today. REVIEW OF SYSTEMS All other reviewed and negative other than HPI. HEALTH MAINTENANCE: Reviewed health maintenance issues today and recommended the following in detail. RSV Vaccine(1 - 1-dose 60+ series) Never done Advance Directive Discussion due on 05/13/2023 Depression Assessment due on 05/13/2023 VITALS: There were no vitals taken for this visit. Last 4 Encounter Wt Readings: Date: Wt: 04/12/2023 50.7 kg (111 lb 12.8 oz) 02/21/2023 51.7 kg (114 lb) 12/27/2022 54.1 kg (119 lb 3.2 oz) 09/13/2022 53.5 kg (118 lb) PHYSICAL EXAMINATION: Patient never checked in. Attempted to call and never answered. Left message to reschedule. documented in this encounter [facility] 06-29-2023 History of Presen t illness Narrative Patient presents with: Follow Up HPI:This Team Access Model visit is a phone encounter. It required patient-provider interaction for the medical decision making as documented below. Unable to connect to internet. Patient has elected to have a visit through distance medicine I have communicated my name and active licensure. The patient's identity and physical location were verified at the time of this visit. Either the patient or their legal billing representative has been informed of the risks and benefits of -- and alternatives to -- treatment through a remote evaluation and consents to proceed with the evaluation remotely. See below. Has followed most recently with Dr Sullivan, pulmonary . Her xray and labs were ok. She is getting very tired She is worn out when she does anything. Has noted increased shortness of breath. Was worse starting a week ago. Did have covid so cancelled her gi appt. Some cough but clear. No fever or chills. No chest pain or swelling. When she moves, her heart rate goes up significantly. Note was copied and pasted, without alteration from 04/18: Seen recently following second hospitalization. While in the hospital was treated for copd/exacerbation-pneumonia. We discussed repeating a chest xray after treatment. We adjusted her bp meds as well. While here she apparently had had some ongoing intermittent llq pain. She had dropped weight while ill and had a drop in hb while in the hospital. We followed her labs and ordered a ct of her abd which is pending for next week. We discussed that I believe she may need to have endoscopy performed, however, I would like to do a ct first and stabilize her pulmonary issues before they see her. She was found to have an improvement in her cbc except for a very minimal thrombocytosis. A repeat platelet count has been ordered in a month. She was to repeat her xray before her next follow up in one month. If infiltrate was persistent at that time then further work up would be indicated. Has surgery appt scheduled. Discussed increasing appetite Pain is about the same. No worse. Cough is stable. Bp is stable. Requests repeat tsh. Will check cbc at some time and get prealbumin and xray. Had echo 01/02: CONCLUSIONS: - Exam indication: Routine surveillance of moderate or severe valvular regurgitation (<1yr) - The left ventricle is normal in size. Left ventricular systolic function is normal. EF = 57 5% (2D biplane) Grade I left ventricular diastolic dysfunction. - The right ventricle is normal in size. Right ventricular systolic function is normal. - There is mild aortic insufficiency present. - Exam was compared with the prior CC echocardiographic exam performed on 12/07/2021, no significant change. CT in Dec: IMPRESSION: 1. Mild colonic diverticulosis without evidence of acute characterize. Moderate to large volume colonic stool. 2. Cholelithiasis. Chest xray: IMPRESSION: 1. Mild colonic diverticulosis without evidence of acute characterize. Moderate to large volume colonic stool. 2. Cholelithiasis. Component Latest Ref Rng & Units 04/18/2023 06/07/2023 WBC 3.70 - 11.00 k/uL 12.62 (H) 6.33 RBC 3.90 - 5.20 m/uL 3.99 3.92 Hemoglobin 11.5 - 15.5 g/dL 12.1 11.9 Hematocrit 36.0 - 46.0 % 36.9 36.8 MCV 80.0 - 100.0 fL 92.5 93.9 MCH 26.0 - 34.0 pg 30.3 30.4 MCHC 30.5 - 36.0 g/dL 32.8 32.3 RDW-CV 11.5 - 15.0 % 13.8 14.5 Platelet Count 150 - 400 k/uL 451 (H) 295 MPV 9.0 - 12.7 fL 8.4 (L) 8.4 (L) NRBC /100 WBC 0.0 0.0 Absolute nRBC <0.01 k/uL <0.01 <0.01 Neut% % 70.4 54.0 Abs Neut (ANC) 1.45 - 7.50 k/uL 8.88 (H) 3.42 Lymph% % 23.5 30.6 Abs Lymph 1.00 - 4.00 k/uL 2.97 1.94 Spalding% % 3.5 11.1 Abs Spalding <0.87 k/uL 0.44 0.70 Eosin% % 0.9 3.0 Abs Eosin <0.46 k/uL 0.11 0.19 Baso% % 1.7 1.1 Abs Baso <0.11 k/uL 0.21 (H) 0.07 Left Shift Present Platelet Estimate Increased Red Cell Morph Reviewed: see results of individual morphologies Ovalocytes Few DTYPE Manual Auto Immature Gran % % 0.2 IMMATURE GRANS (ABS) <0.10 k/uL <0.03 TSH 0.270 - 4.200 mIU/L 1.330 Prealbumin 17 - 36 mg/dL 22 Component Latest Ref Rng & Units 06/07/2023 WBC 3.70 - 11.00 k/uL 6.33 RBC 3.90 - 5.20 m/uL 3.92 Hemoglobin 11.5 - 15.5 g/dL 11.9 Hematocrit 36.0 - 46.0 % 36.8 MCV 80.0 - 100.0 fL 93.9 MCH 26.0 - 34.0 pg 30.4 MCHC 30.5 - 36.0 g/dL 32.3 RDW-CV 11.5 - 15.0 % 14.5 Platelet Count 150 - 400 k/uL 295 MPV 9.0 - 12.7 fL 8.4 (L) Neut% % 54.0 Abs Neut (ANC) 1.45 - 7.50 k/uL 3.42 Lymph% % 30.6 Abs Lymph 1.00 - 4.00 k/uL 1.94 Spalding% % 11.1 Abs Spalding <0.87 k/uL 0.70 Eosin% % 3.0 Abs Eosin <0.46 k/uL 0.19 Baso% % 1.1 Abs Baso <0.11 k/uL 0.07 Immature Gran % % 0.2 IMMATURE GRANS (ABS) <0.10 k/uL <0.03 NRBC /100 WBC 0.0 Absolute nRBC <0.01 k/uL <0.01 DTYPE Auto MEDICATIONS: Current Outpatient Medications Medication Sig atorvastatin (LIPITOR) 20 mg tablet Take 1 tablet by mouth daily at bedtime. sertraline (ZOLOFT) 100 mg tablet Take 1.5 tablets by mouth once daily. ferrous sulfate 325 mg (65 mg iron) tablet Take 1 tablet by mouth every other day. blood sugar diagnostic (BLOOD GLUCOSE TEST) test strip Test blood sugar(s) 1-2 times daily. Dx: Type 2 DM - Controlled E11.9 Insulin: No VERIO RESTASIS 0.05 % ophthalmic emulsion nicotine (NICODERM) 14 mg/24 hr Apply 1 Patch as directed every 24 hours. No smoking with patch. albuterol (PROVENTIL) 2.5 mg /3 mL (0.083 %) nebulizer solution Use 3 mL via nebulizer every 4 hours as needed for wheezing/shortness of breath. Use over 5-15minutes. metFORMIN (GLUCOPHAGE) 500 mg tablet Take 1 tablet by mouth daily with breakfast. clopidogrel (PLAVIX) 75 mg tablet Take 1 tablet by mouth once daily. Lancets lancets Test blood sugar(s) 1-2 times daily. Dx: Type 2 DM - Controlled E11.9 Insulin: No albuterol HFA (VENTOLIN HFA) 90 mcg/actuation inhaler inhale 2 puffs as directed every 4 hours if needed for wheezing or shortness of breath Blood-Glucose Meter (BLOOD GLUCOSE MONITORING) monitoring kit Test blood sugar(s) 1-2 times daily. Dx: Type 2 DM - Controlled E11.9 Insulin: No iv contrast (will be provided with radiology test) CT Urogram WO/W Inject, intravenously, once for 1 dose.No IV access, insert saline lock prior to the beginning of sedation, infusion, injection of imaging exam. Discontinue saline lock post exam. If Pt. has a central line or IVAD, may access for administration according to line specific nursing protocol. Once exam is complete flush line and de-access according to line specific nursing protocol in the CT contrast administration guidelines link. Current Facility-Administered Medications Medication Dose Route Frequency perflutren lipid microspheres 1.3 mL in NaCl (PF) 0.9% 10 mL injection (DEFINITY) INTRAVENOUS DIRECTED PRN sodium chloride 0.9 % (flush) 10 mL (BD POSIFLUSH) 10 mL INTRAVENOUS DIRECTED PRN ALLERGIES: ALLERGIES Allergen Reactions Incruse Ellipta [Um* GI Upset nausea Oxycodone Rash (percocet) PAST MEDICAL HISTORY Diagnosis Date Acute bronchitis Anxiety Chronic cough COPD (chronic obstructive pulmonary disease) (HCC) moderate, PFT 02/2016 Depression Diabetes mellitus without mention of complication Diabetes mellitus Elevated blood pressure Hypertension Intermittent cerebral ischemia Long-term memory loss Menopause Osteopenia 02/2016 Right wrist fracture TIA (transient ischemic attack) Tobacco use Wheezing PAST SURGICAL HISTORY Procedure Laterality Date APPENDECTOMY incidental DELIVERY ONLY , low transverse EXC CYST/ABERRANT BREAST TISSUE OPEN 1/> LESION OPEN REPAIR OF ROTATOR CUFF ACUTE Rotator cuff repair, L. PAST SURGICAL HISTORY OF benign mass from back TOTAL ABDOMINAL HYSTERECT W/WO RMVL TUBE OVARY Hysterectomy, ERLIN FAMILY HISTORY Problem Relation Age of Onset Coronary Artery Disease Father 70 s/p CABG Diabetes Mother Diabetes Father Cancer Maternal Aunt leukemia Social History Tobacco Use Smoking status: Every Day Packs/day: 0.25 Years: 47.00 Additional pack years: 0.00 Total pack years: 11.75 Types: Cigarettes Smokeless tobacco: Never Substance Use Topics Alcohol use: Yes Comment: rarely Drug use: No Reviewed current medications, allergies, past medical history, surgical history, family history and social history today. REVIEW OF SYSTEMS All other reviewed and negative other than HPI. VITALS: There were no vitals taken for this visit. Last 4 Encounter Wt Readings: Date: Wt: 04/12/2023 50.7 kg (111 lb 12.8 oz) 02/21/2023 51.7 kg (114 lb) 12/27/2022 54.1 kg (119 lb 3.2 oz) 09/13/2022 53.5 kg (118 lb) PHYSICAL EXAMINATION: Patient is alert and oriented during visit. Answers appropriately. ASSESSMENT/PLAN: 1. SOB (shortness of breath) - ICD9: 786.05, ICD10: R06.02 (primary diagnosis) - daughter to transport to ER at some point today. Patient agrees to go. 2. Moderate COPD (chronic obstructive pulmonary disease) (HCC) - ICD9: 496, ICD10: J44.9 - as above. Maryan Torrez MD I spent 11 minutes in the visit, with more than 50% of the total [id number] time of the visit in counseling / coordination of care. documented in this encounter [facility] 06-25-2023 Miscellaneous Notes Patient has been identified by name and date of : Yes, Provider Dr. Torrez Date 06-25-23 Time 11:48 am Daughter phones for refill(s): Requested Prescriptions Pending Prescriptions Disp Refills atorvastatin (LIPITOR) 20 mg tablet 30 tablet 3 Sig: Take 1 tablet by mouth daily at bedtime. Date of last office visit in primary care: 04/12/2023 Date of next office visit in primary care: 07/03/2023 Please advise. Thank you. Genet Medina. documented in this encounter [facility] 04-26-2023 Note HNO ID: [id number] Author: Elvira Nichols RT(R) Service: ? Author Type: Filter Changer Type: Progress Notes Filed: 04/26/2023 12:43 PM Note Text: Radiology Service Progress Note DATE OF SERVICE: April 26, 2023 TIME: 12:42 PM PATIENT IDENTITY VERIFICATION COMPLETED USING TWO (2) STANDARD IDENTIFIERS: Name and Date of confirmed by patient verbally. FALL SCREENING: Has the patient had 2 falls in the last year or 1 fall with injury or currently using an Ambulatory Assistive Device (Walker, Cane, Wheelchair, Crutches, etc.)? No PATIENT GENDER DATA: Female. status: : No status: NO. PATIENT RELEVANT IMPLANT DATA REVIEWED: Yes ALLERGIES: Reviewed and unchanged CONTRAST ALLERGY: NO. EXAM: CT -CONTRAST INDUCED NEPHROPATHY RISK FACTORS: Patient age > 60 years CREATININE: Creatinine Date Value Ref Range Status 04/12/2023 0.86 0.58 - 0.96 mg/dL Final 12/31/2022 1.03 (H) 0.58 - 0.96 mg/dL Final 11/20/2021 0.93 0.58 - 0.96 mg/dL Final Estimated Glomerular Filtration Rate Date Value Ref Range Status 04/12/2023 70 >=60 mL/min/1.73m? Final Comment: Estimated Glomerular Filtration Rate (eGFR) is calculated using the 2020 CKD-EPI creatinine equation. This equation utilizes serum creatinine, sex, and age as parameters. The creatinine assay has traceable calibration to isotope dilution-mass spectrometry. Refer to KDIGO guidelines for clinical interpretation. In patients with unstable renal function, e.g. those with acute kidney injury, the eGFR may not accurately reflect actual GFR. eGFR- Date Value Ref Range Status 04/27/2021 >60 Final P.O.C.T. RESULTS: POC done: Yes, See Lab Tab April 26, 2023 TREATMENT: N/A PERIPHERAL IV DATA: Ambulatory: A peripheral IV was started in the Left antecubital site with a Angio cath: 22 gauge. RADIOLOGY DEPARTMENT: CT; Exam(s) Completed: Abdomen/Pelvis SIGNATURE: RT Olivia(R) PATIENT NAME: Colton Montana DATE: April 26, 2023 TIME: 12:42 PM [facility] 04-26-2023 History of Presen t illness Narrative Radiology Service Progress Note DATE OF SERVICE: April 26, 2023 TIME: 12:42 PM PATIENT IDENTITY VERIFICATION COMPLETED USING TWO (2) STANDARD IDENTIFIERS: Name and Date of confirmed by patient verbally. FALL SCREENING: Has the patient had 2 falls in the last year or 1 fall with injury or currently using an Ambulatory Assistive Device (Walker, Cane, Wheelchair, Crutches, etc.)? No PATIENT GENDER DATA: Female. status: : No status: NO. PATIENT RELEVANT IMPLANT DATA REVIEWED: Yes ALLERGIES: Reviewed and unchanged CONTRAST ALLERGY: NO. EXAM: CT -CONTRAST INDUCED NEPHROPATHY RISK FACTORS: Patient age > 60 years CREATININE: Creatinine Date Value Ref Range Status 04/12/2023 0.86 0.58 - 0.96 mg/dL Final 12/31/2022 1.03 (H) 0.58 - 0.96 mg/dL Final 11/20/2021 0.93 0.58 - 0.96 mg/dL Final Estimated Glomerular Filtration Rate Date Value Ref Range Status 04/12/2023 70 >=60 mL/min/1.73m Final Comment: Estimated Glomerular Filtration Rate (eGFR) is calculated using the 2020 CKD-EPI creatinine equation. This equation utilizes serum creatinine, sex, and age as parameters. The creatinine assay has traceable calibration to isotope dilution-mass spectrometry. Refer to KDIGO guidelines for clinical interpretation. In patients with unstable renal function, e.g. those with acute kidney injury, the eGFR may not accurately reflect actual GFR. eGFR- Date Value Ref Range Status 04/27/2021 >60 Final P.O.C.T. RESULTS: POC done: Yes, See Lab Tab April 26, 2023 TREATMENT: N/A PERIPHERAL IV DATA: Ambulatory: A peripheral IV was started in the Left antecubital site with a Angio cath: 22 gauge. RADIOLOGY DEPARTMENT: CT; Exam(s) Completed: Abdomen/Pelvis SIGNATURE: RT Olivia(R) PATIENT NAME: Colton Montana DATE: April 26, 2023 TIME: 12:42 PM documented in this encounter [facility] 04-23-2023 Miscellaneous Notes Patient was made aware of the results. Patient verbalizes understanding. Griselda Rodríguez Ma Leukocytosis, resolved thrombocytosis, recheck in 1 month Telephone on 04/22/23 CBC + DIFF Josh, Kelvin Rose PA-C documented in this encounter [facility] 04-18-2023 Note HNO ID: [id number] Author: Hue Seymour RT(Daxa) Service: ? Author Type: Technologist Type: Progress Notes Filed: 04/18/2023 1:29 PM Note Text: Radiology Service Progress Note PATIENT NAME: Colton Montana DATE OF SERVICE: April 18, 2023 TIME: 1:27 PM PATIENT IDENTITY VERIFICATION COMPLETED USING TWO (2) IDENTIFIERS: Name and Date of confirmed by patient verbally. FALL SCREENING: Has the patient had 2 falls in the last year or 1 fall with injury or currently using an Ambulatory Assistive Device (Walker, Cane, Wheelchair, Crutches, etc.)? No PATIENT GENDER DATA: Female. status: : No status: NO. PATIENT RELEVANT IMPLANT DATA REVIEWED: Not Applicable RADIOLOGY DEPARTMENT: General X-ray: Exam(s) Completed: Chest X-Ray PERIPHERAL IV DATA: Not applicable SIGNED BY: RT Jeremiah(Daxa) April 18, 2023 1:27 PM [facility] 04-18-2023 Note HNO ID: [id number] Author: Maryan Torrez MD Service: ? Author Type: Physician Type: Progress Notes Filed: 04/18/2023 12:06 PM Note Text: Patient presents with: Follow Up HPI:This Team Access Model visit is a virtual encounter. It required patient-provider interaction for the medical decision making as documented below. Patient has elected to have a visit through distance medicine I have communicated my name and active licensure. The patient's identity and physical location were verified at the time of this visit. Either the patient or their legal billing representative has been informed of the risks and benefits of -- and alternatives to -- treatment through a remote evaluation and consents to proceed with the evaluation remotely. Seen recently following second hospitalization. While in the hospital was treated for copd/exacerbation-pneumonia. We discussed repeating a chest xray after treatment. We adjusted her bp meds as well. While here she apparently had had some ongoing intermittent llq pain. She had dropped weight while ill and had a drop in hb while in the hospital. We followed her labs and ordered a ct of her abd which is pending for next week. We discussed that I believe she may need to have endoscopy performed, however, I would like to do a ct first and stabilize her pulmonary issues before they see her. She was found to have an improvement in her cbc except for a very minimal thrombocytosis. A repeat platelet count has been ordered in a month. She was to repeat her xray before her next follow up in one month. If infiltrate was persistent at that time then further work up would be indicated. Has surgery appt scheduled. Discussed increasing appetite Pain is about the same. No worse. Cough is stable. Bp is stable. Requests repeat tsh. Will check cbc at some time and get prealbumin and xray. See previous ov, copied and pasted: Seen in [facility] ER on 04/07/23. Went in for exacerbation of COPD. Admitted 04/08/23. Discharged on 04/10/23. Dx Hypoxemia CXR showed suspected left lower lobe pneumonia. Had just been in the hospital the month before with an infiltrate in the same area. Discharged with Prednisone and Levofloxacin No melanotic or bloody stools. Hb has dropped from 13 in December to 9.9 in hospital. No nausea or vomiting. Having LLQ pain intermittently for a month. Comes and goes. Worse with cough or lay on her left side. ? Changes with BM Has no current bowel changes. No urinary issues. Her diastolic has been as low as 50's and 60's. Has improved some. Still gets very short of breath with exertion. Still with cough and wheezing See previous OV: Admitted to [facility] 02/24 to 02/26 Was not acting herself. Had elevated d dimer, white count. Had hyponatremia Her CT showed left sided pneumonia. Also had ? Pleural effusion. Added doxycycline Also placed on iron Her hb after hydration was down to 10.5.. was iron deficient on exam. No gi issues prior. No black or bloody stools. No gi pain, heartburn. No bowel changes. Her recent iron and ferritin levels last year were ok. Most recent hb is ok. Still weak. Still some shortness of breath but not as bad. No cough. No chest pain. She had a remote colonoscopy Component Latest Ref Rng AND Units 04/12/2023 WBC 3.70 - 11.00 k/uL 10.97 RBC 3.90 - 5.20 m/uL 4.02 Hemoglobin 11.5 - 15.5 g/dL 12.2 Hematocrit 36.0 - 46.0 % 37.5 MCV 80.0 - 100.0 fL 93.3 MCH 26.0 - 34.0 pg 30.3 MCHC 30.5 - 36.0 g/dL 32.5 RDW-CV 11.5 - 15.0 % 13.1 Platelet Count 150 - 400 k/uL 458 (H) MPV 9.0 - 12.7 fL 9.0 NRBC /100 WBC 0.0 Absolute nRBC <0.01 k/uL <0.01 Neut% % 86.2 Abs Neut (ANC) 1.45 - 7.50 k/uL 9.46 (H) Lymph% % 6.9 Abs Lymph 1.00 - 4.00 k/uL 0.76 (L) Spalding% % 5.2 Abs Spalding <0.87 k/uL 0.57 Eosin% % 0.0 Abs Eosin <0.46 k/uL 0.00 Baso% % 0.0 Abs Baso <0.11 k/uL 0.00 Duncan% % 1.7 Left Shift Present Platelet Estimate Increased Red Cell Morph Reviewed: see results of individual morphologies Ovalocytes Few DTYPE Manual Glucose 74 - 99 mg/dL 114 (H) BUN 7 - 21 mg/dL 22 (H) Creatinine 0.58 - 0.96 mg/dL 0.86 Sodium 136 - 144 mmol/L 134 (L) Potassium 3.7 - 5.1 mmol/L 4.5 Chloride 97 - 105 mmol/L 97 CO2 22 - 30 mmol/L 26 Anion Gap 9 - 18 mmol/L 11 Calcium 8.5 - 10.2 mg/dL 9.5 eGFR >=60 mL/min/1.73mA? 70 Iron 41 - 186 ug/dL 102 TIBC 232 - 386 ug/dL 274 Transferrin Saturation 15.0 - 57.0 % 37.2 MEDICATIONS: Current Outpatient Medications Medication Sig RESTASIS 0.05 % ophthalmic emulsion levoFLOXacin (LEVAQUIN) 500 mg tablet predniSONE (DELTASONE) 20 mg tablet ferrous sulfate 325 mg (65 mg iron) tablet Take 1 tablet by mouth every other day. nicotine (NICODERM) 14 mg/24 hr Apply 1 Patch as directed every 24 hours. No smoking with patch. albuterol (PROVENTIL) 2.5 mg /3 mL (0.083 %) nebulizer solution Use 3 mL via nebulizer every 4 hours as needed for wheezing/sh (more content not included)... [facility] 04-18-2023 History of Presen t illness Narrative Radiology Service Progress Note PATIENT NAME: Colton Montana DATE OF SERVICE: April 18, 2023 TIME: 1:27 PM PATIENT IDENTITY VERIFICATION COMPLETED USING TWO (2) IDENTIFIERS: Name and Date of confirmed by patient verbally. FALL SCREENING: Has the patient had 2 falls in the last year or 1 fall with injury or currently using an Ambulatory Assistive Device (Walker, Cane, Wheelchair, Crutches, etc.)? No PATIENT GENDER DATA: Female. status: : No status: NO. PATIENT RELEVANT IMPLANT DATA REVIEWED: Not Applicable RADIOLOGY DEPARTMENT: General X-ray: Exam(s) Completed: Chest X-Ray PERIPHERAL IV DATA: Not applicable SIGNED BY: RT Jeremiah(R) April 18, 2023 1:27 PM documented in this encounter [facility] 04-18-2023 History of Presen t illness Narrative Patient presents with: Follow Up HPI:This Team Access Model visit is a virtual encounter. It required patient-provider interaction for the medical decision making as documented below. Patient has elected to have a visit through distance medicine I have communicated my name and active licensure. The patient's identity and physical location were verified at the time of this visit. Either the patient or their legal billing representative has been informed of the risks and benefits of -- and alternatives to -- treatment through a remote evaluation and consents to proceed with the evaluation remotely. Seen recently following second hospitalization. While in the hospital was treated for copd/exacerbation-pneumonia. We discussed repeating a chest xray after treatment. We adjusted her bp meds as well. While here she apparently had had some ongoing intermittent llq pain. She had dropped weight while ill and had a drop in hb while in the hospital. We followed her labs and ordered a ct of her abd which is pending for next week. We discussed that I believe she may need to have endoscopy performed, however, I would like to do a ct first and stabilize her pulmonary issues before they see her. She was found to have an improvement in her cbc except for a very minimal thrombocytosis. A repeat platelet count has been ordered in a month. She was to repeat her xray before her next follow up in one month. If infiltrate was persistent at that time then further work up would be indicated. Has surgery appt scheduled. Discussed increasing appetite Pain is about the same. No worse. Cough is stable. Bp is stable. Requests repeat tsh. Will check cbc at some time and get prealbumin and xray. See previous ov, copied and pasted: Seen in [facility] ER on 04/07/23. Went in for exacerbation of COPD. Admitted 04/08/23. Discharged on 04/10/23. Dx Hypoxemia CXR showed suspected left lower lobe pneumonia. Had just been in the hospital the month before with an infiltrate in the same area. Discharged with Prednisone and Levofloxacin No melanotic or bloody stools. Hb has dropped from 13 in December to 9.9 in hospital. No nausea or vomiting. Having LLQ pain intermittently for a month. Comes and goes. Worse with cough or lay on her left side. ? Changes with BM Has no current bowel changes. No urinary issues. Her diastolic has been as low as 50's and 60's. Has improved some. Still gets very short of breath with exertion. Still with cough and wheezing See previous OV: Admitted to [facility] 02/24 to 02/26 Was not acting herself. Had elevated d dimer, white count. Had hyponatremia Her CT showed left sided pneumonia. Also had ? Pleural effusion. Added doxycycline Also placed on iron Her hb after hydration was down to 10.5.. was iron deficient on exam. No gi issues prior. No black or bloody stools. No gi pain, heartburn. No bowel changes. Her recent iron and ferritin levels last year were ok. Most recent hb is ok. Still weak. Still some shortness of breath but not as bad. No cough. No chest pain. She had a remote colonoscopy Component Latest Ref Rng & Units 04/12/2023 WBC 3.70 - 11.00 k/uL 10.97 RBC 3.90 - 5.20 m/uL 4.02 Hemoglobin 11.5 - 15.5 g/dL 12.2 Hematocrit 36.0 - 46.0 % 37.5 MCV 80.0 - 100.0 fL 93.3 MCH 26.0 - 34.0 pg 30.3 MCHC 30.5 - 36.0 g/dL 32.5 RDW-CV 11.5 - 15.0 % 13.1 Platelet Count 150 - 400 k/uL 458 (H) MPV 9.0 - 12.7 fL 9.0 NRBC /100 WBC 0.0 Absolute nRBC <0.01 k/uL <0.01 Neut% % 86.2 Abs Neut (ANC) 1.45 - 7.50 k/uL 9.46 (H) Lymph% % 6.9 Abs Lymph 1.00 - 4.00 k/uL 0.76 (L) Spalding% % 5.2 Abs Spalding <0.87 k/uL 0.57 Eosin% % 0.0 Abs Eosin <0.46 k/uL 0.00 Baso% % 0.0 Abs Baso <0.11 k/uL 0.00 Duncan% % 1.7 Left Shift Present Platelet Estimate Increased Red Cell Morph Reviewed: see results of individual morphologies Ovalocytes Few DTYPE Manual Glucose 74 - 99 mg/dL 114 (H) BUN 7 - 21 mg/dL 22 (H) Creatinine 0.58 - 0.96 mg/dL 0.86 Sodium 136 - 144 mmol/L 134 (L) Potassium 3.7 - 5.1 mmol/L 4.5 Chloride 97 - 105 mmol/L 97 CO2 22 - 30 mmol/L 26 Anion Gap 9 - 18 mmol/L 11 Calcium 8.5 - 10.2 mg/dL 9.5 eGFR >=60 mL/min/1.73m 70 Iron 41 - 186 ug/dL 102 TIBC 232 - 386 ug/dL 274 Transferrin Saturation 15.0 - 57.0 % 37.2 MEDICATIONS: Current Outpatient Medications Medication Sig RESTASIS 0.05 % ophthalmic emulsion levoFLOXacin (LEVAQUIN) 500 mg tablet predniSONE (DELTASONE) 20 mg tablet ferrous sulfate 325 mg (65 mg iron) tablet Take 1 tablet by mouth every other day. nicotine (NICODERM) 14 mg/24 hr Apply 1 Patch as directed every 24 hours. No smoking with patch. albuterol (PROVENTIL) 2.5 mg /3 mL (0.083 %) nebulizer solution Use 3 mL via nebulizer every 4 hours as needed for wheezing/shortness of breath. Use over 5-15minutes. metFORMIN (GLUCOPHAGE) 500 mg tablet Take 1 tablet by mouth daily with breakfast. clopidogrel (PLAVIX) 75 mg tablet Take 1 tablet by mouth once daily. Lancets lancets Test blood sugar(s) 1-2 times daily. Dx: Type 2 DM - Controlled E11.9 Insulin: No blood sugar diagnostic (BLOOD GLUCOSE TEST) test strip Test blood sugar(s) 1-2 times daily. Dx: Type 2 DM - Controlled E11.9 Insulin: No VERIO atorvastatin (LIPITOR) 20 mg tablet Take 1 tablet by mouth daily at bedtime. sertraline (ZOLOFT) 100 mg tablet Take 1.5 tablets by mouth once daily. albuterol HFA (VENTOLIN HFA) 90 mcg/actuation inhaler inhale 2 puffs as directed every 4 hours if needed for wheezing or shortness of breath Blood-Glucose Meter (BLOOD GLUCOSE MONITORING) monitoring kit Test blood sugar(s) 1-2 times daily. Dx: Type 2 DM - Controlled E11.9 Insulin: No iv contrast (will be provided with radiology test) CT Urogram WO/W Inject, intravenously, once for 1 dose.No IV access, insert saline lock prior to the beginning of sedation, infusion, injection of imaging exam. Discontinue saline lock post exam. If Pt. has a central line or IVAD, may access for administration according to line specific nursing protocol. Once exam is complete flush line and de-access according to line specific nursing protocol in the CT contrast administration guidelines link. Current Facility-Administered Medications Medication Dose Route Frequency perflutren lipid microspheres 1.3 mL in NaCl (PF) 0.9% 10 mL injection (DEFINITY) INTRAVENOUS DIRECTED PRN sodium chloride 0.9 % (flush) 10 mL (BD POSIFLUSH) 10 mL INTRAVENOUS DIRECTED PRN ALLERGIES: ALLERGIES Allergen Reactions Incruse Ellipta [Um* GI Upset nausea Oxycodone Rash (percocet) PAST MEDICAL HISTORY Diagnosis Date Acute bronchitis Anxiety Chronic cough COPD (chronic obstructive pulmonary disease) (HCC) moderate, PFT 02/2016 Depression Diabetes mellitus without mention of complication Diabetes mellitus Elevated blood pressure Hypertension Intermittent cerebral ischemia Long-term memory loss Menopause Osteopenia 02/2016 Right wrist fracture TIA (transient ischemic attack) Tobacco use Wheezing PAST SURGICAL HISTORY Procedure Laterality Date APPENDECTOMY incidental DELIVERY ONLY , low transverse EXC CYST/ABERRANT BREAST TISSUE OPEN 1/> LESION OPEN REPAIR OF ROTATOR CUFF ACUTE Rotator cuff repair, L. PAST SURGICAL HISTORY OF benign mass from back TOTAL ABDOMINAL HYSTERECT W/WO RMVL TUBE OVARY Hysterectomy, ERLIN FAMILY HISTORY Problem Relation Age of Onset Coronary Artery Disease Father 70 s/p CABG Diabetes Mother Diabetes Father Cancer Maternal Aunt leukemia Social History Tobacco Use Smoking status: Every Day Packs/day: 0.25 Years: 47.00 Additional pack years: 0.00 Total pack years: 11.75 Types: Cigarettes Smokeless tobacco: Never Substance Use Topics Alcohol use: Yes Comment: rarely Drug use: No Reviewed current medications, allergies, past medical history, surgical history, family history and social history today. REVIEW OF SYSTEMS All other reviewed and negative other than HPI. HEALTH MAINTENANCE: Reviewed health maintenance issues today and recommended the following in detail. RSV Vaccine(1 - 1-dose 60+ series) Never done VITALS: There were no vitals taken for this visit. Last 4 Encounter Wt Readings: Date: Wt: 04/12/2023 50.7 kg (111 lb 12.8 oz) 02/21/2023 51.7 kg (114 lb) 12/27/2022 54.1 kg (119 lb 3.2 oz) 09/13/2022 53.5 kg (118 lb) PHYSICAL EXAMINATION: Patient is alert and oriented during visit. Answers appropriately. ASSESSMENT/PLAN: 1. Bacterial pneumonia - ICD9: 482.9, ICD10: J15.9 (primary diagnosis) Improving. Recheck xray. 2. History of anemia - ICD9: V12.3, ICD10: Z86.2 - follow cbc. Get ct and see surgery. 3. Thrombocytosis - ICD9: 238.71, ICD10: D75.839 - recheck labs. - CBC + DIFF 4. Chronic obstructive pulmonary disease, unspecified COPD type (HCC) - ICD9: 496, ICD10: J44.9 - stable. 5. Hypertension goal BP (blood pressure) < 150/90 - ICD9: 401.9, ICD10: I10 - Controlled - now off meds 6. LLQ pain - ICD9: 789.04, ICD10: R10.32 - work up as before. Red flags for re-assessment reviewed with patient in detail. 7. Abnormal weight loss - ICD9: 783.21, ICD10: R63.4 - TSH BLD - PREALBUMIN BLD Maryan Torrez MD RTO in one month or prn documented in this encounter [facility] 04-18-2023 Miscellaneous Notes Pts daughter called in to make sure her mothers abd/pelvis CT was authorized. Sent message to [employer] and they replied, This patient has Medicare A and B primary so no authorization is needed for this service. . Put Pts daughter through to scheduling to try and move CT up. documented in this encounter [facility] 04-15-2023 Miscellaneous Notes Pt's daughter notified of results and provider message. Gela Manzo LPN Left message for patient to return call. Griselda Rodríguez Ma No anemia. Her platelets are slightly up. Doubt is significant. Rest of labs are ok. Recheck platelet count in one month documented in this encounter [facility] 04-12-2023 Note HNO ID: [id number] Author: Maryan Torrez MD Service: ? Author Type: Physician Type: Progress Notes Filed: 04/12/2023 11:51 AM Note Text: Patient presents with: Follow Up HPI: Patient presents today for office visit for follow up. Seen in [facility] ER on 04/07/23. Went in for exacerbation of COPD. Admitted 04/08/23. Discharged on 04/10/23. Dx Hypoxemia CXR showed suspected left lower lobe pneumonia. Had just been in the hospital the month before with an infiltrate in the same area. Discharged with Prednisone and Levofloxacin No melanotic or bloody stools. Hb has dropped from 13 in December to 9.9 in hospital. No nausea or vomiting. Having LLQ pain intermittently for a month. Comes and goes. Worse with cough or lay on her left side. ? Changes with BM Has no current bowel changes. No urinary issues. Her diastolic has been as low as 50's and 60's. Has improved some. Still gets very short of breath with exertion. Still with cough and wheezing See previous OV: Admitted to [facility] 02/24 to 02/26 Was not acting herself. Had elevated d dimer, white count. Had hyponatremia Her CT showed left sided pneumonia. Also had ? Pleural effusion. Added doxycycline Also placed on iron Her hb after hydration was down to 10.5.. was iron deficient on exam. No gi issues prior. No black or bloody stools. No gi pain, heartburn. No bowel changes. Her recent iron and ferritin levels last year were ok. Most recent hb is ok. Still weak. Still some shortness of breath but not as bad. No cough. No chest pain. She had a remote colonoscopy MEDICATIONS: Current Outpatient Medications Medication Sig RESTASIS 0.05 % ophthalmic emulsion levoFLOXacin (LEVAQUIN) 500 mg tablet predniSONE (DELTASONE) 20 mg tablet metFORMIN (GLUCOPHAGE) 500 mg tablet Take 1 tablet by mouth daily with breakfast. clopidogrel (PLAVIX) 75 mg tablet Take 1 tablet by mouth once daily. Lancets lancets Test blood sugar(s) 1-2 times daily. Dx: Type 2 DM - Controlled E11.9 Insulin: No blood sugar diagnostic (BLOOD GLUCOSE TEST) test strip Test blood sugar(s) 1-2 times daily. Dx: Type 2 DM - Controlled E11.9 Insulin: No VERIO losartan (COZAAR) 25 mg tablet Take 1 tablet by mouth once daily. atorvastatin (LIPITOR) 20 mg tablet Take 1 tablet by mouth daily at bedtime. sertraline (ZOLOFT) 100 mg tablet Take 1.5 tablets by mouth once daily. albuterol HFA (VENTOLIN HFA) 90 mcg/actuation inhaler inhale 2 puffs as directed every 4 hours if needed for wheezing or shortness of breath Blood-Glucose Meter (BLOOD GLUCOSE MONITORING) monitoring kit Test blood sugar(s) 1-2 times daily. Dx: Type 2 DM - Controlled E11.9 Insulin: No iv contrast (will be provided with radiology test) CT Urogram WO/W Inject, intravenously, once for 1 dose.No IV access, insert saline lock prior to the beginning of sedation, infusion, injection of imaging exam. Discontinue saline lock post exam. If Pt. has a central line or IVAD, may access for administration according to line specific nursing protocol. Once exam is complete flush line and de-access according to line specific nursing protocol in the CT contrast administration guidelines link. Current Facility-Administered Medications Medication Dose Route Frequency perflutren lipid microspheres 1.3 mL in NaCl (PF) 0.9% 10 mL injection (DEFINITY) INTRAVENOUS DIRECTED PRN sodium chloride 0.9 % (flush) 10 mL (BD POSIFLUSH) 10 mL INTRAVENOUS DIRECTED PRN ALLERGIES: ALLERGIES Allergen Reactions Incruse Ellipta [Um* GI Upset nausea Oxycodone Rash (percocet) PAST MEDICAL HISTORY Diagnosis Date Acute bronchitis Anxiety Chronic cough COPD (chronic obstructive pulmonary disease) (HCC) moderate, PFT 02/2016 Depression Diabetes mellitus without mention of complication Diabetes mellitus Elevated blood pressure Hypertension Intermittent cerebral ischemia Long-term memory loss Menopause Osteopenia 02/2016 Right wrist fracture TIA (transient ischemic attack) Tobacco use Wheezing PAST SURGICAL HISTORY Procedure Laterality Date APPENDECTOMY incidental DELIVERY ONLY , low transverse EXC CYST/ABERRANT BREAST TISSUE OPEN 1/> LESION OPEN REPAIR OF ROTATOR CUFF ACUTE Rotator cuff repair, L. PAST SURGICAL HISTORY OF benign mass from back TOTAL ABDOMINAL HYSTERECT W/WO RMVL TUBE OVARY Hysterectomy, ERLIN FAMILY HISTORY Problem Relation Age of Onset Coronary Artery Disease Father 70 s/p CABG Diabetes Mother Diabetes Father Cancer Maternal Aunt leukemia Social History Tobacco Use Smoking status: Every Day Packs/day: 0.25 Years: 47.00 Additional pack years: 0.00 Total pack years: 11.75 Types: Cigarettes Smokeless tobacco: Never Substance Use Topics Alcohol use: Yes Comment: rarely Drug use: No Reviewed current medications, allergies, past medical history, surgical history, family history and social hi (more content not included)... [facility] 04-12-2023 History of Presen t illness Narrative Patient presents with: Follow Up HPI: Patient presents today for office visit for follow up. Seen in [facility] ER on 04/07/23. Went in for exacerbation of COPD. Admitted 04/08/23. Discharged on 04/10/23. Dx Hypoxemia CXR showed suspected left lower lobe pneumonia. Had just been in the hospital the month before with an infiltrate in the same area. Discharged with Prednisone and Levofloxacin No melanotic or bloody stools. Hb has dropped from 13 in December to 9.9 in hospital. No nausea or vomiting. Having LLQ pain intermittently for a month. Comes and goes. Worse with cough or lay on her left side. ? Changes with BM Has no current bowel changes. No urinary issues. Her diastolic has been as low as 50's and 60's. Has improved some. Still gets very short of breath with exertion. Still with cough and wheezing See previous OV: Admitted to [facility] 02/24 to 02/26 Was not acting herself. Had elevated d dimer, white count. Had hyponatremia Her CT showed left sided pneumonia. Also had ? Pleural effusion. Added doxycycline Also placed on iron Her hb after hydration was down to 10.5.. was iron deficient on exam. No gi issues prior. No black or bloody stools. No gi pain, heartburn. No bowel changes. Her recent iron and ferritin levels last year were ok. Most recent hb is ok. Still weak. Still some shortness of breath but not as bad. No cough. No chest pain. She had a remote colonoscopy MEDICATIONS: Current Outpatient Medications Medication Sig RESTASIS 0.05 % ophthalmic emulsion levoFLOXacin (LEVAQUIN) 500 mg tablet predniSONE (DELTASONE) 20 mg tablet metFORMIN (GLUCOPHAGE) 500 mg tablet Take 1 tablet by mouth daily with breakfast. clopidogrel (PLAVIX) 75 mg tablet Take 1 tablet by mouth once daily. Lancets lancets Test blood sugar(s) 1-2 times daily. Dx: Type 2 DM - Controlled E11.9 Insulin: No blood sugar diagnostic (BLOOD GLUCOSE TEST) test strip Test blood sugar(s) 1-2 times daily. Dx: Type 2 DM - Controlled E11.9 Insulin: No VERIO losartan (COZAAR) 25 mg tablet Take 1 tablet by mouth once daily. atorvastatin (LIPITOR) 20 mg tablet Take 1 tablet by mouth daily at bedtime. sertraline (ZOLOFT) 100 mg tablet Take 1.5 tablets by mouth once daily. albuterol HFA (VENTOLIN HFA) 90 mcg/actuation inhaler inhale 2 puffs as directed every 4 hours if needed for wheezing or shortness of breath Blood-Glucose Meter (BLOOD GLUCOSE MONITORING) monitoring kit Test blood sugar(s) 1-2 times daily. Dx: Type 2 DM - Controlled E11.9 Insulin: No iv contrast (will be provided with radiology test) CT Urogram WO/W Inject, intravenously, once for 1 dose.No IV access, insert saline lock prior to the beginning of sedation, infusion, injection of imaging exam. Discontinue saline lock post exam. If Pt. has a central line or IVAD, may access for administration according to line specific nursing protocol. Once exam is complete flush line and de-access according to line specific nursing protocol in the CT contrast administration guidelines link. Current Facility-Administered Medications Medication Dose Route Frequency perflutren lipid microspheres 1.3 mL in NaCl (PF) 0.9% 10 mL injection (DEFINITY) INTRAVENOUS DIRECTED PRN sodium chloride 0.9 % (flush) 10 mL (BD POSIFLUSH) 10 mL INTRAVENOUS DIRECTED PRN ALLERGIES: ALLERGIES Allergen Reactions Incruse Ellipta [Um* GI Upset nausea Oxycodone Rash (percocet) PAST MEDICAL HISTORY Diagnosis Date Acute bronchitis Anxiety Chronic cough COPD (chronic obstructive pulmonary disease) (HCC) moderate, PFT 02/2016 Depression Diabetes mellitus without mention of complication Diabetes mellitus Elevated blood pressure Hypertension Intermittent cerebral ischemia Long-term memory loss Menopause Osteopenia 02/2016 Right wrist fracture TIA (transient ischemic attack) Tobacco use Wheezing PAST SURGICAL HISTORY Procedure Laterality Date APPENDECTOMY incidental DELIVERY ONLY , low transverse EXC CYST/ABERRANT BREAST TISSUE OPEN 1/> LESION OPEN REPAIR OF ROTATOR CUFF ACUTE Rotator cuff repair, L. PAST SURGICAL HISTORY OF benign mass from back TOTAL ABDOMINAL HYSTERECT W/WO RMVL TUBE OVARY Hysterectomy, ERLIN FAMILY HISTORY Problem Relation Age of Onset Coronary Artery Disease Father 70 s/p CABG Diabetes Mother Diabetes Father Cancer Maternal Aunt leukemia Social History Tobacco Use Smoking status: Every Day Packs/day: 0.25 Years: 47.00 Additional pack years: 0.00 Total pack years: 11.75 Types: Cigarettes Smokeless tobacco: Never Substance Use Topics Alcohol use: Yes Comment: rarely Drug use: No Reviewed current medications, allergies, past medical history, surgical history, family history and social history today. REVIEW OF SYSTEMS All other reviewed and negative other than HPI. VITALS: BP 110/50 Pulse 86 Temp 36.3 C (97.4 F) (Left Tympanic) Ht 158.8 cm (5' 2.5 ) Wt 50.7 kg (111 lb 12.8 oz) SpO2 93% BMI 20.12 kg/m Last 4 Encounter Wt Readings: Date: Wt: 02/21/2023 51.7 kg (114 lb) 12/27/2022 54.1 kg (119 lb 3.2 oz) 09/13/2022 53.5 kg (118 lb) 08/23/2022 52.6 kg (116 lb) PHYSICAL EXAMINATION: General appearance: Well appearing, alert, in no acute distress, well-hydrated, well nourished. Skin: Skin color, texture, turgor normal, no suspicious rashes or lesions Head: Normocephalic, no masses, lesions, tenderness or abnormalities Lungs:scattered rhonchi Heart: RRR without murmur, gallop, or rubs. No ectopy Abdomen: soft, llq tenderness. No mass or rebound. No guarding. Extremities: No deformities, edema, skin discoloration, clubbing or cyanosis. Good capillary refill. ASSESSMENT/PLAN: 1. Bacterial pneumonia - ICD9: 482.9, ICD10: J15.9 (primary diagnosis) - stay on antibiotic. Get xray before next ov. - XR CHEST 2V FRONTAL/LAT 2. Anemia, unspecified type - ICD9: 285.9, ICD10: D64.9 - consider egd and colonoscopy. - FERROUS SULFATE 325 MG (65 MG IRON) TABLET 3. Chronic obstructive pulmonary disease, unspecified COPD type (HCC) - ICD9: 496, ICD10: J44.9 - call if worsens. - XR CHEST 2V FRONTAL/LAT - ALBUTEROL SULFATE 2.5 MG/3 ML (0.083 %) SOLUTION FOR NEBULIZATION - NEBULIZER 4. Nonrheumatic aortic valve insufficiency - ICD9: 424.1, ICD10: I35.1 - stable. 5. Hypertension goal BP (blood pressure) < 150/90 - ICD9: 401.9, ICD10: I10 - slightly low. Stop losartan. Follow closely. 6. LLQ pain - ICD9: 789.04, ICD10: R10.32 - given anemia and llq pain. Get ct. Likely will need gi work up once stable. - CT ABD/PEL W IVCON - IV CONTRAST (RADIOLOGY PROCEDURE) - ENTERIC CONTRAST (RADIOLOGY PROCEDURE) 7. Left lower quadrant abdominal pain - ICD9: 789.04, ICD10: R10.32 - as above 8. Tobacco use - ICD9: 305.1, ICD10: Z72.0 - Discussed risks and benefits of new medication with the patient. Advised them to call if any side effects or questions. - NICOTINE 14 MG/24 HR DAILY TRANSDERMAL PATCH Maryan Torrez MD documented in this encounter [facility] 03-11-2023 Note HNO ID: [id number] Author: Maryan Torrez MD Service: ? Author Type: Physician Type: Progress Notes Filed: 03/11/2023 2:32 PM Note Text: No chief complaint on file. HPI:This Team Access Model visit is a virtual encounter. It required patient-provider interaction for the medical decision making as documented below. Patient has elected to have a visit through distance medicine I have communicated my name and active licensure. The patient's identity and physical location were verified at the time of this visit. Either the patient or their legal billing representative has been informed of the risks and benefits of -- and alternatives to -- treatment through a remote evaluation and consents to proceed with the evaluation remotely. Weaned off oxygen. Admitted to [facility] 02/24 to 02/26 Was not acting herself. Had elevated d dimer, white count. Had hyponatremia Her CT showed left sided pneumonia. Also had ? Pleural effusion. Added doxycycline Also placed on iron Her hb after hydration was down to 10.5.. was iron deficient on exam. No gi issues prior. No black or bloody stools. No gi pain, heartburn. No bowel changes. Her recent iron and ferritin levels last year were ok. Most recent hb is ok. Still weak. Still some shortness of breath but not as bad. No cough. No chest pain. She had a remote colonoscopy MEDICATIONS: Current Outpatient Medications Medication Sig metFORMIN (GLUCOPHAGE) 500 mg tablet Take 1 tablet by mouth daily with breakfast. clopidogrel (PLAVIX) 75 mg tablet Take 1 tablet by mouth once daily. Lancets lancets Test blood sugar(s) 1-2 times daily. Dx: Type 2 DM - Controlled E11.9 Insulin: No blood sugar diagnostic (BLOOD GLUCOSE TEST) test strip Test blood sugar(s) 1-2 times daily. Dx: Type 2 DM - Controlled E11.9 Insulin: No VERIO losartan (COZAAR) 25 mg tablet Take 1 tablet by mouth once daily. atorvastatin (LIPITOR) 20 mg tablet Take 1 tablet by mouth daily at bedtime. sertraline (ZOLOFT) 100 mg tablet Take 1.5 tablets by mouth once daily. albuterol HFA (VENTOLIN HFA) 90 mcg/actuation inhaler inhale 2 puffs as directed every 4 hours if needed for wheezing or shortness of breath Blood-Glucose Meter (BLOOD GLUCOSE MONITORING) monitoring kit Test blood sugar(s) 1-2 times daily. Dx: Type 2 DM - Controlled E11.9 Insulin: No iv contrast (will be provided with radiology test) CT Urogram WO/W Inject, intravenously, once for 1 dose.No IV access, insert saline lock prior to the beginning of sedation, infusion, injection of imaging exam. Discontinue saline lock post exam. If Pt. has a central line or IVAD, may access for administration according to line specific nursing protocol. Once exam is complete flush line and de-access according to line specific nursing protocol in the CT contrast administration guidelines link. Current Facility-Administered Medications Medication Dose Route Frequency perflutren lipid microspheres 1.3 mL in NaCl (PF) 0.9% 10 mL injection (DEFINITY) INTRAVENOUS DIRECTED PRN sodium chloride 0.9 % (flush) 10 mL (BD POSIFLUSH) 10 mL INTRAVENOUS DIRECTED PRN ALLERGIES: ALLERGIES Allergen Reactions Incruse Ellipta [Um* GI Upset nausea Oxycodone Rash (percocet) PAST MEDICAL HISTORY Diagnosis Date Acute bronchitis Anxiety Chronic cough COPD (chronic obstructive pulmonary disease) (HCC) moderate, PFT 02/2016 Depression Diabetes mellitus without mention of complication Diabetes mellitus Elevated blood pressure Hypertension Intermittent cerebral ischemia Long-term memory loss Menopause Osteopenia 02/2016 Right wrist fracture TIA (transient ischemic attack) Tobacco use Wheezing PAST SURGICAL HISTORY Procedure Laterality Date APPENDECTOMY incidental DELIVERY ONLY , low transverse EXC CYST/ABERRANT BREAST TISSUE OPEN 1/> LESION OPEN REPAIR OF ROTATOR CUFF ACUTE Rotator cuff repair, L. PAST SURGICAL HISTORY OF benign mass from back TOTAL ABDOMINAL HYSTERECT W/WO RMVL TUBE OVARY Hysterectomy, ERLIN FAMILY HISTORY Problem Relation Age of Onset Coronary Artery Disease Father 70 s/p CABG Diabetes Mother Diabetes Father Cancer Maternal Aunt leukemia Social History Tobacco Use Smoking status: Every Day Packs/day: 0.25 Years: 47.00 Additional pack years: 0.00 Total pack years: 11.75 Types: Cigarettes Smokeless tobacco: Never Substance Use Topics Alcohol use: Yes Comment: rarely Drug use: No Reviewed current medications, allergies, past medical history, surgical history, family history and social history today. REVIEW OF SYSTEMS All other reviewed and negative other than HPI. VITALS: There were no vitals taken for this visit. Last 4 Encounter Wt Readings: Date: Wt: 02/21/2023 51.7 kg (114 lb) 12/27/2022 54.1 kg (119 lb 3.2 oz) 09/13/2022 53.5 kg (118 lb) 08/23/2022 52.6 kg (116 lb) PHYSICAL EXAMINATION: Patient is alert (more content not included)... [facility] 03-11-2023 History of Presen t illness Narrative No chief complaint on file. HPI:This Team Access Model visit is a virtual encounter. It required patient-provider interaction for the medical decision making as documented below. Patient has elected to have a visit through distance medicine I have communicated my name and active licensure. The patient's identity and physical location were verified at the time of this visit. Either the patient or their legal billing representative has been informed of the risks and benefits of -- and alternatives to -- treatment through a remote evaluation and consents to proceed with the evaluation remotely. Weaned off oxygen. Admitted to [facility] 02/24 to 02/26 Was not acting herself. Had elevated d dimer, white count. Had hyponatremia Her CT showed left sided pneumonia. Also had ? Pleural effusion. Added doxycycline Also placed on iron Her hb after hydration was down to 10.5.. was iron deficient on exam. No gi issues prior. No black or bloody stools. No gi pain, heartburn. No bowel changes. Her recent iron and ferritin levels last year were ok. Most recent hb is ok. Still weak. Still some shortness of breath but not as bad. No cough. No chest pain. She had a remote colonoscopy MEDICATIONS: Current Outpatient Medications Medication Sig metFORMIN (GLUCOPHAGE) 500 mg tablet Take 1 tablet by mouth daily with breakfast. clopidogrel (PLAVIX) 75 mg tablet Take 1 tablet by mouth once daily. Lancets lancets Test blood sugar(s) 1-2 times daily. Dx: Type 2 DM - Controlled E11.9 Insulin: No blood sugar diagnostic (BLOOD GLUCOSE TEST) test strip Test blood sugar(s) 1-2 times daily. Dx: Type 2 DM - Controlled E11.9 Insulin: No VERIO losartan (COZAAR) 25 mg tablet Take 1 tablet by mouth once daily. atorvastatin (LIPITOR) 20 mg tablet Take 1 tablet by mouth daily at bedtime. sertraline (ZOLOFT) 100 mg tablet Take 1.5 tablets by mouth once daily. albuterol HFA (VENTOLIN HFA) 90 mcg/actuation inhaler inhale 2 puffs as directed every 4 hours if needed for wheezing or shortness of breath Blood-Glucose Meter (BLOOD GLUCOSE MONITORING) monitoring kit Test blood sugar(s) 1-2 times daily. Dx: Type 2 DM - Controlled E11.9 Insulin: No iv contrast (will be provided with radiology test) CT Urogram WO/W Inject, intravenously, once for 1 dose.No IV access, insert saline lock prior to the beginning of sedation, infusion, injection of imaging exam. Discontinue saline lock post exam. If Pt. has a central line or IVAD, may access for administration according to line specific nursing protocol. Once exam is complete flush line and de-access according to line specific nursing protocol in the CT contrast administration guidelines link. Current Facility-Administered Medications Medication Dose Route Frequency perflutren lipid microspheres 1.3 mL in NaCl (PF) 0.9% 10 mL injection (DEFINITY) INTRAVENOUS DIRECTED PRN sodium chloride 0.9 % (flush) 10 mL (BD POSIFLUSH) 10 mL INTRAVENOUS DIRECTED PRN ALLERGIES: ALLERGIES Allergen Reactions Incruse Ellipta [Um* GI Upset nausea Oxycodone Rash (percocet) PAST MEDICAL HISTORY Diagnosis Date Acute bronchitis Anxiety Chronic cough COPD (chronic obstructive pulmonary disease) ([facility]) moderate, PFT 02/2016 Depression Diabetes mellitus without mention of complication Diabetes mellitus Elevated blood pressure Hypertension Intermittent cerebral ischemia Long-term memory loss Menopause Osteopenia 02/2016 Right wrist fracture TIA (transient ischemic attack) Tobacco use Wheezing PAST SURGICAL HISTORY Procedure Laterality Date APPENDECTOMY incidental DELIVERY ONLY , low transverse EXC CYST/ABERRANT BREAST TISSUE OPEN 1/> LESION OPEN REPAIR OF ROTATOR CUFF ACUTE Rotator cuff repair, L. PAST SURGICAL HISTORY OF benign mass from back TOTAL ABDOMINAL HYSTERECT W/WO RMVL TUBE OVARY Hysterectomy, ERLIN FAMILY HISTORY Problem Relation Age of Onset Coronary Artery Disease Father 70 s/p CABG Diabetes Mother Diabetes Father Cancer Maternal Aunt leukemia Social History Tobacco Use Smoking status: Every Day Packs/day: 0.25 Years: 47.00 Additional pack years: 0.00 Total pack years: 11.75 Types: Cigarettes Smokeless tobacco: Never Substance Use Topics Alcohol use: Yes Comment: rarely Drug use: No Reviewed current medications, allergies, past medical history, surgical history, family history and social history today. REVIEW OF SYSTEMS All other reviewed and negative other than HPI. VITALS: There were no vitals taken for this visit. Last 4 Encounter Wt Readings: Date: Wt: 02/21/2023 51.7 kg (114 lb) 12/27/2022 54.1 kg (119 lb 3.2 oz) 09/13/2022 53.5 kg (118 lb) 08/23/2022 52.6 kg (116 lb) PHYSICAL EXAMINATION: Patient is alert and oriented during visit. Answers appropriately. Breathing comfortably. ASSESSMENT/PLAN: 1. Bacterial pneumonia - ICD9: 482.9, ICD10: J15.9 (primary diagnosis) - recheck xray in two weeks. - XR CHEST 2V FRONTAL/LAT 2. Controlled type 2 diabetes mellitus without complication, without long-term current use of insulin ([facility]) - ICD9: 250.00, ICD10: E11.9 - stable. 3. Hypertension goal BP (blood pressure) < 150/90 - ICD9: 401.9, ICD10: I10 - Controlled - Continue current medications 4. Moderate COPD (chronic obstructive pulmonary disease) ([facility]) - ICD9: 496, ICD10: J44.9 - stable. 5. Iron deficiency Check labs in two weeks. Consider surgery referral. Discussed importance of surgical referral. Maryan Torrez RTO in four weeks or prn. documented in this encounter [facility] 02-28-2023 Note HNO ID: [id number] Author: Maryan Torrez MD Service: ? Author Type: Physician Type: Progress Notes Filed: 02/28/2023 11:47 AM Note Text: Patient presents with: Hospital F/U Admitted 02/24-02/16 at [facility] for pneumonia and hypoxia. Discussed on doxycycline and iron In hospital. Given chest xray, ct brain and cta cTA shows lingular and left upper lobe infiltrate. Also a small left lateral effusion. Desating on admission to low 80s Weaned off oxygen. White count improved. Did have some confusion attributed to her initial hypoxia but it resolved prior to discharge. Had therapy evaluations and did well. Was anemic in house as well. Hb 12.1. his is new. Iron was added on discharge. Patient did not connect via my chart. Left message to reschedule. [facility] 02-28-2023 History of Presen t illness Narrative Patient presents with: Hospital F/U Admitted 02/24-02/16 at [facility] for pneumonia and hypoxia. Discussed on doxycycline and iron In hospital. Given chest xray, ct brain and cta cTA shows lingular and left upper lobe infiltrate. Also a small left lateral effusion. Desating on admission to low 80s Weaned off oxygen. White count improved. Did have some confusion attributed to her initial hypoxia but it resolved prior to discharge. Had therapy evaluations and did well. Was anemic in house as well. Hb 12.1. his is new. Iron was added on discharge. Patient did not connect via my chart. Left message to reschedule. documented in this encounter [facility] 02-21-2023 Note HNO ID: [id number] Author: Henrietta Graham APRN.YONAS Service: ? Author Type: Nurse Practitioner Type: Progress Notes Filed: 02/21/2023 7:01 PM Note Text: Xray Chief Complaint Patient presents with: Follow Up: Medication follow up Derm Problem: Lump on left arm HPI Colton Montana is a 77 year old female who presents here today for Above Complaints.. Patient presents for lumpo on left arm. Patient fell outside about a month ago and had a skin tear. Skin tear healed well but there is a lump in the middle of the scar. Past medical history, appointments, medications, allergies reviewed. Previous Medical History PAST MEDICAL HISTORY Diagnosis Date Acute bronchitis Anxiety Chronic cough COPD (chronic obstructive pulmonary disease) (HCC) moderate, PFT 02/2016 Depression Diabetes mellitus without mention of complication Diabetes mellitus Elevated blood pressure Hypertension Intermittent cerebral ischemia Long-term memory loss Menopause Osteopenia 02/2016 Right wrist fracture TIA (transient ischemic attack) Tobacco use Wheezing Previous Surgical History PAST SURGICAL HISTORY Procedure Laterality Date APPENDECTOMY incidental DELIVERY ONLY , low transverse EXC CYST/ABERRANT BREAST TISSUE OPEN / LESION OPEN REPAIR OF ROTATOR CUFF ACUTE Rotator cuff repair, L. PAST SURGICAL HISTORY OF benign mass from back TOTAL ABDOMINAL HYSTERECT W/WO RMVL TUBE OVARY Hysterectomy, ERLIN Family History FAMILY HISTORY Problem Relation Age of Onset Coronary Artery Disease Father 70 s/p CABG Diabetes Mother Diabetes Father Cancer Maternal Aunt leukemia Patient Allergies ALLERGIES Allergen Reactions Incruse Ellipta [Um* GI Upset nausea Oxycodone Rash (percocet) Current Medications Current Outpatient Medications on File Prior to Visit Medication Sig albuterol HFA (VENTOLIN HFA) 90 mcg/actuation inhaler inhale 2 puffs as directed every 4 hours if needed for wheezing or shortness of breath atorvastatin (LIPITOR) 20 mg tablet Take 1 tablet by mouth daily at bedtime. blood sugar diagnostic (BLOOD GLUCOSE TEST) test strip Test blood sugar(s) 1-2 times daily. Dx: Type 2 DM - Controlled E11.9 Insulin: No VERIO Blood-Glucose Meter (BLOOD GLUCOSE MONITORING) monitoring kit Test blood sugar(s) 1-2 times daily. Dx: Type 2 DM - Controlled E11.9 Insulin: No clopidogrel (PLAVIX) 75 mg tablet Take 1 tablet by mouth once daily. iv contrast (will be provided with radiology test) CT Urogram WO/W Inject, intravenously, once for 1 dose.No IV access, insert saline lock prior to the beginning of sedation, infusion, injection of imaging exam. Discontinue saline lock post exam. If Pt. has a central line or IVAD, may access for administration according to line specific nursing protocol. Once exam is complete flush line and de-access according to line specific nursing protocol in the CT contrast administration guidelines link. Lancets lancets Test blood sugar(s) 1-2 times daily. Dx: Type 2 DM - Controlled E11.9 Insulin: No losartan (COZAAR) 25 mg tablet Take 1 tablet by mouth once daily. metFORMIN (GLUCOPHAGE) 500 mg tablet Take 1 tablet by mouth daily with breakfast. sertraline (ZOLOFT) 100 mg tablet Take 1.5 tablets by mouth once daily. Current Facility-Administered Medications on File Prior to Visit Medication perflutren lipid microspheres 1.3 mL in NaCl (PF) 0.9% 10 mL injection (DEFINITY) sodium chloride 0.9 % (flush) 10 mL (BD POSIFLUSH) Social History Social History Tobacco Use Smoking status: Every Day Packs/day: 0.25 Years: 47.00 Additional pack years: 0.00 Total pack years: 11.75 Types: Cigarettes Smokeless tobacco: Never Substance Use Topics Alcohol use: Yes Comment: rarely Drug use: No Review of Symptoms REVIEW OF SYSTEMS SEE HPI EXAM: BP 112/58 Pulse 84 Resp 14 Wt 51.7 kg (114 lb) BMI 20.52 kg/m? General Appearance: Well appearing, alert, in no acute distress, well-hydrated, well nourished.. Skin: Positives: Smal pea sized lump to left forearm, no redness, swelling. Patient reports pain with squeezing. Health Maintenance List Hepatitis B Vaccine(1 of 3 - Risk 3-dose series) Never done Influenza Vaccine(1) due on 01/11/2023 Covid-19 Vaccine( - 2022- season) due on 01/11/2023 DTaP,Tdap,Td Vaccine(1 - Tdap) due on 12/28/2023 Shingrix Vaccine(1 of 2) due on 12/28/2023 HbA1C due on 07/03/2023 Diabetic Foot Exam due on 12/28/2023 Annual PCP Team Chronic Disease Visit due on 12/28/2023 BP Controlled (<130/80) due on 12/28/2023 Urine Albumin:Creatinine Ratio due on 01/01/2024 LDL Cholesterol due on 01/01/2024 Dilated Retinal Exam due on 01/16/2024 Bone Density Screening Completed Spirometry Completed Advance Directive Discussion Completed Depression Assessment Completed Hepatitis C Screening Completed Pneumococcal Vaccine: 65+ Completed Mammogram Scree (more content not included)... [facility] 02-21-2023 History of Presen t illness Narrative Xray Chief Complaint Patient presents with: Follow Up: Medication follow up Derm Problem: Lump on left arm HPI Colton Montana is a 77 year old female who presents here today for Above Complaints.. Patient presents for lumpo on left arm. Patient fell outside about a month ago and had a skin tear. Skin tear healed well but there is a lump in the middle of the scar. Past medical history, appointments, medications, allergies reviewed. Previous Medical History PAST MEDICAL HISTORY Diagnosis Date Acute bronchitis Anxiety Chronic cough COPD (chronic obstructive pulmonary disease) (HCC) moderate, PFT 02/2016 Depression Diabetes mellitus without mention of complication Diabetes mellitus Elevated blood pressure Hypertension Intermittent cerebral ischemia Long-term memory loss Menopause Osteopenia 02/2016 Right wrist fracture TIA (transient ischemic attack) Tobacco use Wheezing Previous Surgical History PAST SURGICAL HISTORY Procedure Laterality Date APPENDECTOMY incidental DELIVERY ONLY , low transverse EXC CYST/ABERRANT BREAST TISSUE OPEN 1/> LESION OPEN REPAIR OF ROTATOR CUFF ACUTE Rotator cuff repair, L. PAST SURGICAL HISTORY OF benign mass from back TOTAL ABDOMINAL HYSTERECT W/WO RMVL TUBE OVARY Hysterectomy, ERLIN Family History FAMILY HISTORY Problem Relation Age of Onset Coronary Artery Disease Father 70 s/p CABG Diabetes Mother Diabetes Father Cancer Maternal Aunt leukemia Patient Allergies ALLERGIES Allergen Reactions Incruse Ellipta [Um* GI Upset nausea Oxycodone Rash (percocet) Current Medications Current Outpatient Medications on File Prior to Visit Medication Sig albuterol HFA (VENTOLIN HFA) 90 mcg/actuation inhaler inhale 2 puffs as directed every 4 hours if needed for wheezing or shortness of breath atorvastatin (LIPITOR) 20 mg tablet Take 1 tablet by mouth daily at bedtime. blood sugar diagnostic (BLOOD GLUCOSE TEST) test strip Test blood sugar(s) 1-2 times daily. Dx: Type 2 DM - Controlled E11.9 Insulin: No VERIO Blood-Glucose Meter (BLOOD GLUCOSE MONITORING) monitoring kit Test blood sugar(s) 1-2 times daily. Dx: Type 2 DM - Controlled E11.9 Insulin: No clopidogrel (PLAVIX) 75 mg tablet Take 1 tablet by mouth once daily. iv contrast (will be provided with radiology test) CT Urogram WO/W Inject, intravenously, once for 1 dose.No IV access, insert saline lock prior to the beginning of sedation, infusion, injection of imaging exam. Discontinue saline lock post exam. If Pt. has a central line or IVAD, may access for administration according to line specific nursing protocol. Once exam is complete flush line and de-access according to line specific nursing protocol in the CT contrast administration guidelines link. Lancets lancets Test blood sugar(s) 1-2 times daily. Dx: Type 2 DM - Controlled E11.9 Insulin: No losartan (COZAAR) 25 mg tablet Take 1 tablet by mouth once daily. metFORMIN (GLUCOPHAGE) 500 mg tablet Take 1 tablet by mouth daily with breakfast. sertraline (ZOLOFT) 100 mg tablet Take 1.5 tablets by mouth once daily. Current Facility-Administered Medications on File Prior to Visit Medication perflutren lipid microspheres 1.3 mL in NaCl (PF) 0.9% 10 mL injection (DEFINITY) sodium chloride 0.9 % (flush) 10 mL (BD POSIFLUSH) Social History Social History Tobacco Use Smoking status: Every Day Packs/day: 0.25 Years: 47.00 Additional pack years: 0.00 Total pack years: 11.75 Types: Cigarettes Smokeless tobacco: Never Substance Use Topics Alcohol use: Yes Comment: rarely Drug use: No Review of Symptoms REVIEW OF SYSTEMS SEE HPI EXAM: BP 112/58 Pulse 84 Resp 14 Wt 51.7 kg (114 lb) BMI 20.52 kg/m General Appearance: Well appearing, alert, in no acute distress, well-hydrated, well nourished.. Skin: Positives: Smal pea sized lump to left forearm, no redness, swelling. Patient reports pain with squeezing. Health Maintenance List Hepatitis B Vaccine(1 of 3 - Risk 3-dose series) Never done Influenza Vaccine(1) due on 01/11/2023 Covid-19 Vaccine(5 - 2022- season) due on 01/11/2023 DTaP,Tdap,Td Vaccine(1 - Tdap) due on 12/28/2023 Shingrix Vaccine(1 of 2) due on 12/28/2023 HbA1C due on 07/03/2023 Diabetic Foot Exam due on 12/28/2023 Annual PCP Team Chronic Disease Visit due on 12/28/2023 BP Controlled (<130/80) due on 12/28/2023 Urine Albumin:Creatinine Ratio due on 01/01/2024 LDL Cholesterol due on 01/01/2024 Dilated Retinal Exam due on 01/16/2024 Bone Density Screening Completed Spirometry Completed Advance Directive Discussion Completed Depression Assessment Completed Hepatitis C Screening Completed Pneumococcal Vaccine: 65+ Completed Mammogram Screening Discontinued Colorectal Cancer Screening Discontinued ASSESSMENT/PLAN: 1. Arm mass, left - ICD9: 782.2, ICD10: R22.32 -XR Forearm 2V left Henrietta Graham APRN.[employer] documented in this encounter [facility] 12-27-2022 Note HNO ID: [id number] Author: Maryan Torrez MD Service: ? Author Type: Physician Type: Progress Notes Filed: 12/27/2022 5:29 PM Note Text: Patient presents with: Follow Up HPI: Patient presents today for office visit for follow up. DM: Checking sugars usually twice a day According to our records last Metformin refill was on 06/12/22 for a 90 day supply only. She states she's been taking other family members Metformin whom no longer take it. No vision changes. Due for follow up in Jan. Denies foot lesions, numbness or pain No polyuria or polydipsia Due for labs Continues on Losartan for BP. Checks BP at home Stable. Runs low she says Denies chest pain and shortness of breath No dizziness. Will bring in home cuff and check. HLD: Continues on Atorvastatin No myalgias Psych: doing well. No issues with meds. Had cataract surgery on her eyes. Last echo showed mild to moderate aortic insufficiency in 12/01 MEDICATIONS: Current Outpatient Medications Medication Sig clopidogrel (PLAVIX) 75 mg tablet Take 1 tablet by mouth once daily. Lancets lancets Test blood sugar(s) 1-2 times daily. Dx: Type 2 DM - Controlled E11.9 Insulin: No blood sugar diagnostic (BLOOD GLUCOSE TEST) test strip Test blood sugar(s) 1-2 times daily. Dx: Type 2 DM - Controlled E11.9 Insulin: No VERIO metFORMIN (GLUCOPHAGE) 500 mg tablet Take 1 tablet by mouth daily with breakfast. losartan (COZAAR) 25 mg tablet Take 1 tablet by mouth once daily. atorvastatin (LIPITOR) 20 mg tablet Take 1 tablet by mouth daily at bedtime. sertraline (ZOLOFT) 100 mg tablet Take 1.5 tablets by mouth once daily. albuterol HFA (VENTOLIN HFA) 90 mcg/actuation inhaler inhale 2 puffs as directed every 4 hours if needed for wheezing or shortness of breath Blood-Glucose Meter (BLOOD GLUCOSE MONITORING) monitoring kit Test blood sugar(s) 1-2 times daily. Dx: Type 2 DM - Controlled E11.9 Insulin: No iv contrast (will be provided with radiology test) CT Urogram WO/W Inject, intravenously, once for 1 dose.No IV access, insert saline lock prior to the beginning of sedation, infusion, injection of imaging exam. Discontinue saline lock post exam. If Pt. has a central line or IVAD, may access for administration according to line specific nursing protocol. Once exam is complete flush line and de-access according to line specific nursing protocol in the CT contrast administration guidelines link. Current Facility-Administered Medications Medication Dose Route Frequency perflutren lipid microspheres 1.3 mL in NaCl (PF) 0.9% 10 mL injection (DEFINITY) INTRAVENOUS DIRECTED PRN sodium chloride 0.9 % (flush) 10 mL (BD POSIFLUSH) 10 mL INTRAVENOUS DIRECTED PRN ALLERGIES: ALLERGIES Allergen Reactions Incruse Ellipta [Um* GI Upset nausea Oxycodone Rash (percocet) PAST MEDICAL HISTORY Diagnosis Date Acute bronchitis Anxiety Chronic cough COPD (chronic obstructive pulmonary disease) (HCC) moderate, PFT 02/2016 Depression Diabetes mellitus without mention of complication Diabetes mellitus Elevated blood pressure Hypertension Intermittent cerebral ischemia Long-term memory loss Menopause Osteopenia 02/2016 Right wrist fracture TIA (transient ischemic attack) Tobacco use Wheezing PAST SURGICAL HISTORY Procedure Laterality Date APPENDECTOMY incidental DELIVERY ONLY , low transverse EXC CYST/ABERRANT BREAST TISSUE OPEN 1/> LESION OPEN REPAIR OF ROTATOR CUFF ACUTE Rotator cuff repair, L. PAST SURGICAL HISTORY OF benign mass from back TOTAL ABDOMINAL HYSTERECT W/WO RMVL TUBE OVARY Hysterectomy, ERLIN FAMILY HISTORY Problem Relation Age of Onset Coronary Artery Disease Father 70 s/p CABG Diabetes Mother Diabetes Father Cancer Maternal Aunt leukemia Social History Tobacco Use Smoking status: Every Day Packs/day: 0.25 Years: 47.00 Additional pack years: 0.00 Total pack years: 11.75 Types: Cigarettes Smokeless tobacco: Never Substance Use Topics Alcohol use: Yes Comment: rarely Drug use: No Discussed tobacco cessation, including risks of continued use. Offered assistance to help quit if patient desires. Reviewed current medications, allergies, past medical history, surgical history, family history and social history today. REVIEW OF SYSTEMS Some hair loss. No gi or gu issues. No falls. All other reviewed and negative other than HPI. HEALTH MAINTENANCE: Reviewed health maintenance issues today and recommended the following in detail. DTAP,TDAP,TD(1 - Tdap) Never done SHINGRIX VACCINE(1 of 2) Never done DILATED RETINAL EXAM -just had caracts done four months ago. PNEUMOCOCCAL: 65+(2 - PCV) due on 05/16/2017 DIABETIC FOOT EXAM due on 12/27/2019 URINE ALBUMIN:CREATININE RATIO due on 06/23/2021 HBA1C due on 10/21/2021 COVID-19 VACCINE(5 - Moderna series) due on 01/20/2022 LDL CHOLESTEROL due on 04/22/2022 (more content not included)... [facility] 12-10-2022 Miscellaneous Notes Patient has been identified by name and date of : Yes, Provider Dr Torrez Date 12/10/22 Time 1257. Daughter phones for refill(s): Requested Prescriptions Pending Prescriptions Disp Refills clopidogrel (PLAVIX) 75 mg tablet 90 tablet 2 Sig: Take 1 tablet by mouth once daily. Date of last office visit in primary care: 10/03/22 Future visit: none Last 2 Encounter Wt Readings: Date: Wt: 09/13/2022 53.5 kg (118 lb) 08/23/2022 52.6 kg (116 lb) Previous labs/tests for medication: Blood Pressure: BUN (mg/dL) Date Value 11/20/2021 19 04/27/2021 16 Sodium (mmol/L) Date Value 11/20/2021 134 04/27/2021 132 Last 1 Encounter BP Readings: Date: BP: 09/13/2022 128/66 Please advise. Thank you. Ivy Esqueda RN documented in this encounter [facility] 12-04-2022 Note Patient Outreach (JESSICA TNAV) COLTON MONTANA ([id number]) 1945 F Date Time Provider Department 12/04/22 RAGINI BAÑUELOS NETNAV During your visit today, we recorded the following information about you: Ragini Bañuelos MA 12/04/2022 1:14 PM Signed POPULATION HEALTH NAVIGATION OUTREACH Action/[facility] [employer] MESSAGE SENT ANNUAL MEDICARE WELLNESS URINE ALBUMIN:CREATININE RATIO due on 06/23/2021 HBA1C due on 10/21/2021 ADVANCE DIRECTIVE DISCUSSION Patient Identified by Name and : NO Outreach Outcome/Action Unable to reach patient: Left message Lock[employer] message sent Did you use a PCP flex slot to schedule this appointment? N/A Reason for Outreach Care Gap or Scheduling/Wellness visits Payer: Payor: MEDICARE / Plan: MEDICARE A AND B / Product Type: Medicare / Care Gap Reviewed:: Annual Wellness visit HBA1C Reminder: Reminder note to check Health Maintenance for items below Health Maintenance items due: DTAP,TDAP,TD(1 - Tdap) Never done SHINGRIX VACCINE(1 of 2) Never done DILATED RETINAL EXAM due on 03/29/2017 PNEUMOCOCCAL: 65+(2 - PCV) due on 05/16/2017 DIABETIC FOOT EXAM due on 12/27/2019 URINE ALBUMIN:CREATININE RATIO due on 06/23/2021 HBA1C due on 10/21/2021 COVID-19 VACCINE(5 - Moderna series) due on 01/20/2022 LDL CHOLESTEROL due on 04/22/2022 ADVANCE DIRECTIVE DISCUSSION Never done DEPRESSION ASSESSMENT Never done Navigation Signature: Ragini Bañuelos MA December 04, 2022 9:45 AM Allergies As of Date: 12/04/2022 Noted Allergy Reaction INCRUSE ELLIPTA (UMECLIDINIUM) 05/16/2016 8 - GI Upset Comments: nausea OXYCODONE 05/28/2011 2 - Rash Comments: (percocet) Date Reviewed: 09/13/2022 Reviewed by: Opal Pacheco Cma - Fully Assessed Reason for Visit: Population Health Navigation Outreach [[id number]] Cmt: KI PUGH PCSA Prescriptions as of 12/04/2022 - Lancets lancets Test blood sugar(s) 1-2 times daily. Dx: Type 2 DM - Controlled E11.9 Insulin: No - blood sugar diagnostic (BLOOD GLUCOSE TEST) test strip Test blood sugar(s) 1-2 times daily. Dx: Type 2 DM - Controlled E11.9 Insulin: No VERIO - clopidogrel (PLAVIX) 75 mg tablet Take 1 tablet by mouth once daily. - metFORMIN (GLUCOPHAGE) 500 mg tablet Take 1 tablet by mouth daily with breakfast. - losartan (COZAAR) 25 mg tablet Take 1 tablet by mouth once daily. - atorvastatin (LIPITOR) 20 mg tablet Take 1 tablet by mouth daily at bedtime. - sertraline (ZOLOFT) 100 mg tablet Take 1.5 tablets by mouth once daily. - albuterol HFA (VENTOLIN HFA) 90 mcg/actuation inhaler inhale 2 puffs as directed every 4 hours if needed for wheezing or shortness of breath - Blood-Glucose Meter (BLOOD GLUCOSE MONITORING) monitoring kit Test blood sugar(s) 1-2 times daily. Dx: Type 2 DM - Controlled E11.9 Insulin: No - iv contrast (will be provided with radiology test) CT Urogram WO/W Inject, intravenously, once for 1 dose.No IV access, insert saline lock prior to the beginning of sedation, infusion, injection of imaging exam. Discontinue saline lock post exam. If Pt. has a central line or IVAD, may access for administration according to line specific nursing protocol. Once exam is complete flush line and de-access according to line specific nursing protocol in the CT contrast administration guidelines link. Facility-Administered Medications as of 12/04/2022 - perflutren lipid microspheres 1.3 mL in NaCl (PF) 0.9% 10 mL injection (DEFINITY) - sodium chloride 0.9 % (flush) 10 mL (BD POSIFLUSH) Problem List As Of Date 12/04/2022 Noted Resolved Controlled type 2 diabetes mellitus without com*06/19/2011 TIA (transient ischemic attack) [G45.9] 03/01/2014 Hypertension goal BP (blood pressure) < 150/90 *03/15/2014 Hyperlipidemia [E78.5] 03/15/2014 12/26/2018 Tobacco use disorder [F17.200] 09/06/2015 Moderate COPD (chronic obstructive pulmonary di*09/05/2016 COPD with chronic bronchitis (HCC) [J44.9] 09/05/2016 12/26/2018 Mixed hyperlipidemia [E78.2] 04/17/2017 Kidney cysts [N28.1] 06/28/2020 Encounter Status:Closed by RAGINI BAÑUELOS on 12/04/22 [facility] 12-04-2022 Note HNO ID: [id number] Author: Ragini Bañuelos MA Service: ? Author Type: Wallpaper Cleaner Type: Progress Notes Filed: 12/04/2022 1:14 PM Note Text: POPULATION HEALTH NAVIGATION OUTREACH Action/[facility] [employer] MESSAGE SENT ANNUAL MEDICARE WELLNESS URINE ALBUMIN:CREATININE RATIO due on 06/23/2021 HBA1C due on 10/21/2021 ADVANCE DIRECTIVE DISCUSSION Patient Identified by Name and : NO Outreach Outcome/Action Unable to reach patient: Left message [employer] message sent Did you use a PCP flex slot to schedule this appointment? N/A Reason for Outreach Care Gap or Scheduling/Wellness visits Payer: Payor: MEDICARE / Plan: MEDICARE A AND B / Product Type: Medicare / Care Gap Reviewed:: Annual Wellness visit HBA1C Reminder: Reminder note to check Health Maintenance for items below Health Maintenance items due: DTAP,TDAP,TD(1 - Tdap) Never done SHINGRIX VACCINE(1 of 2) Never done DILATED RETINAL EXAM due on 03/29/2017 PNEUMOCOCCAL: 65+(2 - PCV) due on 05/16/2017 DIABETIC FOOT EXAM due on 12/27/2019 URINE ALBUMIN:CREATININE RATIO due on 06/23/2021 HBA1C due on 10/21/2021 COVID-19 VACCINE(5 - Moderna series) due on 01/20/2022 LDL CHOLESTEROL due on 04/22/2022 ADVANCE DIRECTIVE DISCUSSION Never done DEPRESSION ASSESSMENT Never done Navigation Signature: Ragini Bañuelos MA December 04, 2022 9:45 AM [facility] 09-13-2022 Note HNO ID: [id number] Author: Henrietta Graham APRN.USED CAR MANAGER Service: ? Author Type: Nurse Practitioner Type: Progress Notes Filed: 09/13/2022 3:27 PM Note Text: Chief Complaint Patient presents with: UTI HPI Colton Montana is a 77 year old female who presents here today for Above Complaints.. Patient presents with complaints of urinary frequency and urgency. Patient denies pain or fever. Past medical history, appointments, medications, allergies reviewed. Previous Medical History PAST MEDICAL HISTORY Diagnosis Date Acute bronchitis Anxiety Chronic cough COPD (chronic obstructive pulmonary disease) (HCC) moderate, PFT 02/2016 Depression Diabetes mellitus without mention of complication Diabetes mellitus Elevated blood pressure Hypertension Intermittent cerebral ischemia Long-term memory loss Menopause Osteopenia 02/2016 Right wrist fracture TIA (transient ischemic attack) Tobacco use Wheezing Previous Surgical History PAST SURGICAL HISTORY Procedure Laterality Date APPENDECTOMY incidental DELIVERY ONLY , low transverse EXC CYST/ABERRANT BREAST TISSUE OPEN 1/> LESION OPEN REPAIR OF ROTATOR CUFF ACUTE Rotator cuff repair, L. PAST SURGICAL HISTORY OF benign mass from back TOTAL ABDOMINAL HYSTERECT W/WO RMVL TUBE OVARY Hysterectomy, ERLIN Family History FAMILY HISTORY Problem Relation Age of Onset Coronary Artery Disease Father 70 s/p CABG Diabetes Mother Diabetes Father Cancer Maternal Aunt leukemia Patient Allergies ALLERGIES Allergen Reactions Incruse Ellipta [Um* GI Upset nausea Oxycodone Rash (percocet) Current Medications Current Outpatient Medications on File Prior to Visit Medication Sig Lancets lancets Test blood sugar(s) 1-2 times daily. Dx: Type 2 DM - Controlled E11.9 Insulin: No blood sugar diagnostic (BLOOD GLUCOSE TEST) test strip Test blood sugar(s) 1-2 times daily. Dx: Type 2 DM - Controlled E11.9 Insulin: No VERIO clopidogrel (PLAVIX) 75 mg tablet Take 1 tablet by mouth once daily. metFORMIN (GLUCOPHAGE) 500 mg tablet Take 1 tablet by mouth daily with breakfast. losartan (COZAAR) 25 mg tablet Take 1 tablet by mouth once daily. atorvastatin (LIPITOR) 20 mg tablet Take 1 tablet by mouth daily at bedtime. sertraline (ZOLOFT) 100 mg tablet Take 1.5 tablets by mouth once daily. albuterol HFA (VENTOLIN HFA) 90 mcg/actuation inhaler inhale 2 puffs as directed every 4 hours if needed for wheezing or shortness of breath Blood-Glucose Meter (BLOOD GLUCOSE MONITORING) monitoring kit Test blood sugar(s) 1-2 times daily. Dx: Type 2 DM - Controlled E11.9 Insulin: No iv contrast (will be provided with radiology test) CT Urogram WO/W Inject, intravenously, once for 1 dose.No IV access, insert saline lock prior to the beginning of sedation, infusion, injection of imaging exam. Discontinue saline lock post exam. If Pt. has a central line or IVAD, may access for administration according to line specific nursing protocol. Once exam is complete flush line and de-access according to line specific nursing protocol in the CT contrast administration guidelines link. Current Facility-Administered Medications on File Prior to Visit Medication perflutren lipid microspheres 1.3 mL in NaCl (PF) 0.9% 10 mL injection (DEFINITY) sodium chloride 0.9 % (flush) 10 mL (BD POSIFLUSH) Social History Social History Tobacco Use Smoking status: Every Day Packs/day: 0.25 Years: 47.00 Pack years: 11.75 Types: Cigarettes Smokeless tobacco: Never Substance Use Topics Alcohol use: Yes Comment: rarely Drug use: No Review of Symptoms REVIEW OF SYSTEMS SEE HPI EXAM: BP 128/66 Pulse 82 Resp 16 Wt 53.5 kg (118 lb) BMI 21.24 kg/m? General Appearance: Well appearing, alert, in no acute distress, well-hydrated, well nourished.. Abdomen: Normal abdominal exam, Abdomen soft, non-tender. Bowel sounds normal. No masses, organomegaly. Health Maintenance List BP CONTROLLED (<130/80) Never done DTAP,TDAP,TD(1 - Tdap) Never done SHINGRIX VACCINE(1 of 2) Never done DILATED RETINAL EXAM due on 03/29/2017 PNEUMOCOCCAL: 65+(2 - PCV) due on 05/16/2017 DIABETIC FOOT EXAM due on 12/27/2019 URINE ALBUMIN:CREATININE RATIO due on 06/23/2021 HBA1C due on 10/21/2021 COVID-19 VACCINE(5 - Booster for Moderna series) due on 01/20/2022 LDL CHOLESTEROL due on 04/22/2022 ADVANCE DIRECTIVE DISCUSSION Never done DEPRESSION ASSESSMENT Never done ANNUAL PCP TEAM CHRONIC DISEASE VISIT due on 08/24/2023 BONE DENSITY Completed SPIROMETRY Completed INFLUENZA Completed HEPATITIS C SCREENING Completed ASSESSMENT/PLAN: 1. Urinary frequency - ICD9: 788.41, ICD10: R35.0 (primary diagnosis) - UA DIP, URINE (POC) - URINE CULTURE 2. Urinary tract infection with hematuria, site unspecified - ICD9: 599.0, 599.70, ICD10: N39.0, R31.9 acute - UA positive for rose esterase, hematuria, and nitra (more content not included)... [facility] 09-13-2022 Instructions Henrietta Graham APRN.CNP - 09/13/2022 3:27 PM EDT Start keflex Follow up if no improvement in 7 days documented in this encounter [facility] 09-13-2022 History of Presen t illness Narrative Chief Complaint Patient presents with: UTI HPI Colton Montana is a 77 year old female who presents here today for Above Complaints.. Patient presents with complaints of urinary frequency and urgency. Patient denies pain or fever. Past medical history, appointments, medications, allergies reviewed. Previous Medical History PAST MEDICAL HISTORY Diagnosis Date Acute bronchitis Anxiety Chronic cough COPD (chronic obstructive pulmonary disease) (HCC) moderate, PFT 02/2016 Depression Diabetes mellitus without mention of complication Diabetes mellitus Elevated blood pressure Hypertension Intermittent cerebral ischemia Long-term memory loss Menopause Osteopenia 02/2016 Right wrist fracture TIA (transient ischemic attack) Tobacco use Wheezing Previous Surgical History PAST SURGICAL HISTORY Procedure Laterality Date APPENDECTOMY incidental DELIVERY ONLY , low transverse EXC CYST/ABERRANT BREAST TISSUE OPEN 1/> LESION OPEN REPAIR OF ROTATOR CUFF ACUTE Rotator cuff repair, L. PAST SURGICAL HISTORY OF benign mass from back TOTAL ABDOMINAL HYSTERECT W/WO RMVL TUBE OVARY Hysterectomy, ERLIN Family History FAMILY HISTORY Problem Relation Age of Onset Coronary Artery Disease Father 70 s/p CABG Diabetes Mother Diabetes Father Cancer Maternal Aunt leukemia Patient Allergies ALLERGIES Allergen Reactions Incruse Ellipta [Um* GI Upset nausea Oxycodone Rash (percocet) Current Medications Current Outpatient Medications on File Prior to Visit Medication Sig Lancets lancets Test blood sugar(s) 1-2 times daily. Dx: Type 2 DM - Controlled E11.9 Insulin: No blood sugar diagnostic (BLOOD GLUCOSE TEST) test strip Test blood sugar(s) 1-2 times daily. Dx: Type 2 DM - Controlled E11.9 Insulin: No VERIO clopidogrel (PLAVIX) 75 mg tablet Take 1 tablet by mouth once daily. metFORMIN (GLUCOPHAGE) 500 mg tablet Take 1 tablet by mouth daily with breakfast. losartan (COZAAR) 25 mg tablet Take 1 tablet by mouth once daily. atorvastatin (LIPITOR) 20 mg tablet Take 1 tablet by mouth daily at bedtime. sertraline (ZOLOFT) 100 mg tablet Take 1.5 tablets by mouth once daily. albuterol HFA (VENTOLIN HFA) 90 mcg/actuation inhaler inhale 2 puffs as directed every 4 hours if needed for wheezing or shortness of breath Blood-Glucose Meter (BLOOD GLUCOSE MONITORING) monitoring kit Test blood sugar(s) 1-2 times daily. Dx: Type 2 DM - Controlled E11.9 Insulin: No iv contrast (will be provided with radiology test) CT Urogram WO/W Inject, intravenously, once for 1 dose.No IV access, insert saline lock prior to the beginning of sedation, infusion, injection of imaging exam. Discontinue saline lock post exam. If Pt. has a central line or IVAD, may access for administration according to line specific nursing protocol. Once exam is complete flush line and de-access according to line specific nursing protocol in the CT contrast administration guidelines link. Current Facility-Administered Medications on File Prior to Visit Medication perflutren lipid microspheres 1.3 mL in NaCl (PF) 0.9% 10 mL injection (DEFINITY) sodium chloride 0.9 % (flush) 10 mL (BD POSIFLUSH) Social History Social History Tobacco Use Smoking status: Every Day Packs/day: 0.25 Years: 47.00 Pack years: 11.75 Types: Cigarettes Smokeless tobacco: Never Substance Use Topics Alcohol use: Yes Comment: rarely Drug use: No Review of Symptoms REVIEW OF SYSTEMS SEE HPI EXAM: BP 128/66 Pulse 82 Resp 16 Wt 53.5 kg (118 lb) BMI 21.24 kg/m General Appearance: Well appearing, alert, in no acute distress, well-hydrated, well nourished.. Abdomen: Normal abdominal exam, Abdomen soft, non-tender. Bowel sounds normal. No masses, organomegaly. Health Maintenance List BP CONTROLLED (<130/80) Never done DTAP,TDAP,TD(1 - Tdap) Never done SHINGRIX VACCINE(1 of 2) Never done DILATED RETINAL EXAM due on 03/29/2017 PNEUMOCOCCAL: 65+(2 - PCV) due on 05/16/2017 DIABETIC FOOT EXAM due on 12/27/2019 URINE ALBUMIN:CREATININE RATIO due on 06/23/2021 HBA1C due on 10/21/2021 COVID-19 VACCINE(5 - Booster for Moderna series) due on 01/20/2022 LDL CHOLESTEROL due on 04/22/2022 ADVANCE DIRECTIVE DISCUSSION Never done DEPRESSION ASSESSMENT Never done ANNUAL PCP TEAM CHRONIC DISEASE VISIT due on 08/24/2023 BONE DENSITY Completed SPIROMETRY Completed INFLUENZA Completed HEPATITIS C SCREENING Completed ASSESSMENT/PLAN: 1. Urinary frequency - ICD9: 788.41, ICD10: R35.0 (primary diagnosis) - UA DIP, URINE (POC) - URINE CULTURE 2. Urinary tract infection with hematuria, site unspecified - ICD9: 599.0, 599.70, ICD10: N39.0, R31.9 acute - UA positive for rose esterase, hematuria, and nitrates - Send urine for culture - Begin treatment with keflex for 7 days - Patient education for prevention given Henrietta Graham APRN.YONAS documented in this encounter [facility] 09-13-2022 Miscellaneous Notes Patient phones requesting refills as follows: Patient comment: can you please change this to a year of refills. Last time you did a one time 90 day supply. keep the 90 days but add three refills please. Requested Prescriptions Pending Prescriptions Disp Refills Lancets lancets 100 Each 11 Sig: Test blood sugar(s) 1-2 times daily. Dx: Type 2 DM - Controlled E11.9 Insulin: No blood sugar diagnostic (BLOOD GLUCOSE TEST) test strip 50 Strip 11 Sig: Test blood sugar(s) 1-2 times daily. Dx: Type 2 DM - Controlled E11.9 Insulin: No VERIO clopidogrel (PLAVIX) 75 mg tablet 90 tablet 0 Sig: Take 1 tablet by mouth once daily. JULIO-06/13/22 Labs-11/20/21 NOV-09/13/22 Please review and advise. Yokasta Montano LPN documented in this encounter [facility] 08-27-2022 Miscellaneous Notes Patient daughter notified and verbalized understanding Opal Pacheco Cma Please let patient know her culture shows E coli and the antibiotic I prescribed is effective. documented in this encounter [facility] 08-23-2022 Note HNO ID: [id number] Author: Henrietta Graham APRN.YONAS Service: ? Author Type: Nurse Practitioner Type: Progress Notes Filed: 08/23/2022 2:39 PM Note Text: Chief Complaint No chief complaint on file. HPI Colton Montana is a 77 year old female who presents here today for Above Complaints.. Patient presents with urinary complaints. Patient states she has been having burning and frequency with urination since . Denies fever, urgency. Past medical history, appointments, medications, allergies reviewed. Previous Medical History PAST MEDICAL HISTORY Diagnosis Date Acute bronchitis Anxiety Chronic cough COPD (chronic obstructive pulmonary disease) ([facility]) moderate, PFT 02/2016 Depression Diabetes mellitus without mention of complication Diabetes mellitus Elevated blood pressure Hypertension Intermittent cerebral ischemia Long-term memory loss Menopause Osteopenia 02/2016 Right wrist fracture TIA (transient ischemic attack) Tobacco use Wheezing Previous Surgical History PAST SURGICAL HISTORY Procedure Laterality Date APPENDECTOMY incidental DELIVERY ONLY , low transverse EXC CYST/ABERRANT BREAST TISSUE OPEN 1/> LESION OPEN REPAIR OF ROTATOR CUFF ACUTE Rotator cuff repair, L. PAST SURGICAL HISTORY OF benign mass from back TOTAL ABDOMINAL HYSTERECT W/WO RMVL TUBE OVARY Hysterectomy, ERLIN Family History FAMILY HISTORY Problem Relation Age of Onset Coronary Artery Disease Father 70 s/p CABG Diabetes Mother Diabetes Father Cancer Maternal Aunt leukemia Patient Allergies ALLERGIES Allergen Reactions Incruse Ellipta [Um* GI Upset nausea Oxycodone Rash (percocet) Current Medications Current Outpatient Medications on File Prior to Visit Medication Sig metFORMIN (GLUCOPHAGE) 500 mg tablet Take 1 tablet by mouth daily with breakfast. clopidogrel (PLAVIX) 75 mg tablet Take 1 tablet by mouth once daily. losartan (COZAAR) 25 mg tablet Take 1 tablet by mouth once daily. atorvastatin (LIPITOR) 20 mg tablet Take 1 tablet by mouth daily at bedtime. sertraline (ZOLOFT) 100 mg tablet Take 1.5 tablets by mouth once daily. albuterol HFA (VENTOLIN HFA) 90 mcg/actuation inhaler inhale 2 puffs as directed every 4 hours if needed for wheezing or shortness of breath blood sugar diagnostic (BLOOD GLUCOSE TEST) test strip Test blood sugar(s) 1-2 times daily. Dx: Type 2 DM - Controlled E11.9 Insulin: No VERIO Blood-Glucose Meter (BLOOD GLUCOSE MONITORING) monitoring kit Test blood sugar(s) 1-2 times daily. Dx: Type 2 DM - Controlled E11.9 Insulin: No Lancets lancets Test blood sugar(s) 1-2 times daily. Dx: Type 2 DM - Controlled E11.9 Insulin: No iv contrast (will be provided with radiology test) CT Urogram WO/W Inject, intravenously, once for 1 dose.No IV access, insert saline lock prior to the beginning of sedation, infusion, injection of imaging exam. Discontinue saline lock post exam. If Pt. has a central line or IVAD, may access for administration according to line specific nursing protocol. Once exam is complete flush line and de-access according to line specific nursing protocol in the CT contrast administration guidelines link. Current Facility-Administered Medications on File Prior to Visit Medication perflutren lipid microspheres 1.3 mL in NaCl (PF) 0.9% 10 mL injection (DEFINITY) sodium chloride 0.9 % (flush) 10 mL (BD POSIFLUSH) Social History Social History Tobacco Use Smoking status: Every Day Packs/day: 0.25 Years: 47.00 Pack years: 11.75 Types: Cigarettes Smokeless tobacco: Never Substance Use Topics Alcohol use: Yes Comment: rarely Drug use: No Review of Symptoms REVIEW OF SYSTEMS SEE HPI EXAM: There were no vitals taken for this visit. General Appearance: Well appearing, alert, in no acute distress, well-hydrated, well nourished.. Abdomen: Normal abdominal exam, Abdomen soft, non-tender. Bowel sounds normal. No masses, organomegaly. Health Maintenance List BP CONTROLLED (<130/80) Never done DTAP,TDAP,TD(1 - Tdap) Never done SHINGRIX VACCINE(1 of 2) Never done DILATED RETINAL EXAM due on 03/29/2017 PNEUMOCOCCAL: 65+(2 - PCV) due on 05/16/2017 DIABETIC FOOT EXAM due on 12/27/2019 URINE ALBUMIN:CREATININE RATIO due on 06/23/2021 HBA1C due on 10/21/2021 COVID-19 VACCINE(5 - Booster for Moderna series) due on 01/20/2022 LDL CHOLESTEROL due on 04/22/2022 ADVANCE DIRECTIVE DISCUSSION Never done DEPRESSION ASSESSMENT Never done ANNUAL PCP TEAM CHRONIC DISEASE VISIT due on 06/13/2023 BONE DENSITY Completed SPIROMETRY Completed INFLUENZA Completed HEPATITIS C SCREENING Completed ASSESSMENT/PLAN: 1. Urinary tract infection with hematuria, site unspecified - ICD9: 599.0, 599.70, ICD10: N39.0, R31.9 acute - UA positive for rose esterase, hematuria, proteinuria, and nitrates - Send urine for culture - Begin treatment with Macrobid 100 mg BID for (more content not included)... [facility] 08-23-2022 Instructions Henrietta Graham APRN.CNP - 08/23/2022 2:37 PM EDT Start macrobid Will call urine culture results when received Hold plavix tomorrow may restart on Friday 08/25 Follow up as needed documented in this encounter [facility] 08-23-2022 History of Presen t illness Narrative Chief Complaint No chief complaint on file. HPI Colton Montana is a 77 year old female who presents here today for Above Complaints.. Patient presents with urinary complaints. Patient states she has been having burning and frequency with urination since . Denies fever, urgency. Past medical history, appointments, medications, allergies reviewed. Previous Medical History PAST MEDICAL HISTORY Diagnosis Date Acute bronchitis Anxiety Chronic cough COPD (chronic obstructive pulmonary disease) (HCC) moderate, PFT 02/2016 Depression Diabetes mellitus without mention of complication Diabetes mellitus Elevated blood pressure Hypertension Intermittent cerebral ischemia Long-term memory loss Menopause Osteopenia 02/2016 Right wrist fracture TIA (transient ischemic attack) Tobacco use Wheezing Previous Surgical History PAST SURGICAL HISTORY Procedure Laterality Date APPENDECTOMY incidental DELIVERY ONLY , low transverse EXC CYST/ABERRANT BREAST TISSUE OPEN 1/> LESION OPEN REPAIR OF ROTATOR CUFF ACUTE Rotator cuff repair, L. PAST SURGICAL HISTORY OF benign mass from back TOTAL ABDOMINAL HYSTERECT W/WO RMVL TUBE OVARY Hysterectomy, ERLIN Family History FAMILY HISTORY Problem Relation Age of Onset Coronary Artery Disease Father 70 s/p CABG Diabetes Mother Diabetes Father Cancer Maternal Aunt leukemia Patient Allergies ALLERGIES Allergen Reactions Incruse Ellipta [Um* GI Upset nausea Oxycodone Rash (percocet) Current Medications Current Outpatient Medications on File Prior to Visit Medication Sig metFORMIN (GLUCOPHAGE) 500 mg tablet Take 1 tablet by mouth daily with breakfast. clopidogrel (PLAVIX) 75 mg tablet Take 1 tablet by mouth once daily. losartan (COZAAR) 25 mg tablet Take 1 tablet by mouth once daily. atorvastatin (LIPITOR) 20 mg tablet Take 1 tablet by mouth daily at bedtime. sertraline (ZOLOFT) 100 mg tablet Take 1.5 tablets by mouth once daily. albuterol HFA (VENTOLIN HFA) 90 mcg/actuation inhaler inhale 2 puffs as directed every 4 hours if needed for wheezing or shortness of breath blood sugar diagnostic (BLOOD GLUCOSE TEST) test strip Test blood sugar(s) 1-2 times daily. Dx: Type 2 DM - Controlled E11.9 Insulin: No VERIO Blood-Glucose Meter (BLOOD GLUCOSE MONITORING) monitoring kit Test blood sugar(s) 1-2 times daily. Dx: Type 2 DM - Controlled E11.9 Insulin: No Lancets lancets Test blood sugar(s) 1-2 times daily. Dx: Type 2 DM - Controlled E11.9 Insulin: No iv contrast (will be provided with radiology test) CT Urogram WO/W Inject, intravenously, once for 1 dose.No IV access, insert saline lock prior to the beginning of sedation, infusion, injection of imaging exam. Discontinue saline lock post exam. If Pt. has a central line or IVAD, may access for administration according to line specific nursing protocol. Once exam is complete flush line and de-access according to line specific nursing protocol in the CT contrast administration guidelines link. Current Facility-Administered Medications on File Prior to Visit Medication perflutren lipid microspheres 1.3 mL in NaCl (PF) 0.9% 10 mL injection (DEFINITY) sodium chloride 0.9 % (flush) 10 mL (BD POSIFLUSH) Social History Social History Tobacco Use Smoking status: Every Day Packs/day: 0.25 Years: 47.00 Pack years: 11.75 Types: Cigarettes Smokeless tobacco: Never Substance Use Topics Alcohol use: Yes Comment: rarely Drug use: No Review of Symptoms REVIEW OF SYSTEMS SEE HPI EXAM: There were no vitals taken for this visit. General Appearance: Well appearing, alert, in no acute distress, well-hydrated, well nourished.. Abdomen: Normal abdominal exam, Abdomen soft, non-tender. Bowel sounds normal. No masses, organomegaly. Health Maintenance List BP CONTROLLED (<130/80) Never done DTAP,TDAP,TD(1 - Tdap) Never done SHINGRIX VACCINE(1 of 2) Never done DILATED RETINAL EXAM due on 03/29/2017 PNEUMOCOCCAL: 65+(2 - PCV) due on 05/16/2017 DIABETIC FOOT EXAM due on 12/27/2019 URINE ALBUMIN:CREATININE RATIO due on 06/23/2021 HBA1C due on 10/21/2021 COVID-19 VACCINE(5 - Booster for Moderna series) due on 01/20/2022 LDL CHOLESTEROL due on 04/22/2022 ADVANCE DIRECTIVE DISCUSSION Never done DEPRESSION ASSESSMENT Never done ANNUAL PCP TEAM CHRONIC DISEASE VISIT due on 06/13/2023 BONE DENSITY Completed SPIROMETRY Completed INFLUENZA Completed HEPATITIS C SCREENING Completed ASSESSMENT/PLAN: 1. Urinary tract infection with hematuria, site unspecified - ICD9: 599.0, 599.70, ICD10: N39.0, R31.9 acute - UA positive for rose esterase, hematuria, proteinuria, and nitrates - Send urine for culture - Begin treatment with Macrobid 100 mg BID for 7 days - Patient education for prevention given - UA DIP, URINE (POC) - URINE CULTURE - NITROFURANTOIN MONOHYDRATE & MACROCRYSTAL 100 MG ORAL CAP Hold plavix tomorrow 08/24. May restart plavix 08/25.Patient to notify PCP if any blood seen in urine. Henrietta Graham APRN.YONAS documented in this encounter [facility] 08-14-2022 Note Patient Outreach (NE TNAV) LEO MONTANAMili Dixon ([id number]) 1945 F Date Time Provider Department 08/14/22 RAGINI BAÑUELOS During your visit today, we recorded the following information about you: Ragini Bañuelos MA 08/14/2022 12:19 PM Signed POPULATION HEALTH NAVIGATION OUTREACH Action/FYI [facility] [employer] MESSAGE SENT J44.9 - Moderate COPD (chronic obstructive pulmonary disease) ([facility]) - [id number] Last Billed 11/21/2021 E11.9 - Controlled type 2 diabetes mellitus without complication, without long-term current use of insulin ([facility]) - [id number] Last Billed 04/28/2021 ANNUAL MEDICARE WELLNESS BP CONTROLLED (<130/80) Never done DILATED RETINAL EXAM due on 03/29/2017 URINE ALBUMIN:CREATININE RATIO due on 06/23/2021 HBA1C due on 10/21/2021 ADVANCE DIRECTIVE DISCUSSION Never done Patient Identified by Name and : NO Outreach Outcome/Action Unable to reach patient: Left message Lock[employer] message sent Did you use a PCP flex slot to schedule this appointment? N/A Reason for Outreach Care Gap or Scheduling/Wellness visits Payer: Payor: MEDICARE / Plan: MEDICARE A AND B / Product Type: Medicare / Care Gap Reviewed:: Annual Wellness visit Controlling Blood Pressure Diabetic Eye Exam HBA1C Nephropathy (Albumin/Creatinine) Urine Reminder: Reminder note to check Health Maintenance for items below Health Maintenance items due: BP CONTROLLED (<130/80) Never done DTAP,TDAP,TD(1 - Tdap) Never done SHINGRIX VACCINE(1 of 2) Never done DILATED RETINAL EXAM due on 03/29/2017 PNEUMOCOCCAL: 65+(2 - PCV) due on 05/16/2017 DIABETIC FOOT EXAM due on 12/27/2019 URINE ALBUMIN:CREATININE RATIO due on 06/23/2021 HBA1C due on 10/21/2021 COVID-19 VACCINE(5 - Booster for Moderna series) due on 01/20/2022 LDL CHOLESTEROL due on 04/22/2022 ADVANCE DIRECTIVE DISCUSSION Never done DEPRESSION ASSESSMENT Never done Navigation Signature: Ragini Bañuelos MA August 14, 2022 8:04 AM Allergies As of Date: 08/14/2022 Noted Allergy Reaction INCRUSE ELLIPTA (UMECLIDINIUM) 05/16/2016 8 - GI Upset Comments: nausea OXYCODONE 05/28/2011 2 - Rash Comments: (percocet) Date Reviewed: 06/13/2022 Reviewed by: Magen Obrien LPN - Fully Assessed Reason for Visit: Population Health Navigation Outreach [3910] Cmt: HCC GAPS Prescriptions as of 08/14/2022 - metFORMIN (GLUCOPHAGE) 500 mg tablet Take 1 tablet by mouth daily with breakfast. - clopidogrel (PLAVIX) 75 mg tablet Take 1 tablet by mouth once daily. - losartan (COZAAR) 25 mg tablet Take 1 tablet by mouth once daily. - atorvastatin (LIPITOR) 20 mg tablet Take 1 tablet by mouth daily at bedtime. - sertraline (ZOLOFT) 100 mg tablet Take 1.5 tablets by mouth once daily. - albuterol HFA (VENTOLIN HFA) 90 mcg/actuation inhaler inhale 2 puffs as directed every 4 hours if needed for wheezing or shortness of breath - blood sugar diagnostic (BLOOD GLUCOSE TEST) test strip Test blood sugar(s) 1-2 times daily. Dx: Type 2 DM - Controlled E11.9 Insulin: No VERIO - Blood-Glucose Meter (BLOOD GLUCOSE MONITORING) monitoring kit Test blood sugar(s) 1-2 times daily. Dx: Type 2 DM - Controlled E11.9 Insulin: No - Lancets lancets Test blood sugar(s) 1-2 times daily. Dx: Type 2 DM - Controlled E11.9 Insulin: No - iv contrast (will be provided with radiology test) CT Urogram WO/W Inject, intravenously, once for 1 dose.No IV access, insert saline lock prior to the beginning of sedation, infusion, injection of imaging exam. Discontinue saline lock post exam. If Pt. has a central line or IVAD, may access for administration according to line specific nursing protocol. Once exam is complete flush line and de-access according to line specific nursing protocol in the CT contrast administration guidelines link. Facility-Administered Medications as of 08/14/2022 - perflutren lipid microspheres 1.3 mL in NaCl (PF) 0.9% 10 mL injection (DEFINITY) - sodium chloride 0.9 % (flush) 10 mL (BD POSIFLUSH) Problem List As Of Date 08/14/2022 Noted Resolved Controlled type 2 diabetes mellitus without com*06/19/2011 TIA (transient ischemic attack) [G45.9] 03/01/2014 Hypertension goal BP (blood pressure) < 150/90 *03/15/2014 Hyperlipidemia [E78.5] 03/15/2014 12/26/2018 Tobacco use disorder [F17.200] 09/06/2015 Moderate COPD (chronic obstructive pulmonary di*09/05/2016 COPD with chronic bronchitis (HCC) [J44.9] 09/05/2016 12/26/2018 Mixed hyperlipidemia [E78.2] 04/17/2017 Kidney cysts [N28.1] 06/28/2020 Encounter Status:Closed by RAGINI BAÑUELOS on 08/14/22 [facility] 08-14-2022 Note HNO ID: [id number] Author: Ragini Bañuelos MA Service: ? Author Type: Wallpaper Cleaner Type: Progress Notes Filed: 08/14/2022 12:19 PM Note Text: POPULATION HEALTH NAVIGATION OUTREACH Action/FYI [facility] [employer] MESSAGE SENT J44.9 - Moderate COPD (chronic obstructive pulmonary disease) (HCC) - [id number] Last Billed 11/21/2021 E11.9 - Controlled type 2 diabetes mellitus without complication, without long-term current use of insulin (HCC) - [id number] Last Billed 04/28/2021 ANNUAL MEDICARE WELLNESS BP CONTROLLED (<130/80) Never done DILATED RETINAL EXAM due on 03/29/2017 URINE ALBUMIN:CREATININE RATIO due on 06/23/2021 HBA1C due on 10/21/2021 ADVANCE DIRECTIVE DISCUSSION Never done Patient Identified by Name and : NO Outreach Outcome/Action Unable to reach patient: Left message [employer] message sent Did you use a PCP flex slot to schedule this appointment? N/A Reason for Outreach Care Gap or Scheduling/Wellness visits Payer: Payor: MEDICARE / Plan: MEDICARE A AND B / Product Type: Medicare / Care Gap Reviewed:: Annual Wellness visit Controlling Blood Pressure Diabetic Eye Exam HBA1C Nephropathy (Albumin/Creatinine) Urine Reminder: Reminder note to check Health Maintenance for items below Health Maintenance items due: BP CONTROLLED (<130/80) Never done DTAP,TDAP,TD(1 - Tdap) Never done SHINGRIX VACCINE(1 of 2) Never done DILATED RETINAL EXAM due on 03/29/2017 PNEUMOCOCCAL: 65+(2 - PCV) due on 05/16/2017 DIABETIC FOOT EXAM due on 12/27/2019 URINE ALBUMIN:CREATININE RATIO due on 06/23/2021 HBA1C due on 10/21/2021 COVID-19 VACCINE(5 - Booster for Moderna series) due on 01/20/2022 LDL CHOLESTEROL due on 04/22/2022 ADVANCE DIRECTIVE DISCUSSION Never done DEPRESSION ASSESSMENT Never done Navigation Signature: Ragini Bañuelos MA August 14, 2022 8:04 AM [facility] 08-14-2022 History of Presen t illness Narrative POPULATION HEALTH NAVIGATION OUTREACH Action/FYI [facility] [employer] MESSAGE SENT J44.9 - Moderate COPD (chronic obstructive pulmonary disease) ([facility]) - [id number] Last Billed 11/21/2021 E11.9 - Controlled type 2 diabetes mellitus without complication, without long-term current use of insulin ([facility]) - [id number] Last Billed 04/28/2021 ANNUAL MEDICARE WELLNESS BP CONTROLLED (<130/80) Never done DILATED RETINAL EXAM due on 03/29/2017 URINE ALBUMIN:CREATININE RATIO due on 06/23/2021 HBA1C due on 10/21/2021 ADVANCE DIRECTIVE DISCUSSION Never done Patient Identified by Name and : NO Outreach Outcome/Action Unable to reach patient: Left message Lockrt message sent Did you use a PCP flex slot to schedule this appointment? N/A Reason for Outreach Care Gap or Scheduling/Wellness visits Payer: Payor: MEDICARE / Plan: MEDICARE A AND B / Product Type: Medicare / Care Gap Reviewed:: Annual Wellness visit Controlling Blood Pressure Diabetic Eye Exam HBA1C Nephropathy (Albumin/Creatinine) Urine Reminder: Reminder note to check Health Maintenance for items below Health Maintenance items due: BP CONTROLLED (<130/80) Never done DTAP,TDAP,TD(1 - Tdap) Never done SHINGRIX VACCINE(1 of 2) Never done DILATED RETINAL EXAM due on 03/29/2017 PNEUMOCOCCAL: 65+(2 - PCV) due on 05/16/2017 DIABETIC FOOT EXAM due on 12/27/2019 URINE ALBUMIN:CREATININE RATIO due on 06/23/2021 HBA1C due on 10/21/2021 COVID-19 VACCINE(5 - Booster for Moderna series) due on 01/20/2022 LDL CHOLESTEROL due on 04/22/2022 ADVANCE DIRECTIVE DISCUSSION Never done DEPRESSION ASSESSMENT Never done Navigation Signature: Ragini Bañuelos MA August 14, 2022 8:04 AM documented in this encounter [facility] 06-20-2022 Miscellaneous Notes Phoned pt, notified of provider response. Magen Obrien LPN Since this is continuing on. Lets go ahead and start her on an antibiotic. I sent augmentin into the pharmacy. Please continue the mucinex, as well. Let us know if not improving. Gertta Mg APRN.YONAS TC to pt, she states she doesn't feel like she is getting any better. Cough and runny nose are maybe a little worse. She does note some shortness of breath/wheezing but unchanged from previous. Denies fever. She states cough is productive and mostly in the evening's/mornings. She states she has not been sleeping well d/t cough. Pt states she is still taking mucinex. Offered pt appt, pt declines appt. She states she will call office for an appt if she gets any worse. Advised pt to push fluids, continue mucinex. Recommended things like hot tea /c honey, chicken broth/noodle soup, etc. Magen Obrien LPN Please triage patient. If symptoms are worsening, probably needs to be checked. Gretta Mg APRN.YONAS See message from pt. Shruti Larsen Ma documented in this encounter [facility] 06-13-2022 Note HNO ID: [id number] Author: Gretta Mg APRN.USED CAR MANAGER Service: ? Author Type: Nurse Practitioner Type: Progress Notes Filed: 06/14/2022 5:18 PM Note Text: This is a 76 year old female who presents today with: Patient presents with: Acute Visit: Runny nose, cough with thick green mucus x4 days; no sore throat; no fever HISTORY OF PRESENT ILLNESS: Colton Montana is a 76 year old female. Patient presents with: Acute Visit: Runny nose, cough with thick green mucus x4 days; no sore throat; no fever Pt presents today with complaint of cough. Refers that she had cataract surgery on Saturday. Refers that she had follow-up with Dr. Robledo on Saturday and she advised that she should come and be checked to ensure that she doesn't have bronchitis. Refers that the cough started about Saturday. Hasn't done any covid testing. Refers that she has a lot of sick family members. No sore throat, but her throat gets dry. No inner ear pain. No facial pain/pressure. No n/v/d. No fevers/chills. She is isn't taking anything for the cough. Hasn't used her albuterol inhaler. PAST MEDICAL HISTORY: PAST MEDICAL HISTORY Diagnosis Date Acute bronchitis Anxiety Chronic cough COPD (chronic obstructive pulmonary disease) (HCC) moderate, PFT 02/2016 Depression Diabetes mellitus without mention of complication Diabetes mellitus Elevated blood pressure Hypertension Intermittent cerebral ischemia Long-term memory loss Menopause Osteopenia 02/2016 Right wrist fracture TIA (transient ischemic attack) Tobacco use Wheezing PAST SURGICAL HISTORY Procedure Laterality Date APPENDECTOMY incidental DELIVERY ONLY , low transverse EXC CYST/ABERRANT BREAST TISSUE OPEN 1/> LESION OPEN REPAIR OF ROTATOR CUFF ACUTE Rotator cuff repair, L. PAST SURGICAL HISTORY OF benign mass from back TOTAL ABDOMINAL HYSTERECT W/WO RMVL TUBE OVARY Hysterectomy, RELIN ALLERGIES Incruse Ellipta [Umeclidinium] and Oxycodone MEDICATIONS Current Outpatient Medications Medication Sig metFORMIN (GLUCOPHAGE) 500 mg tablet Take 1 tablet by mouth daily with breakfast. clopidogrel (PLAVIX) 75 mg tablet Take 1 tablet by mouth once daily. losartan (COZAAR) 25 mg tablet Take 1 tablet by mouth once daily. atorvastatin (LIPITOR) 20 mg tablet Take 1 tablet by mouth daily at bedtime. sertraline (ZOLOFT) 100 mg tablet Take 1.5 tablets by mouth once daily. albuterol HFA (VENTOLIN HFA) 90 mcg/actuation inhaler inhale 2 puffs as directed every 4 hours if needed for wheezing or shortness of breath blood sugar diagnostic (BLOOD GLUCOSE TEST) test strip Test blood sugar(s) 1-2 times daily. Dx: Type 2 DM - Controlled E11.9 Insulin: No VERIO Blood-Glucose Meter (BLOOD GLUCOSE MONITORING) monitoring kit Test blood sugar(s) 1-2 times daily. Dx: Type 2 DM - Controlled E11.9 Insulin: No Lancets lancets Test blood sugar(s) 1-2 times daily. Dx: Type 2 DM - Controlled E11.9 Insulin: No iv contrast (will be provided with radiology test) CT Urogram WO/W Inject, intravenously, once for 1 dose.No IV access, insert saline lock prior to the beginning of sedation, infusion, injection of imaging exam. Discontinue saline lock post exam. If Pt. has a central line or IVAD, may access for administration according to line specific nursing protocol. Once exam is complete flush line and de-access according to line specific nursing protocol in the CT contrast administration guidelines link. Current Facility-Administered Medications Medication Dose Route Frequency perflutren lipid microspheres 1.3 mL in NaCl (PF) 0.9% 10 mL injection (DEFINITY) INTRAVENOUS DIRECTED PRN sodium chloride 0.9 % (flush) 10 mL (BD POSIFLUSH) 10 mL INTRAVENOUS DIRECTED PRN FAMILY HISTORY Problem Relation Age of Onset Coronary Artery Disease Father 70 s/p CABG Diabetes Mother Diabetes Father Cancer Maternal Aunt leukemia Social History Tobacco Use Smoking status: Every Day Packs/day: 0.25 Years: 47.00 Pack years: 11.75 Types: Cigarettes Smokeless tobacco: Never Substance Use Topics Alcohol use: Yes Comment: rarely Drug use: No EXAM: BP 118/80 Pulse 82 Resp 18 SpO2 93% PHYSICAL EXAM: General Appearance: Well appearing, alert, in no acute distress, well-hydrated, well nourished.. Skin: Skin color, texture, turgor normal, no suspicious rashes or lesions. Head: Normocephalic, no masses, lesions, tenderness or abnormalities. Eyes: Anicteric sclera. Pupils are equally round and reactive to light. Extraocular movements are intact. . Ears: External ears normal, canals clear. Normal TMs bilaterally. Oropharynx: Lips, mucosa, and tongue normal, teeth and gums normal, oropharynx normal. Neck: Supple, no adenopathy Lungs: Lungs clear to auscultation. No wheezing, rhonchi, rales.. Heart: RRR without murmur, gallop, or rubs. No ectopy. Neurologic: Gait normal. ASSESSMENT/PLAN: 1. (more content not included)... [facility] 06-12-2022 Miscellaneous Notes Patient has been identified by name and date of : Yes Requested Prescriptions Pending Prescriptions Disp Refills metFORMIN (GLUCOPHAGE) 500 mg tablet 90 tablet 3 Sig: Take 1 tablet by mouth daily with breakfast. clopidogrel (PLAVIX) 75 mg tablet 90 tablet 3 Sig: Take 1 tablet by mouth once daily. JULIO 11/21/21 NOV: Pt is due for follow up RX INSTRUCTIONS: Patient aware RX will be sent to pharmacy. No need to notify patient. Griselda Rodríguez Ma documented in this encounter [facility] 06-11-2022 Miscellaneous Notes Patient phones requesting refills as follows: Requested Prescriptions Pending Prescriptions Disp Refills atorvastatin (LIPITOR) 20 mg tablet 30 tablet 11 Sig: Take 1 tablet by mouth daily at bedtime. (See previous rx request- pt overdue for follow up appt and labs. Pt notified via . Labs pending in previous rx request.) Please review and advise. Magen Obrien LPN documented in this encounter [facility] documented as of this encounter (statuses as of 02/22/2023) [facility] History of Past illness Narrative* Problem Noted Date Diagnosed Date Resolved Date Shortness of breath 02/09/2022 12/27/2022 12/28/19 23 COPD with chronic bronchitis 09/05/2016 12/26/2018 Hyperlipidemia 03/15/2014 12/26/2018 documented as of this encounter (statuses as of 02/28/2023) [address]22 History of Past illness Narrative* Problem Noted Date Diagnosed Date Resolved Date Shortness of breath 02/09/2022 12/27/2022 12/28/19 23 COPD with chronic bronchitis 09/05/2016 12/26/2018 Hyperlipidemia 03/15/2014 12/26/2018 documented as of this encounter (statuses as of 03/12/2023) [address]22 History of Past illness Narrative* Problem Noted Date Diagnosed Date Resolved Date Shortness of breath 02/09/2022 12/27/2022 12/28/19 23 COPD with chronic bronchitis 09/05/2016 12/26/2018 Hyperlipidemia 03/15/2014 12/26/2018 documented as of this encounter (statuses as of 04/12/2023) [address]22 History of Past illness Narrative* Problem Noted Date Diagnosed Date Resolved Date Shortness of breath 02/09/2022 12/27/2022 12/28/19 23 COPD with chronic bronchitis 09/05/2016 12/26/2018 Hyperlipidemia 03/15/2014 12/26/2018 documented as of this encounter (statuses as of 04/15/2023) [address]22 History of Past illness Narrative* Problem Noted Date Diagnosed Date Resolved Date Shortness of breath 02/09/2022 12/27/2022 12/28/19 23 COPD with chronic bronchitis 09/05/2016 12/26/2018 Hyperlipidemia 03/15/2014 12/26/2018 documented as of this encounter (statuses as of 04/18/2023) [address]22 History of Past illness Narrative* Problem Noted Date Diagnosed Date Resolved Date Shortness of breath 02/09/2022 12/27/2022 12/28/19 23 COPD with chronic bronchitis 09/05/2016 12/26/2018 Hyperlipidemia 03/15/2014 12/26/2018 documented as of this encounter (statuses as of 04/18/2023) [address]22 History of Past illness Narrative* Problem Noted Date Diagnosed Date Resolved Date Shortness of breath 02/09/2022 12/27/2022 12/28/19 23 COPD with chronic bronchitis 09/05/2016 12/26/2018 Hyperlipidemia 03/15/2014 12/26/2018 documented as of this encounter (statuses as of 04/19/2023) [facility] History of Past illness Narrative* Problem Noted Date Diagnosed Date Resolved Date Shortness of breath 02/09/2022 12/27/2022 12/28/19 23 COPD with chronic bronchitis 09/05/2016 12/26/2018 Hyperlipidemia 03/15/2014 12/26/2018 documented as of this encounter (statuses as of 04/24/2023) [facility] History of Past illness Narrative* Problem Noted Date Diagnosed Date Resolved Date Shortness of breath 02/09/2022 12/27/2022 12/28/19 23 COPD with chronic bronchitis 09/05/2016 12/26/2018 Hyperlipidemia 03/15/2014 12/26/2018 documented as of this encounter (statuses as of 04/27/2023) [address] History of Past illness Narrative* Problem Noted Date Diagnosed Date Resolved Date Shortness of breath 02/09/2022 12/27/2022 12/28/19 23 COPD with chronic bronchitis 09/05/2016 12/26/2018 Hyperlipidemia 03/15/2014 12/26/2018 documented as of this encounter (statuses as of 04/27/2023) [address]30-2022 History of Past illness Narrative* Problem Noted Date Diagnosed Date Resolved Date Shortness of breath 02/09/2022 12/27/2022 12/28/19 23 COPD with chronic bronchitis 09/05/2016 12/26/2018 Hyperlipidemia 03/15/2014 12/26/2018 documented as of this encounter (statuses as of 06/25/2023) [address]30-2022 History of Past illness Narrative* Problem Noted Date Diagnosed Date Resolved Date Shortness of breath 02/09/2022 12/27/2022 12/28/19 23 COPD with chronic bronchitis 09/05/2016 12/26/2018 Hyperlipidemia 03/15/2014 12/26/2018 documented as of this encounter (statuses as of 06/29/2023) [facility] Miscellaneous Notes* Telephone Encounter - Unique Escobedo LPN - 12/13/2021 4:30 PM EDT Fax will not go through, mailing information to [facility] office. * Telephone Encounter - Unique Escobedo LPN - 12/13/2021 3:18 PM EDT Patient daughter Griselda returned call and said she has mother scheduled to see Dr Grady on 02/09/2022 at 2 pm. Asking for referral, labs, chest xray, anything heart related, PFT faxed please. Faxed 54 pages of information. * Telephone Encounter - Poppy Suarez RN - 12/13/2021 2:13 PM EDT Spoke with patient. Given message from provider's office. Patient verbalizes understanding. She states her daughter, Griselda will call back to schedule Cardiology appointment. Poppy Suarez RN * Telephone Encounter - Magen Obrien LPN - 12/12/2021 4:51 PM EDT TC to pt, left message with sister to have pt return call to office. Magen Obrien LPN * Telephone Encounter - Gretta Mg APRN.USED CAR MANAGER - 12/12/2021 4:45 PM EDT Can please let patient know that we received her echocardiogram results. It does show a little leakage/regurgitation of one of her valves. Since this looks a little worse then her previous echocardiogram, and she has been having some SOB, lets have her get set up for evaluation with cardiology, as well. The referral is placed. Please help schedule. Gretta Mg APRN.CNP documented [facility] History of Present illness Narrative* Hue Frances Allen Pss - 12/13/2021 2:02 PM EDT POPULATION HEALTH NAVIGATION OUTREACH Action/I Patient Outreach: [facility] Support - Pt has been scheduled and seen for PCP follow up visit. Pt identified by name and : NO Outreach Outcome/Action Unable to reach patient: Phone number not valid / voicemail full Did you use a PCP flex slot to schedule this appointment? No Reason for Outreach Care Gap or Scheduling/Wellness visits Payer: Payor: MEDICARE / Plan: MEDICARE A AND B / Product Type: Medicare / Care Gap Reviewed:: Follow-up appointment Reminder: Reminder note to check Health Maintenance for items below Health Maintenance items due: BP CONTROLLED (<130/80) Never done DTAP,TDAP,TD(1 - Tdap) Never done ALPHA-1 ANTITRYPSIN DEFICIENCY SCREENING Never done SHINGRIX VACCINE(1 of 2) Never done DILATED RETINAL EXAM due on 03/29/2017 PNEUMOCOCCAL: 66+(2 - PCV) due on 05/16/2017 DIABETIC FOOT EXAM due on 12/27/2019 ADVANCE DIRECTIVE DISCUSSION Never done URINE ALBUMIN:CREATININE RATIO due on 06/23/2021 COLORECTAL CANCER SCREENING due on 06/23/2021 HBA1C due on 10/21/2021 Message Sent to Practice: No Navigation Signature: Hue Allen Pss December 13, 2021 2:02 PM documented in this encounterCl[facility] Miscellaneous Notes* Telephone Encounter - Viji Sauceda Ma - 12/07/2021 4:14 PM EDT Daughter was notified and transferred to schedulers Viji Sauceda Ma * Telephone Encounter - Maryan Torrez MD - 12/07/2021 4:00 PM EDT pfts show copd. And that her lungs are not working as well as they should. She should actually see a lung doc to see if we can maximize things. documented in this encounterCl[facility] Instructions* Patient Instructions* Gretta Mg APRN.CNP - 11/21/2021 3:01 PM EDT 1. Start claritin daily (loratadine). 2. Schedule the echocardiogram. 3. Schedule the pulmonary function tests. documented in this encounterCl[facility]07[facility] History of Present illness Narrative* Gretta Mg APRN.CNP - 11/21/2021 2:40 PM EDT This is a 76 year old female who presents today with: Patient presents with: Cough: productive cough with clear mucous x 3-4 months/ worse when going outside/ CXR completed yesterday Rhinitis HISTORY OF PRESENT ILLNESS: Colton Montana is a 76 year old female. Patient presents with: Cough: productive cough with clear mucous x 3-4 months/ worse when going outside/ CXR completed yesterday Rhinitis Pt presents today with complaint of productive cough X 3-4 months. Presents with daughter. Reports that they have noticed some worsening SOB. Daughter reports that she feels that this has been more of a sudden change in nature. Cough is productive/clear. Hasn't used the albuterol inhaler. Refers that she has tried benadryl, which has helped. Denies any chest pain, palpitations, swelling in her extremities. She also did not denies orthopnea. She does have a past hx of COPD. She continues to smoke appx 1/2 ppd. Admits that she hasn't been using inhaler. She has never been seen by pulmonology. PAST MEDICAL HISTORY: PAST MEDICAL HISTORY Diagnosis Date Acute bronchitis Anxiety Chronic cough COPD (chronic obstructive pulmonary disease) (HCC) moderate, PFT 02/2016 Depression Diabetes mellitus without mention of complication Diabetes mellitus Elevated blood pressure Hypertension Intermittent cerebral ischemia Long-term memory loss Menopause Osteopenia 02/2016 Right wrist fracture TIA (transient ischemic attack) Tobacco use Wheezing PAST SURGICAL HISTORY Procedure Laterality Date APPENDECTOMY incidental DELIVERY ONLY , low transverse EXC CYST/ABERRANT BREAST TISSUE OPEN 1/> LESION OPEN REPAIR OF ROTATOR CUFF ACUTE Rotator cuff repair, L. PAST SURGICAL HISTORY OF benign mass from back TOTAL ABDOMINAL HYSTERECT W/WO RMVL TUBE OVARY Hysterectomy, ERLIN ALLERGIES Incruse Ellipta [Umeclidinium] and Oxycodone MEDICATIONS Current Outpatient Medications Medication Sig blood sugar diagnostic (BLOOD GLUCOSE TEST) test strip Test blood sugar(s) 1-2 times daily. Dx: Type 2 DM - Controlled E11.9 Insulin: No VERIO Blood-Glucose Meter (BLOOD GLUCOSE MONITORING) monitoring kit Test blood sugar(s) 1-2 times daily. Dx: Type 2 DM - Controlled E11.9 Insulin: No metFORMIN (GLUCOPHAGE) 500 mg tablet Take 1 tablet by mouth daily with breakfast. atorvastatin (LIPITOR) 20 mg tablet Take 1 tablet by mouth daily at bedtime. losartan (COZAAR) 25 mg tablet Take 1 tablet by mouth once daily. clopidogrel (PLAVIX) 75 mg tablet Take 1 tablet by mouth once daily. Lancets lancets Test blood sugar(s) 1-2 times daily. Dx: Type 2 DM - Controlled E11.9 Insulin: No albuterol HFA (VENTOLIN HFA) 90 mcg/actuation inhaler inhale 2 puffs as directed every 4 hours if needed for wheezing or shortness of breath sertraline (ZOLOFT) 100 mg tablet Take 1.5 tablets by mouth once daily. iv contrast (will be provided with radiology test) CT Urogram WO/W Inject, intravenously, once for 1 dose.No IV access, insert saline lock prior to the beginning of sedation, infusion, injection of imaging exam. Discontinue saline lock post exam. If Pt. has a central line or IVAD, may access for administration according to line specific nursing protocol. Once exam is complete flush line and de-access according to line specific nursing protocol in the CT contrast administration guidelines link. Current Facility-Administered Medications Medication Dose Route Frequency perflutren lipid microspheres 1.3 mL in NaCl (PF) 0.9% 10 mL injection (DEFINITY) INTRAVENOUS DIRECTED PRN sodium chloride 0.9 % (flush) 10 mL (BD POSIFLUSH) 10 mL INTRAVENOUS DIRECTED PRN FAMILY HISTORY Problem Relation Age of Onset Coronary Artery Disease Father 70 s/p CABG Diabetes Mother Diabetes Father Cancer Maternal Aunt leukemia Social History Tobacco Use Smoking status: Current Every Day Smoker Packs/day: 0.25 Years: 47.00 Pack years: 11.75 Types: Cigarettes Smokeless tobacco: Never Used Substance Use Topics Alcohol use: Yes Comment: rarely Drug use: No EXAM: BP 130/72 Pulse 70 Resp 18 Wt 52.2 kg (115 lb) SpO2 95% BMI 20.37 kg/m PHYSICAL EXAM: General Appearance: Well appearing, alert, in no acute distress, well-hydrated, well nourished.. Skin: Skin color, texture, turgor normal, no suspicious rashes or lesions. Head: Normocephalic, no masses, lesions, tenderness or abnormalities. Eyes: Anicteric sclera. Pupils are equally round and reactive to light. Extraocular movements are intact. . Ears: External ears normal, canals clear. Oropharynx: Lips, mucosa, and tongue normal, teeth and gums normal, oropharynx normal. Neck: Supple, no adenopathy; thyroid symmetric, normal size, no bruits. Lungs: scattered exp wheezing. Heart: RRR without murmur, gallop, or rubs. No ectopy. Abdomen: Abdomen soft, non-tender. Bowel sounds normal. No masses, organomegaly. Extremities: No deformities, edema, skin discoloration, clubbing or cyanosis. Good capillary refill. . Neurologic: Gait normal. ASSESSMENT/PLAN: 1. SOB (shortness of breath) - ICD9: 786.05, ICD10: R06.02 (primary diagnosis) Daughter reports that this is more of a sudden change. We will go ahead and get EKG today, which shows normal sinus rhythm, nonspecific ST and T wave abnormality, and voltage criteria for left ventricular hypertrophy. Upon comparison to previous EKG, essentially unchanged. We will go ahead and get echocardiogram to r/o cardiac causes. - ECHO - PERFLUTREN LIPID MICROSPHERES 1.1 MG/ML INJECTION IN NS 10 ML - SODIUM CHLORIDE 0.9 % (FLUSH) INJECTION SYRINGE - ECG COMPLETE - SPIROMETRY WITH DILATOR IF OBSTRUCTED - LUNG DIFFUSION CAPACITY (DLCO) - LUNG VOLUMES 2. COPD with exacerbation (HCC) - ICD9: 491.21, ICD10: J44.1 Last PFTs approximately 6 to 7 years ago. We will go ahead and get updated PFTs. Discussed with patient that previous PFTs did show a response to bronchodilator. She is encouraged to use the albuterol inhaler to see if this improves her symptoms. - ALBUTEROL SULFATE HFA 90 MCG/ACTUATION AEROSOL INHALER 3. Nasal drainage - ICD9: 478.19, ICD10: J34.89 Suspect allergies in nature. We will go ahead and start vccq-ngb-domqdie loratadine daily for symptoms. Discussed treatment plan and patient voices understanding. Patient's questions answered appropriately. Medications and potential side effects were discussed and patient voices understanding. Return to the office as scheduled or as needed for worsening/no improvement. Gretta Mg APRN.YONAS The patient indicates understanding of these issues and agrees with the plan. This note was partially generated using [employer] voice recognition system. Note was reviewed for accuracy. There may be minor misspellings or grammar miscues with [employer] voice recognition. documented in this encounterCl[facility] History of Present illness Narrative* RT Sweta(R) - 11/20/2021 10:30 AM EDT Radiology Service Progress Note PATIENT NAME: Colton Montana DATE OF SERVICE: November 20, 2021 TIME: 10:24 AM PATIENT IDENTITY VERIFICATION COMPLETED USING TWO (2) IDENTIFIERS: Name and Date of confirmedby patient verbally. FALL SCREENING: Has the patient had 2 falls in the last year or 1 fall with injury or currently using an Ambulatory Assistive Device (Walker, Cane, Wheelchair, Crutches, etc.)? No PATIENT GENDER DATA: Female. status: : No status: NO. PATIENT RELEVANT IMPLANT DATA REVIEWED: Not Applicable RADIOLOGY DEPARTMENT: General X-ray: Exam(s) Completed: Chest X-Ray PERIPHERAL IV DATA: Not applicable SIGNED BY: RT Sweta(R) November 20, 2021 10:24 AM documented in this encounterCl[facility]03[facility] History of Present illness Narrative* Ragini Bañuelos MA - 08/10/2021 8:43 AM EDT POPULATION HEALTH NAVIGATION OUTREACH Action/I Phone is out service [employer] message sent Health Maintenance items due: Follow up BP CONTROLLED (<130/80) Never done DILATED RETINAL EXAM due on 03/29/2017 MAMMOGRAM due on 01/10/2020 ADVANCE DIRECTIVE DISCUSSION Never done URINE ALBUMIN:CREATININE RATIO due on 06/23/2021 COLORECTAL CANCER SCREENING due on 06/23/2021 Pt identified by name and : NO Outreach Outcome/Action Unable to reach patient: Phone number not valid / voicemail full [employer] message sent Reason for Outreach Care Gap or Scheduling/Wellness visits Payer: Payor: MEDICARE / Plan: MEDICARE A AND B / Product Type: Medicare / Care Gap Reviewed:: Breast Cancer screening Controlling Blood Pressure Colorectal Cancer Screening Diabetic Eye Exam Reminder: Reminder note to check Health Maintenance for items below Health Maintenance items due: BP CONTROLLED (<130/80) Never done DTAP,TDAP,TD(1 - Tdap) Never done SHINGRIX VACCINE(1 of 2) Never done DILATED RETINAL EXAM due on 03/29/2017 DIABETIC FOOT EXAM due on 12/27/2019 MAMMOGRAM due on 01/10/2020 ADVANCE DIRECTIVE DISCUSSION Never done URINE ALBUMIN:CREATININE RATIO due on 06/23/2021 COLORECTAL CANCER SCREENING due on 06/23/2021 Message Sent to Practice: No Navigation Signature: Ragini Bañuelos MA August 10, 2021 8:43 AM documented in this encounterClerm[facility]04[facility] History of Past illness Narrative* Problem Noted Date Resolved Date COPD with chronic bronchitis 09/05/2016 Hyperlipidemia 03/15/2014 12/26/2018 documented as of this encounter (statuses as of 08/10/2021) [facility] History of Past illness Narrative* Problem Noted Date Resolved Date COPD with chronic bronchitis 09/05/2016 Hyperlipidemia 03/15/2014 12/26/2018 documented as of this encounter (statuses as of 11/21/2021) [address]26-2017 History of Past illness Narrative* Problem Noted Date Resolved Date COPD with chronic bronchitis 09/05/2016 Hyperlipidemia 03/15/2014 12/26/2018 documented as of this encounter (statuses as of 11/21/2021) [address]26-2017 History of Past illness Narrative* Problem Noted Date Resolved Date COPD with chronic bronchitis 09/05/2016 Hyperlipidemia 03/15/2014 12/26/2018 documented as of this encounter (statuses as of 12/07/2021) [address]26-2017 History of Past illness Narrative* Problem Noted Date Resolved Date COPD with chronic bronchitis 09/05/2016 Hyperlipidemia 03/15/2014 12/26/2018 documented as of this encounter (statuses as of 12/07/2021) [address]26-2017 History of Past illness Narrative* Problem Noted Date Resolved Date COPD with chronic bronchitis 09/05/2016 Hyperlipidemia 03/15/2014 12/26/2018 documented as of this encounter (statuses as of 12/13/2021) [address]26-2017 History of Past illness Narrative* Problem Noted Date Resolved Date COPD with chronic bronchitis 09/05/2016 Hyperlipidemia 03/15/2014 12/26/2018 documented as of this encounter (statuses as of 12/13/2021) [address]26-2017 History of Past illness Narrative* Problem Noted Date Resolved Date COPD with chronic bronchitis 09/05/2016 Hyperlipidemia 03/15/2014 12/26/2018 documented as of this encounter (statuses as of 06/12/2022) [address]26-2017 History of Past illness Narrative* Problem Noted Date Resolved Date COPD with chronic bronchitis 09/05/2016 Hyperlipidemia 03/15/2014 12/26/2018 documented as of this encounter (statuses as of 06/13/2022) [address]26-2017 History of Past illness Narrative* Problem Noted Date Resolved Date COPD with chronic bronchitis 09/05/2016 Hyperlipidemia 03/15/2014 12/26/2018 documented as of this encounter (statuses as of 06/21/2022) [address]26-2017 History of Past illness Narrative* Problem Noted Date Resolved Date COPD with chronic bronchitis 09/05/2016 Hyperlipidemia 03/15/2014 12/26/2018 documented as of this encounter (statuses as of 08/14/2022) [place] [address]26-2017 History of Past illness Narrative* Problem Noted Date Resolved Date COPD with chronic bronchitis 09/05/2016 Hyperlipidemia 03/15/2014 12/26/2018 documented as of this encounter (statuses as of 08/24/2022) [address]26-2017 History of Past illness Narrative* Problem Noted Date Resolved Date COPD with chronic bronchitis 09/05/2016 Hyperlipidemia 03/15/2014 12/26/2018 documented as of this encounter (statuses as of 08/27/2022) [address]26-2017 History of Past illness Narrative* Problem Noted Date Resolved Date COPD with chronic bronchitis 09/05/2016 Hyperlipidemia 03/15/2014 12/26/2018 documented as of this encounter (statuses as of 09/13/2022) [place] [address] History of Past illness Narrative* Problem Noted Date Resolved Date COPD with chronic bronchitis 09/05/2016 Hyperlipidemia 03/15/2014 12/26/2018 documented as of this encounter (statuses as of 09/14/2022) [address]26[address]2017 History of Past illness Narrative* Problem Noted Date Diagnosed Date Resolved Date COPD with chronic bronchitis 09/05/2016 12/26/2018 Hyperlipidemia 03/15/2014 12/26/2018 documented as of this encounter (statuses as of 12/10/2022) [facility] SOB (shortness of breath) Shortness of breath [facility] Diagnosis SOB (shortness of breath)- Primary Shortness of breath COPD with exacerbation (HCC) Obstructive chronic bronchitis with exacerbation Nasal drainage Other diseases of nasal cavity and sinuses [facility]* Diagnosis SOB (shortness of breath) Shortness of breath [facility]* Diagnosis SOB (shortness of breath)- Primary Shortness of breath Abnormal PFT Nonspecific abnormal results of pulmonary system function study [facility]* Diagnosis Aortic valve insufficiency, etiology of cardiac valve disease unspecified- Primary [facility]* Diagnosis Controlled type 2 diabetes mellitus without complication, without long-term current use of insulin (HCC) Other specified transient cerebral ischemias [facility]* Diagnosis Sinobronchitis- Primary Unspecified sinusitis (chronic) documented [facility]* Diagnosis Urinary tract infection with hematuria, site unspecified- Primary [facility]* Diagnosis Controlled type 2 diabetes mellitus without complication, without long-term current use of insulin (HCC) Other specified transient cerebral ischemias [facility]* Diagnosis Urinary frequency- Primary Urinary tract infection with hematuria, site unspecified [facility]* Diagnosis Other specified transient cerebral ischemias [facility]* Diagnosis Arm mass, left- Primary [facility]* Diagnosis NO SHOW- Primary [facility]* Diagnosis Bacterial pneumonia- Primary Bacterial pneumonia, unspecified Controlled type 2 diabetes mellitus without complication, without long-term current use of insulin (HCC) Hypertension goal BP (blood pressure) < 150/90 Unspecified essential hypertension Moderate COPD (chronic obstructive pulmonary disease) (HCC) Chronic airway obstruction, not elsewhere classified Iron deficiency anemia, unspecified iron deficiency anemia type Onychomycosis Dermatophytosis of nail TIA (transient ischemic attack) Unspecified transient cerebral ischemia Mixed hyperlipidemia Nonrheumatic aortic valve insufficiency Aortic valve disorders [facility]* Diagnosis Bacterial pneumonia- Primary Bacterial pneumonia, unspecified Anemia, unspecified type Chronic obstructive pulmonary disease, unspecified COPD type (HCC) Nonrheumatic aortic valve insufficiency Aortic valve disorders Hypertension goal BP (blood pressure) < 150/90 Unspecified essential hypertension LLQ pain Abdominal pain, left lower quadrant Left lower quadrant abdominal pain Tobacco use Tobacco use disorder [facility]* Diagnosis Thrombocytosis- Primary Essential thrombocythemia [facility]* Diagnosis Bacterial pneumonia- Primary Bacterial pneumonia, unspecified History of anemia Personal history of diseases of blood and blood-forming organs Thrombocytosis Essential thrombocythemia Chronic obstructive pulmonary disease, unspecified COPD type (HCC) Hypertension goal BP (blood pressure) < 150/90 Unspecified essential hypertension LLQ pain Abdominal pain, left lower quadrant Abnormal weight loss Loss of weight documented in this encounter [facility] note* Diagnosis Bacterial pneumonia Bacterial pneumonia, unspecified Chronic obstructive pulmonary disease, unspecified COPD type (HCC) documented in this encounter [facility] note* Diagnosis Leukocytosis, unspecified type- Primary documented in this encounter [facility] note* Diagnosis LLQ pain Abdominal pain, left lower quadrant documented in this encounter [facility] note* Diagnosis NO SHOW- Primary documented in this encounter [facility] note* Diagnosis SOB (shortness of breath)- Primary Shortness of breath Moderate COPD (chronic obstructive pulmonary disease) (HCC) Chronic airway obstruction, not elsewhere classified documented in this encounter [facility] for referral (narrative)* Outpatient Procedure (Routine) - Authorized Specialty Diagnoses / Procedures Referred By Contac t Referred To [facility] [place] Diagnoses SOB (shortness of breath) Procedures LUNG VOLUMES Gretta Mg APRN.CNP [address] [place] [address] Respiratory [place] [id number] Referral ID Status Reason Start Date Expiration Date Visits Requested Visits Authorized [id number] Authorized Auto-Generat ed Referral 11/21/2021 12/21/2022 1 1 * Outpatient Procedure (Routine) - Authorized Specialty Diagnoses / Procedures Referred By Contac t Referred To [facility] [place] Diagnoses SOB (shortness of breath) Procedures LUNG DIFFUSION CAPACITY (DLCO) DIFFUSING CAPACITY Gretta Mg APRN.CNP [address] [place] [address] [address] Referral ID Status Reason Start Date Expiration Date Visits Requested Visits Authorized [id number] Authorized Auto-Generat ed Referral 11/21/2021 12/21/2022 1 1 * Outpatient Procedure (Routine) - Authorized Specialty Diagnoses / Procedures Referred By Contac t Referred To [facility] [place] Diagnoses SOB (shortness of breath) Procedures SPIROMETRY WITH DILATOR IF OBSTRUCTED BRNCDILAT RSPSE SPMTRY PRE&POST-BRNCDILAT ADMN Gretta Mg APRN.USED CAR MANAGER [address] [place] [address] Respiratory [place] [address] [place] [id number] Referral ID Status Reason Start Date Expiration Date Visits Requested Visits Authorized [id number] Authorized Auto-Generat ed Referral 11/21/2021 12/21/2022 1 1 * Outpatient Procedure (Routine) - Closed Specialty Diagnoses / Procedures Referred By Contac t Referred To Contact [facility] [place] Diagnoses SOB (shortness of breath) Procedures ECG COMPLETE ECG ROUTINE ECG W/LEAST 12 LDS W/I&R Gretta Mg APRN.USED CAR MANAGER [address] [place] [address] [facility] [address] [id number] Referral ID Status Reason Start Date Expiration Date V isits Requested Visits Authorized [id number] Closed Auto-Generate d Referral 11/21/2021 11/21/2022 1 1 * Outpatient Procedure (Routine) - Authorized Specialty Diagnoses / Procedures Referred By Contac t Referred To Contact [facility] [place] Diagnoses SOB (shortness of breath) Procedures ECHO ECHO TTHRC R-T 2D W/WOM-MODE COMPL SPEC&COLR D Gretta Mg APRN.USED CAR MANAGER [address] [place] [address] [facility] [address] [address] Referral ID Status Reason Start Date Expiration Date Visits Requested Visits Authorized [id number] Authorized Auto-Generat ed Referral 11/21/2021 11/21/2022 1 1 [facility] for referral (narrative)* Diagnostic Procedure Only (Routine) - Pending Review Specialty Diagnoses / Procedures Referred By Contac t Referred To Contact XR IMAGING Diagnoses Arm mass, left Procedures XR FOREARM GENERAL 2V AP/LAT LEFT RADEX FOREARM 2 VIEWS Henrietta Graham APRN.USED CAR MANAGER [address] [phone] [place] [address] Referral ID Status Reason Start Date Expiration Date Visits Requested Visits Authorized [id number] Pending Review Auto-Generat ed Referral 03/22/2024 1 1 [facility] Reason for Referral Specialty Diagnoses / Procedures Referred By Contac t Referred To Contact Pulmonary and Critical Care Medicine Diagnoses SOB (shortness of breath) Abnormal PFT Procedures CONSULT TO PULM/CRITICAL CARE OFFICE/OUTPATIENT [facility] 60-74 MINUTES Maryan Torrez MD [address] [phone] Referral ID Status Reason Start Date Expiration Date Visits Requested Visits Authorized [id number] Authorized PCP Requested Referral 12/07/2021 12/07/2022 1 1 Specialty Diagnoses / Procedures Referred By Contac t Referred To Contact Cardiology Diagnoses Aortic valve insufficiency, etiology of cardiac valve disease unspecified Procedures CONSULT TO CARDIOLOGY OFFICE/OUTPATIENT [facility] 60-74 MINUTES Gretta Mg APRN.USED CAR MANAGER [address] [phone] Referral ID Status Reason Start Date Expiration Date Visits Requested Visits Authorized [id number] Authorized PCP Requested Referral 12/12/2021 12/12/2022 1 1 Specialty Diagnoses / Procedures Referred By Contac t Referred To Contact CT IMAGING Diagnoses LLQ pain Procedures CT ABD/PEL W IVCON CT ABD & PELVIS W/CONTRAST Maryan Torrez MD [facility] [place] [address] [place] [address] Referral ID Status Reason Start Date Expiration Date Visits Requested Visits Authorized [id number] Authorized Auto-Generat ed Referral 04/12/2023 05/11/2024 1 1 Referral ID Status Reason Start Date Expiration Date V isits Requested Visits Authorized [id number] Closed Auto-Generate d Referral 04/12/2023 05/11/2024 1 1 Summary Purpose Family History No Family History Records Found Advance Directives Documents on File Type Date Recorded Patient Home Health Attendant Expl anation Advance Directive(s) 05/17/2023 2:31 PM Additional Source Comments Source Comments (unrecognize d section and content) In the event this informatio n is protected by the Federal Confidentiality of Alcohol and Drug Abuse Patient Records regulations: The Federal rules restrict any use of the information to criminally investigate or prosecute any alcohol or drug abuse patient.[facility] the event this information is protected by the Federal Confidentiality of Alcohol and Drug Abuse Patient Records regulations: The Federal rules restrict any use of the information to criminally investigate or prosecute any alcohol or drug abuse patient.[facility] the event this information is protected by the Federal Confidentiality of Alcohol and Drug Abuse Patient Records regulations: The Federal rules restrict any use of the information to criminally investigate or prosecute any alcohol or drug abuse patient.[facility] the event this information is protected by the Federal Confidentiality of Alcohol and Drug Abuse Patient Records regulations: The Federal rules restrict any use of the information to criminally investigate or prosecute any alcohol or drug abuse patient.[facility] the event this information is protected by the Federal Confidentiality of Alcohol and Drug Abuse Patient Records regulations: The Federal rules restrict any use of the information to criminally investigate or prosecute any alcohol or drug abuse patient.[facility] the event this information is protected by the Federal Confidentiality of Alcohol and Drug Abuse Patient Records regulations: The Federal rules restrict any use of the information to criminally investigate or prosecute any alcohol or drug abuse patient.[facility] the event this information is protected by the Federal Confidentiality of Alcohol and Drug Abuse Patient Records regulations: The Federal rules restrict any use of the information to criminally investigate or prosecute any alcohol or drug abuse patient.[facility] the event this information is protected by the Federal Confidentiality of Alcohol and Drug Abuse Patient Records regulations: The Federal rules restrict any use of the information to criminally investigate or prosecute any alcohol or drug abuse patient.[facility] the event this information is protected by the Federal Confidentiality of Alcohol and Drug Abuse Patient Records regulations: The Federal rules restrict any use of the information to criminally investigate or prosecute any alcohol or drug abuse patient.[facility] the event this information is protected by the Federal Confidentiality of Alcohol and Drug Abuse Patient Records regulations: The Federal rules restrict any use of the information to criminally investigate or prosecute any alcohol or drug abuse patient.[facility] the event this information is protected by the Federal Confidentiality of Alcohol and Drug Abuse Patient Records regulations: The Federal rules restrict any use of the information to criminally investigate or prosecute any alcohol or drug abuse patient.[facility] the event this information is protected by the Federal Confidentiality of Alcohol and Drug Abuse Patient Records regulations: The Federal rules restrict any use of the information to criminally investigate or prosecute any alcohol or drug abuse patient.[facility] the event this information is protected by the Federal Confidentiality of Alcohol and Drug Abuse Patient Records regulations: The Federal rules restrict any use of the information to criminally investigate or prosecute any alcohol or drug abuse patient.[facility] the event this information is protected by the Federal Confidentiality of Alcohol and Drug Abuse Patient Records regulations: The Federal rules restrict any use of the information to criminally investigate or prosecute any alcohol or drug abuse patient.[facility] the event this information is protected by the Federal Confidentiality of Alcohol and Drug Abuse Patient Records regulations: The Federal rules restrict any use of the information to criminally investigate or prosecute any alcohol or drug abuse patient.[facility] the event this information is protected by the Federal Confidentiality of Alcohol and Drug Abuse Patient Records regulations: The Federal rules restrict any use of the information to criminally investigate or prosecute any alcohol or drug abuse patient.[facility] the event this information is protected by the Federal Confidentiality of Alcohol and Drug Abuse Patient Records regulations: The Federal rules restrict any use of the information to criminally investigate or prosecute any alcohol or drug abuse patient.[facility] the event this information is protected by the Federal Confidentiality of Alcohol and Drug Abuse Patient Records regulations: The Federal rules restrict any use of the information to criminally investigate or prosecute any alcohol or drug abuse patient.[facility] the event this information is protected by the Federal Confidentiality of Alcohol and Drug Abuse Patient Records regulations: The Federal rules restrict any use of the information to criminally investigate or prosecute any alcohol or drug abuse patient.[facility] the event this information is protected by the Federal Confidentiality of Alcohol and Drug Abuse Patient Records regulations: The Federal rules restrict any use of the information to criminally investigate or prosecute any alcohol or drug abuse patient.[facility] the event this information is protected by the Federal Confidentiality of Alcohol and Drug Abuse Patient Records regulations: The Federal rules restrict any use of the information to criminally investigate or prosecute any alcohol or drug abuse patient.[facility] the event this information is protected by the Federal Confidentiality of Alcohol and Drug Abuse Patient Records regulations: The Federal rules restrict any use of the information to criminally investigate or prosecute any alcohol or drug abuse patient.[facility] the event this information is protected by the Federal Confidentiality of Alcohol and Drug Abuse Patient Records regulations: The Federal rules restrict any use of the information to criminally investigate or prosecute any alcohol or drug abuse patient.[facility] the event this information is protected by the Federal Confidentiality of Alcohol and Drug Abuse Patient Records regulations: The Federal rules restrict any use of the information to criminally investigate or prosecute any alcohol or drug abuse patient.[facility] the event this information is protected by the Federal Confidentiality of Alcohol and Drug Abuse Patient Records regulations: The Federal rules restrict any use of the information to criminally investigate or prosecute any alcohol or drug abuse patient.[facility] the event this information is protected by the Federal Confidentiality of Alcohol and Drug Abuse Patient Records regulations: The Federal rules restrict any use of the information to criminally investigate or prosecute any alcohol or drug abuse patient.[facility] the event this information is protected by the Federal Confidentiality of Alcohol and Drug Abuse Patient Records regulations: The Federal rules restrict any use of the information to criminally investigate or prosecute any alcohol or drug abuse patient.[facility] the event this information is protected by the Federal Confidentiality of Alcohol and Drug Abuse Patient Records regulations: The Federal rules restrict any use of the information to criminally investigate or prosecute any alcohol or drug abuse patient.[facility] the event this information is protected by the Federal Confidentiality of Alcohol and Drug Abuse Patient Records regulations: The Federal rules restrict any use of the information to criminally investigate or prosecute any alcohol or drug abuse patient.[facility] the event this information is protected by the Federal Confidentiality of Alcohol and Drug Abuse Patient Records regulations: The Federal rules restrict any use of the information to criminally investigate or prosecute any alcohol or drug abuse patient.[facility] Reason for Visit (unrecogniz ed section and content) Reason Comments Cough productive cough wit h clear mucous x 3-4 months/ worse when going outside/ CXR completed yesterday Rhinitis Reason Comments Spirometry Specialty Diagnoses / Procedures Referred By Contac t Referred To Contact [facility] Diagnoses SOB (shortness of breath) Procedures LUNG VOLUMES Gretta Mg APRN.USED CAR MANAGER [address] [place] [address] [facility] [address] [place] [address] Referral ID Status Reason Start Date Expiration Date V isits Requested Visits Authorized [id number] Closed Auto-Generate d Referral 11/21/2021 12/21/2022 1 1 Reason Comments Results Reason Onset Date Comments Refill Request 06/11/2022 Reason Onset Date Comments Refill Request 06/12/2022 Reason Onset Date Comments Population Health Navigation Outreach 08/14/2022 HCC GAPS Reason Comments UTI Reason Comments Results Reason Onset Date Comments Refill Request 09/12/2022 Reason Onset Date Comments Refill Request 12/10/2022 Reason Comments Follow Up Medication follow up Derm Problem Lump on left arm Reason Comments Hospital F/U Reason Comments Follow Up Reason Comments Follow Up Reason Comments CT Authorization Reason Comments Radiology CT Specialty Diagnoses / Procedures Referred By Contac t Referred To Contact CT IMAGING Diagnoses LLQ pain Procedures CT ABD/PEL W IVCON CT ABD & PELVIS W/CONTRAST Maryan Torrez MD [address] [place] [address] [place] [address] Referral ID Status Reason Start Date Expiration Date V isits Requested Visits Authorized [id number] Closed Auto-Generate d Referral 04/12/2023 05/11/2024 1 1 Reason Comments Refill Request Reason Comments Acute Visit Care Teams (unrecognized sec tion and content) Sales Associate Cashier Relationship Specialty Start Date End Date Maryan Torrez MD [address] [place], [place] [phone] PCP - General Family Practice 01/31/18 Sales Associate Cashier Relationship Specialty Start Date End Date Maryan Torrez MD [address] [place], [place] [id number] PCP - General Family Practice 01/31/18 Sales Associate Cashier Relationship Specialty Start Date End Date Maryan Torrez MD [address] [place] [address] PCP - General Family Practice 01/31/18 Sales Associate Cashier Relationship Specialty Start Date End Date Maryan Torrez MD [address] [place] [address] PCP - General Family Practice 01/31/18 Sales Associate Cashier Relationship Specialty Start Date End Date Maryan Torrez MD [address] [place] [address] PCP - General Family Practice 01/31/18 Sales Associate Cashier Relationship Specialty Start Date End Date Maryan Torrez MD [address] [place] [address] PCP - General Family Medicine 01/31/18 Sales Associate Cashier Relationship Specialty Start Date End Date Maryan Torrez MD [address] [place] [address] PCP - General Family Medicine 01/31/18 Sales Associate Cashier Relationship Specialty Start Date End Date Maryan Torrez MD [address] [place] [address] PCP - General Family Medicine 01/31/18 Sales Associate Cashier Relationship Specialty Start Date End Date Maryan Torrez MD [address] [place] [address] PCP - General Family Medicine 01/31/18 Sales Associate Cashier Relationship Specialty Start Date End Date Maryan Torrez MD [address] [place] [address] PCP - General Family Medicine 01/31/18 Sales Associate Cashier Relationship Specialty Start Date End Date Maryan Torrez MD [address] [place] [address] PCP - General Family Medicine 01/31/18 Sales Associate Cashier Relationship Specialty Start Date End Date Maryan Torrez MD [address] [place] [address] PCP - General Family Medicine 01/31/18 Sales Associate Cashier Relationship Specialty Start Date End Date Maryan Torrez MD [address] [place] [address] PCP - General Family Medicine 01/31/18 Sales Associate Cashier Relationship Specialty Start Date End Date Maryan Torrez MD [address] [place] [address] PCP - General Family Medicine 01/31/18 Sales Associate Cashier Relationship Specialty Start Date End Date Maryan Torrez MD [address] [place] [address] PCP - General Family Medicine 01/31/18 Sales Associate Cashier Relationship Specialty Start Date End Date Maryan Torrez MD [address] [place] [address] PCP - General Family Medicine 01/31/18 Sales Associate Cashier Relationship Specialty Start Date End Date Maryan Torrez MD [address] [place] [address] PCP - General Family Medicine 01/31/18 Sales Associate Cashier Relationship Specialty Start Date End Date Maryan Torrez MD [address] [place], [place] [address] PCP - General Family Medicine 01/31/18 Sales Associate Cashier Relationship Specialty Start Date End Date Maryan Torrez MD [address] [place] [address] PCP - General Family Medicine 01/31/18 Sales Associate Cashier Relationship Specialty Start Date End Date Maryan Torrez MD [address] [place], [place] [address] PCP - General Family Medicine 01/31/18 Sales Associate Cashier Relationship Specialty Start Date End Date Maryan Torrez MD [address] [place], [place] [address] PCP - General Family Medicine 01/31/18 Sales Associate Cashier Relationship Specialty Start Date End Date Maryan Torrez MD [address] [place], [place] [address] PCP - General Family Medicine 01/31/18 Sales Associate Cashier Relationship Specialty Start Date End Date Maryan Torrez MD [address] [place], [place] [id number] PCP - General Family Medicine 01/31/18 INFORMATION SOURCE (unrecogn ized section and content) FOR RECORDS PERTAINING TO PATIENTS WHO ARE OR HAVE BEEN ENROLLED IN A CHEMICAL DEPENDENCY/SUBSTANCEABUSE PROGRAM, SOME INFORMATION MAY BE OMITTED. This clinical summary was aggregated from multiple sources. Caution should be exercised in using it in the provision of clinical care. This summary normalizes information from multiple sources, and as a consequence, information in this document may materially change the coding, format and clinical context of patient data. In addition, data may be omitted in some cases. CLINICAL DECISIONS SHOULD BE BASED ON THE PRIMARY CLINICAL RECORDS. [employer] [facility]. provides no warranty or guarantee of the accuracy or completeness of information in this document.
--- NOTE | 2023-06-29 15:44 | EDS_ITS ---
HPI History of Present Illness Chief Complaint: Shortness of Breath Detail of Chief Complaint: Cough and shortness of breath with wheezing Informant: patient and family Onset/Context/Timing Onset: Days Context: gradual Timing: Continuous and Waxes and wanes Quality: Positive for Dyspnea on exertion and Wheezing; Negative for Orthopnea or PND Current Severity: Mild Maximum Severity: Moderate Worsened by: Exertion Relieved by: Nothing Associated Symptoms cough, rhinorrhea, fever, sore throat and clear sputum; Negative for ear pain, subjective, chills or sweats Chest Pain: Positive for None Narrative Narrative: Patient is a 77-year-old woman. She has past history of recent pneumonia x 2 and recent COVID infection. She was sent in by her doctor because of low pulse ox. Patient has a portable pulse ox. She does not know the brand. This may have been an inaccurate reading since she is not hypoxic here. She denies history of VTE. Denies leg pain, swelling discoloration. Denies pleuritic pain. She has respiratory symptoms. She has a smoker and has stage II moderate COPD by Gold classification. She also has history of hypertension, type 2 diabetes nonrheumatic heart disease and mixed hyperlipidemia. Patient denies abdominal pain, nausea, vomiting or diarrhea. Patient Nu[place] black or maroon-colored stool. Patient denies dysuria, frequency, urgency or hematuria. Patient not noted a rash. Patient was on prednisone within the last 3 months. PE Risk Factors: Negative for Cancer, OCP + Smoking + > 35, Prior DVT or PE, Recent immobilization, Recent surgery or Recent travel Prior similar symptoms: Yes Recent Illness/Hospitalization: Yes PFSH PFS Medical History Acute bronchitis Anxiety Asthma-COPD overlap syndrome Chronic cough COPD (chronic obstructive pulmonary disease) Depression Diabetes Elevated blood pressure reading Essential hypertension History of left heart catheterization (LHC) (~02/02/04) Hypertension Hypoxemia Intermittent cerebral ischemia Long-term memory loss Menopause Mixed hyperlipidemia Nonrheumatic aortic (valve) insufficiency Osteopenia Right wrist fracture Smoker Stage 2 moderate COPD by GOLD classification Stroke/cerebrovascular accident TIA (transient ischemic attack) Tobacco use Type 2 diabetes mellitus Wheezing Home Medications albuterol sulfate 90 mcg/actuation aerosol inhaler 2 puff inhalation Q6H PRN SOB 02/01/22 [History Last Taken Unknown] atorvastatin 20 mg tablet 20 mg PO DAILY lowers cholesterol 02/01/22 [History Last Taken 02/24/23] clopidogrel 75 mg tablet (Plavix) 75 mg PO DAILY blood thinn 02/01/22 [History Last Taken 02/24/23] sertraline 100 mg tablet 100 mg PO DAILY depression 02/01/22 [History Last Taken 02/24/23] ferrous sulfate 325 mg (65 mg iron) tablet,delayed release 325 mg PO .q48 #45 tabs 02/26/23 [Rx Last Taken Unknown] nicotine 14 mg/24 hr daily transdermal patch 1 patch transdermal DAILY 04/23/23 [History Last Taken Unknown] ipratropium 0.5 mg-albuterol 3 mg (2.5 mg base)/3 mL nebulization soln 3 ml inhalation Q6H PRN 04/26/23 [History Last Taken Unknown] doxycycline monohydrate 100 mg capsule 100 mg PO BID #10 CAPSULES 06/29/23 [Rx Last Taken Unknown] prednisone 20 mg tablet 60 mg (3 x 20 mg) PO DAILY #12 TABLETS 06/29/23 [Rx Last Taken Unknown] Allergy/AdvReac Type Severity Reaction Status Date / Time umeclidinium AdvReac Unknown Nausea Verified 06/29/23 14:51 [From Incruse Ellipta] oxycodone HCl [From Percocet] AdvReac Rash Verified 06/29/23 14:51 Family History Father CAD (coronary artery disease) History of coronary artery bypass surgery Diabetes Mother Diabetes Surgical History History of abdominal hysterectomy History of appendectomy History of History of rotator cuff surgery Social History Smoking Status: Current some day smoker tobacco type: cigarettes Tobacco: How many years used: 47 alcohol intake: never details: Rare substance use type: does not use caffeine: Yes Type: coffee Number of servings: 6 ROS ROS ED Constitutional Constitutional ED: Denies chills, fever(s), sweats or weight loss Eyes Eyes: Denies blurry vision, change in vision or diplopia ENT ENT ED: Denies ear pain, rhinorrhea or sore throat Cardiovascular Cardiovascular: Denies chest pain, orthopnea, palpitations, paroxysmal nocturnal dyspnea or racing heartbeat Respiratory/Chest Respiratory/Chest: Reports cough, dyspnea, dyspnea on exertion and sputum; Denies orthopnea or paroxysmal nocturnal dyspnea Gastrointestinal Gastrointestinal: Denies abdominal pain, constipation, diarrhea, melena, nausea or vomiting Genitourinary Genitourinary ED: Denies dysuria, hematuria or urinary frequency Musculoskeletal Musculoskeletal: Denies arthralgias, back pain, myalgias or neck pain Integumentary Denies Abrasions or rash Neurologic Neurologic: Denies headache(s), paresthesias or weakness Endocrine Endocrinology: Denies cold intolerance or heat intolerance Hematologic/Lymphatic Hematologic/Lymphatic: Denies easy bleeding or easy bruising EXAM Physical Exam Const Vital Signs: 06/29/23 14:51 06/29/23 15:21 06/29/23 15:21 Temperature 96.5 F L Temperature Source Temporal Pulse Rate 103 H 82 Respiratory Rate 18 18 Respiratory Effort Short of Breath Respiratory Depth Normal Respiratory Pattern Normal Normal Blood Pressure 142/68 H Blood Pressure Mean 92 Pulse Ox 95 Oxygen Delivery Method Room Air Room Air Positive well nourished and well developed General Appearance ED: well developed and NAD; Negative for pallor HEENT Reports moist mucous membranes HEENT Narrative: Head is atraumatic and normocephalic. Ears normal. Nares patent. Posterior pharynx is normal. Eyes PERRL and EOMs intact bilaterally General Eye ED: Negative for pale conjunctiva or scleral icterus Neck no lymphadenopathy, supple and no meningeal signs Resp normal respiratory effort and No clear to auscultation bilaterally Resp Narrative: There is increased expiratory phase. Auscultation: wheezes expiratory wheezes and throughout and diminished lung sounds diffuse Cardio regular rate, regular rhythm, S1 normal heart sound, S2 normal heart sound and no murmurs GI non-tender, non-distended and no masses Auscultation: normoactive bowel sounds Back/Spine no CVA tenderness and normal to inspection Extremity normal to inspection Neuro oriented x3, CN's II-XII intact bilaterally and no sensory deficits noted Candis Coma Scale: document GCS findings Spontaneous Obeys Commands Oriented 15 Sensorium / Orientation: alert Motor Exam: strength 5/5 throughout Psych mental status grossly normal Thought Process: normal thought process Skin no wounds and skin turgor normal General Skin Exam: Negative for jaundice or pallor MDM MDM MDM Narrative Medical decision making narrative: In my opinion the patient's pulse ox at home was inaccurate. Suspect this is COPD exacerbation and need to evaluate for pneumonia. She was treated with prednisone Atrovent and albuterol. Blood work was obtained to assess for anemia white count and rule out endorgan dysfunction. Also to assess glucose since she is diabetic and will receive steroids. Lab Data Attestation: I reviewed the patient's lab results. Lab results narrative: CBC is normal. Basic metabolic panel reveals a glucose of 206 with normal CO2 anion gap. Labs: Laboratory Results - last 24 hr 06/29/23 15:18 WBC 7.1 RBC 4.13 L Hgb 12.3 Hct 37.9 MCV 91.8 MCH 29.8 MCHC 32.5 RDW Std Deviation 46.9 H RDW Coeff of Ana Maria 13.9 Plt Count 258 MPV 8.6 Immature Gran % (Auto) 0.100 Neut % (Auto) 56.0 Lymph % (Auto) 31.2 Graves % (Auto) 9.5 Eos % (Auto) 2.1 Baso % (Auto) 1.1 H Absolute Neuts (auto) 3.9 Absolute Lymphs (auto) 2.20 Nucleated RBC % 0 Sodium 138 Potassium 4.0 Chloride 105 Carbon Dioxide 30.0 Anion Gap 3 L BUN 20 H Creatinine 0.98 Estim Creat Clear Calc 39.94 Est GFR (MDRD) Af Amer 71 Est GFR (MDRD) Non-Af 58 L BUN/Creatinine Ratio 20.4 H Glucose 206 H Calcium 8.8 Radiography Chest X-Ray - ED: 2 View and Read by ED Physician (Chronic changes no acute findings. Cardiac silhouette size normal. Lung parenchyma reveals no acute infiltrate, effusion or pneumothorax. Mediastinum is normal. Osseous trucks is unremarkable.) Treatment and Re-Evaluation :: Patient was reassessed at 1605. She is moving more air. She still has slight wheeze. Will place on burst of prednisone. She was instructed use her inhaler more frequently. Patient was told in my opinion she does not have a PE. I suspect that her pulse ox was an accurate since she has had a 95% saturation during her entire stay in the emergency department. Furthermore her history is not consistent with PE. Discharge Plan Triage Chief Complaint: Shortness of Breath ED Provider: Jose Luis Wall Dx/Rx/DC Orders Clinical Impression: Acute exacerbation of chronic obstructive pulmonary disease, Essential hypertension, Acute bronchospasm, Hyperglycemia due to type 2 diabetes mellitus, Bronchitis Instructions: ED COPD Flare Prescriptions: New prednisone 20 mg tablet 60 mg PO DAILY Qty: 12 0RF doxycycline monohydrate 100 mg capsule 100 mg PO BID Qty: 10 0RF No Action albuterol sulfate 90 mcg/actuation HFA aerosol inhaler 2 puff inhalation Q6H PRN (Reason: SOB) atorvastatin 20 mg tablet 20 mg PO DAILY sertraline 100 mg tablet 100 mg PO DAILY clopidogrel [Plavix] 75 mg tablet 75 mg PO DAILY nicotine 14 mg/24 hr patch 24 hour 1 patch transdermal DAILY ipratropium-albuterol 0.5 mg-3 mg(2.5 mg base)/3 mL solution for nebulization 3 ml inhalation Q6H PRN ferrous sulfate 325 mg (65 mg iron) tablet,delayed release (DR/EC) 325 mg PO .q48 Qty: 45 3RF Primary Care Provider: Kendall Torrez Referrals: Kendall Torrez MD [Primary Care Provider] - 3-5 Days if not improving Activity Restrictions/Additional Instructions: Recommend using your inhaler every 2-4 hours while awake for the next 3 days then every 4-6 hours as needed. Disposition Disposition: Home, Self Care
[2023-06-29] MEDS: predniSONE 20 MG Tablet 40 MG PO (15:46)
--- NOTE | 2023-06-29 15:50 | RAD_ITS ---
STUDY: X-RAY CHEST REASON FOR EXAM: Female, 77 years old patient with cough, wheezing and dyspnea on exertion. TECHNIQUE: PA and lateral views of the chest. COMPARISON: Chest radiograph dated April 06, 2023. FINDINGS: Cardiac monitoring leads are present. There is hyperinflation of the lungs consistent with chronic obstructive lung disease (COPD). There is no demonstrated pleural abnormality. Normal size heart. Normal mediastinum and basilio. Normal visualized pulmonary arteries. There is atherosclerotic calcification of the aortic arch with tortuosity. There is demineralization of the osseous structures. The patient has had left-sided shoulder surgery. There are degenerative changes of the spine. There is no demonstrated abnormality of the visualized soft tissue structures of the upper abdomen. RAD/Chest PA and Lateral IMPRESSION: COPD without radiographic evidence of acute cardiopulmonary disease. Electronically Signed: Fani Gama MD at 16:15 EST ,
[2023-06-29 16:22] VITALS: BP 162/71; PULSE 83; RESP 20; TEMP 35.8; O2SAT 91
== END 2023-06-29 16:27 | disposition home or self-care (01) ==
PROVIDERS: Emergency Provider Emergency Medicine; PCP Family Medicine; Visit Provider Emergency Medicine
DX: J44.1 Chronic obstructive pulmonary disease with (acute) exacerbation (principal); E11.65 Type 2 diabetes mellitus with hyperglycemia; J98.01 Acute bronchospasm; J02.9 Acute pharyngitis, unspecified; E78.2 Mixed hyperlipidemia; I10 Essential (primary) hypertension; F17.210 Nicotine dependence, cigarettes, uncomplicated; Z86.16 Personal history of COVID-19; Z87.01 Personal history of pneumonia (recurrent); Z86.73 Personal history of transient ischemic attack (TIA), and cerebral infarction without residual deficits
CPT/HCPCS: 71046; 80048; 85025; 94640; 99284; A4216

== ENCOUNTER → 2023-07-16 | Outpatient (CLI) | payer MEDICARE, OTHER, SELFPAY ==
[2023-07-16 12:02] LABS: Absolute Lymphocyte Count 2.18 X10^3/uL (0.83-4.51); Absolute Neutrophil Count 4.6 X10^3/uL (2.0-7.7); Basophil# 0.07 X10^3/uL; Basophil% 0.9 % (0-1); Eosinophil# 0.11 X10^3/uL; Eosinophils% 1.4 % (0-5); Hematocrit 41.9 % (37-47); Hemoglobin 13.7 g/dL (12.0-15.0); Lymphocyte # 2.18 X10^3/ul (0.83-4.51); Lymphocyte % 28.1 % (19-41); Mean Corp Hgb Conc 32.7 g/dL (32-36); Mean Corpuscular Hgb 30.6 pg (27.0-32.0); Mean Corpuscular Volume 93.5 fL (81-99); Mean Platelet Vol. 8.8 fl (6.2-12.0); Monocyte# 0.78 X10^3/uL; NRBC Flagged by Analyzer 0 % (0-5); Neutrophil % 59.2 % (47-70); Platelet Count 272 K/mm3 (150-450); RBC Distribution Width CV 13.6 % (11.6-14.6); RBC Distribution Width SD 46.8 fl (35.1-43.9); Red Blood Count 4.48 M/mm3 (4.2-5.4); White Blood Count 7.8 K/mm3 (4.4-11.0)
[2023-07-16 12:26] LABS: BNP,B-Type NATRIURETIC PEPTIDE 70.4 pg/mL (0-100)
[2023-07-16 12:28] LABS: Anion Gap 2 (5-15); BUN 22 mg/dL (7-18); BUN/Creat Ratio 24.4 RATIO (10-20); Calcium,Total 9.3 mg/dL (8.5-10.1); Chloride 103 mmol/L (98-107); EST Glomerular Filtration Rate 64 mL/min (>60); Est Glom Filt Rate - Afr Amer 78 mL/min (>60); Glucose 95 mg/dL (74-106); Potassium 5.2 mmol/L (3.5-5.1); Sodium Level 138 mmol/L (136-145)
== END | disposition home or self-care (01) ==
LOC: LAB 11:12
PROVIDERS: PCP Family Medicine; Referring Provider Nurse Practitioner Gerontology; Visit Provider Nurse Practitioner Gerontology
DX: R06.02 Shortness of breath (principal)
CPT/HCPCS: 36415; 80048; 83880; 85025

== ENCOUNTER → 2023-09-17 | Outpatient (CLI) | payer MEDICARE, OTHER, SELFPAY ==
--- NOTE | 2023-09-17 13:30 | RAD_ITS ---
INDICATION: JORDAN EXAMINATION/TECHNIQUE: X-RAY - XR Chest 2 Views COMPARISON: FINDINGS: LINES/DEVICES: None. LUNGS: Mild right basilar infiltrate. No pneumothorax. MEDIASTINUM AND CARDIOVASCULAR STRUCTURES: Cardiac silhouette not enlarged. Central airways and mediastinal contour are unremarkable. BONES AND SOFT TISSUES: Mild degenerative vertebral changes. RAD/Chest PA and Lateral IMPRESSION: Mild right basilar infiltrate. Electronically Signed: Sergio Ayala DO at 23:09 EDT ,
[2023-09-17 14:31] LABS: Absolute Lymphocyte Count 3.26 X10^3/uL (0.83-4.51); Absolute Neutrophil Count 4.2 X10^3/uL (2.0-7.7); Basophil# 0.11 X10^3/uL; Basophil% 1.2 % (0-1); Eosinophil# 0.22 X10^3/uL; Eosinophils% 2.5 % (0-5); Hematocrit 42.5 % (37-47); Hemoglobin 14.1 g/dL (12.0-15.0); Lymphocyte # 3.26 X10^3/ul (0.83-4.51); Mean Corp Hgb Conc 33.2 g/dL (32-36); Mean Corpuscular Hgb 30.3 pg (27.0-32.0); Mean Corpuscular Volume 91.2 fL (81-99); Mean Platelet Vol. 8.9 fl (6.2-12.0); Monocyte# 0.98 X10^3/uL; Monocyte% 11.1 % (0-10); NRBC Flagged by Analyzer 0 % (0-5); Neutrophil # 4.22 X10^3/uL (2.7-7.7); Platelet Count 328 K/mm3 (150-450); RBC Distribution Width CV 12.9 % (11.6-14.6); RBC Distribution Width SD 43.2 fl (35.1-43.9); Red Blood Count 4.66 M/mm3 (4.2-5.4); White Blood Count 8.8 K/mm3 (4.4-11.0)
[2023-09-17 15:01] LABS: BNP,B-Type NATRIURETIC PEPTIDE 104.5 pg/mL (0-100)
[2023-09-17 15:03] LABS: Anion Gap 7 (5-15); BUN 19 mg/dL (7-18); BUN/Creat Ratio 20.5 RATIO (10-20); Calcium,Total 9.3 mg/dL (8.5-10.1); Chloride 97 mmol/L (98-107); Creatinine, Serum 0.92 mg/dL (0.55-1.02); EST Glomerular Filtration Rate 63 mL/min (>60); Est Glom Filt Rate - Afr Amer 76 mL/min (>60); Glucose 96 mg/dL (74-106); Potassium 4.3 mmol/L (3.5-5.1); Sodium Level 133 mmol/L (136-145)
== END | disposition home or self-care (01) ==
LOC: RAD 13:29
PROVIDERS: PCP Family Medicine; Referring Provider Physician Assistant Medical; Visit Provider Physician Assistant Medical
DX: R06.02 Shortness of breath (principal)
CPT/HCPCS: 36415; 71046; 80048; 83880; 85025

== ENCOUNTER → 2023-10-14 | Outpatient (CLI) | payer MEDICARE, OTHER, SELFPAY | END | disposition home or self-care (01) | LOC: PSN 10:48 | PROVIDERS: PCP Family Medicine; Referring Provider Internal Medicine Critical Care Medicine; Visit Provider Internal Medicine Critical Care Medicine | DX: J44.9 Chronic obstructive pulmonary disease, unspecified (principal) | CPT/HCPCS: 94060; 94726; 94729 ==

== ENCOUNTER → 2023-10-23 | Outpatient (CLI) | payer MEDICARE, OTHER, SELFPAY ==
--- NOTE | 2023-10-23 15:37 | STRESSREP_ITS ---
Stress Test Report Pharmacologic myocardial perfusion stress test. 78-year-old lady with a history of dyspnea on exertion Resting EKG demonstrates sinus rhythm with a rate of 59 bpm. Lateral T wave inversions are noted. Resting blood pressure is 148/62 mmHg. 0.4 mg of regadenoson was infused per usual protocol followed by rapid intravenous saline flush injection. Continuous EKG monitoring was performed. The maximum heart rate was 103 bpm which was 72% of max impacted heart rate the maximum workload was 1 metabolic equivalent. At rest there were no ST or T wave changes noted to suggest ischemia and at peak infusion nonspecific ST changes were noted which did not meet the criteria for ischemia. No clinical angina is noted. The final blood pressure was 136/60 mmHg. Myocardial perfusion protocol. 11.1 mCi of technetium 99m sestamibi was injected at rest. 0.4 mg of regadenoson was infused per usual protocol. At peak infusion 33.4 mCi of te chnetium 99m sestamibi was injected stress images were obtained stress and rest images were reconstructed and compared in the short axis vertical long and horizontal long axis. Gated images were also obtained. Perfusion SPECT analysis: Review of the stress images demonstrate normal uptake of tracer noted in all areas of the myocardium. The resting images similar demonstrated normal uptake of tracer noted in all areas of the myocardium. No areas of reversibility are noted to suggest ischemia and no previous infarct is noted. Gated SPECT analysis: The gated ejection fraction is 71%. Conclusion: Normal pharmacologic myocardial perfusion stress test. Preserved ejection fraction.
== END | disposition home or self-care (01) ==
LOC: CVS 06:48
PROVIDERS: PCP Family Medicine; Referring Provider Physician Assistant Medical; Visit Provider Physician Assistant Medical
DX: R06.02 Shortness of breath (principal); I10 Essential (primary) hypertension
CPT/HCPCS: 78452; 93017; A9500; A4216; J2785

== ENCOUNTER → 2023-10-29 | Outpatient (CLI) | payer MEDICARE, OTHER, SELFPAY ==
--- NOTE | 2023-10-29 14:05 | ECHOD_ITS ---
Reason For Study: Non Rheumatic Aortic Insufficiency Procedure This was a 2D Doppler, Color Flow transthoracic echocardiogram. Exam performed in department. Left Ventricle Normal LV size. Left ventricular systolic function is normal. The left ventricular ejection fraction is 60 %. Stage 1 diastolic dysfunction. No regional wall motion abnormalities noted. Right Ventricle Normal RV size. Normal systolic function. Atria Normal left atrium. Normal right atrium. Mitral Valve Normal mitral valve. Tricuspid Valve Normal tricuspid valve. Mild tricuspid valve insufficiency. Pulmonary artery systolic pressure is 20 mmHg. Aortic Valve Trisinus/trileaflet aortic valve. Mild (1+) aortic valve insufficiency. Pulmonic Valve Normal pulmonic valve. Great Vessels Normal aortic root. The pulmonary artery is normal size. Normal inferior vena cava. Pericardium/Pleural No pericardial effusion. MMode/2D Measurements & Calculations LVIDd: 4.1 cm IVSd: 1.1 cm Ao root diam: 3.3 cm LVIDs: 2.8 cm LVPWd: 1.1 cm LA dimension: 2.5 cm RVDd: 3.4 cm FS: 32.2 % LAV(MOD-bp): 33.5 ml LVAd ap4: 19.0 cm2 SV(MOD-sp4): 29.5 ml LAV(MOD-bp) Indexed: 22.0 ml/m2 LVLd ap4: 6.5 cm LAV(MOD-sp2): 37.7 ml EDV(MOD-sp4): 47.3 ml LAV(MOD-sp4): 26.3 ml EDV(sp4-el): 46.7 ml LVAs ap4: 10.5 cm2 LVLs ap4: 6.0 cm ESV(MOD-sp4): 17.9 ml ESV(sp4-el): 15.5 ml EF(MOD-sp4): 62.3 % EF(sp4-el): 66.9 % SV(sp4-el): 31.3 ml LA A4 area: 12.9 cm2 RA A4 area: 11.5 cm2 TAPSE: 2.5 cm Time Measurements MV dec time: 0.20 sec Doppler Measurements & Calculations MV E max amor: 70.7 cm/sec Lat Peak E' Amor: 9.2 cm/sec Med Peak E' Amor: 6.6 cm/sec MV A max amor: 85.4 cm/sec E/E' lat: 7.7 E/E' med: 10.7 MV E/A: 0.83 MV V2 max: 81.9 cm/sec MV P1/2t max amor: 75.8 cm/sec Ao V2 max: 141.7 cm/sec MV max P.7 mmHg MV P1/2t: 79.1 msec Ao max P.0 mmHg MV V2 mean: 46.1 cm/sec MV dec slope: 280.5 cm/sec2 Ao V2 mean: 85.4 cm/sec MV mean P.99 mmHg Ao mean P.5 mmHg MV V2 VTI: 27.6 cm MVA(P1/2t): 2.8 cm2 Ao V2 VTI: 31.3 cm AV (velocity ratio): 0.77 AI max amor: 431.4 cm/sec LV V1 max: 112.3 cm/sec PA V2 max: 90.4 cm/sec AI max P.5 mmHg LV V1 max P.0 mmHg PA max PG (full): 0.87 mmHg AI dec slope: 264.0 cm/sec2 LV V1 mean P.6 mmHg AI P1/2t: 478.6 msec LV V1 mean: 75.0 cm/sec LV V1 VTI: 24.2 cm TR max amro: 201.5 cm/sec TR max P.2 mmHg ECHO/Echo Complete Interpretation Summary Normal LV size. Left ventricular systolic function is normal. The left ventricular ejection fraction is 60 %. Stage 1 diastolic dysfunction. Mild (1+) aortic valve insufficiency. Ordering Physician: Leia Jauregui Referring Physician: Kendall Torrez Performed By: Howard Valencia RCS
== END | disposition home or self-care (01) ==
LOC: CVS 14:02
PROVIDERS: PCP Family Medicine; Referring Provider Physician Assistant Medical; Visit Provider Physician Assistant Medical
DX: I35.1 Nonrheumatic aortic (valve) insufficiency (principal)
CPT/HCPCS: 93306

== ENCOUNTER → 2024-02-18 | Outpatient (CLI) | payer MEDICARE, OTHER, SELFPAY ==
--- NOTE | 2024-02-18 14:14 | CT_ITS ---
STUDY: LOW DOSE CT LUNG CANCER SCREENING REASON FOR EXAM: Female, 78 years old. Current smoker. 1.5 packs per day x57 years RADIATION DOSAGE (If Supplied By Facility): CTDIvol = ( 1.59 ) mGy, DLP = ( 57.98 ) mGycm TECHNIQUE: No contrast was administered. Low dose technique was utilized (average mAS-38 and kVp 120). 1.25 mm axial source images with a slice interval of 1.25-mm were reconstructed in lung windows. 2.5 mm axial source images with a slice interval of 2.5-mm were reconstructed in lung windows. 5.0 mm axial source images with a slice interval of 5.0-mm were reconstructed in soft tissue windows. COMPARISON: Previous plain films FINDINGS: The lung windows show underlying emphysema with bleb formation throughout both lung ambrocio. There is nonspecific pleural thickening in both lung ambrocio with chronic interstitial changes. There is no organized infiltrate, effusion, or suspicious noncalcified mass or nodule. Limited soft tissue windows show a normal-appearing thyroid gland. No suspicious adenopathy. Peripheral calcifications in the thoracic aorta without aneurysm. There are calcified coronary vessels. Limited cuts through the upper abdomen do not show a suspicious abnormality there is a 1.5 cm gallstone. Bony structures show degenerative change CT/Low Dose CT Lung Screening IMPRESSION: Lung-RADS category 2 - Continue annual screening with LDCT in 12 months. IMPORTANT NOTES FOR USE: ACR Lung-RADS Version 1.1 Assessment Categories Release Date: 2018 Category: Coded 0-4 bases on nodule(s) with highest degree of suspicion. Negative screen is defined as categories 1 and 2; a positive screen is defined as categories 3 and 4. Category 3 and 4A nodules that are unchanged on interval CT should be coded as category 2, and individuals returned to screening in 12 months. Category 4X: Category 3 or 4 nodules with additional imaging findings that increase the suspicion of lung cancer, such as spiculation, GGN that doubles in size in 1 year, enlarged lymph notes, etc. Category Modifiers: S (significant finding unrelated to lung cancer) Electronically Signed: Roderick Cruz MD at 14:43 EDT ,
== END | disposition home or self-care (01) ==
LOC: CT 14:11
PROVIDERS: PCP Family Medicine; Referring Provider Nurse Practitioner Acute Care; Visit Provider Nurse Practitioner Acute Care
DX: Z12.2 Encounter for screening for malignant neoplasm of respiratory organs (principal); F17.210 Nicotine dependence, cigarettes, uncomplicated
CPT/HCPCS: 71271

== ENCOUNTER → 2025-02-26 | Outpatient (CLI) | payer MEDICARE, OTHER, SELFPAY ==
--- NOTE | 2025-02-26 12:51 | CT_ITS ---
PROCEDURE: LOW DOSE CT LUNG SCREENING 02/26/2025 REASON FOR EXAM: SMOKER Current smoker. 1/2 pack per day for 50 years. TECHNIQUE: Procedure Code: [id number] Modality: CT Procedure: LOW DOSE CT LUNG SCREENING Coronal and Sagittal reconstruction series were provided. One or more dose reduction techniques were used (e.g., Automated exposure control, adjustment of the mA and/or kV according to patient size, use of iterative reconstruction technique). REFERENCE LINK: [place] Lung-RADS RADIATION DOSE SUMMARY: CTDlvol: 2.01 mGy DLP: 70.72 mGycm COMPARISON: None FINDINGS: PULMONARY NODULES: (Only nodules >3mm are reported) Nodules described below are on series 1 unless otherwise specified. Pulmonary Nodules: No pulmonary nodule seen. Hardware:None Lymph Nodes:No suspicious lymph nodes are present. Heart and Vasculature:The heart is nonenlarged.Atherosclerotic calcifications of the thoracic aorta. Thoracic aorta and pulmonary arteries have normal contours; noncontrast technique limits evaluation. Coronary Artery Calcifications: Present Lungs and Airways: Mild degree of emphysematous changes. There is evidence of scarring in the lingular segment of the left upper lobe as well as at the left lung base. Pleura:No pleural effusion. Upper Abdomen:Unremarkable Bones:Degenerative changes of the thoracic spine. CT/Low Dose CT Lung Screening IMPRESSION: No suspicious pulmonary nodule seen. Coronary artery calcification (CAC) is is present Lung-RADS Category: 2 BENIGN (BASED ON IMAGING FEATURES OR INDOLENT BEHAVIOR). RECOMMEND 12-MONTH SCREENING LDCT. Other Significant Findings: Reading Location: [facility]
== END | disposition home or self-care (01) ==
LOC: CT 12:49
PROVIDERS: PCP Family Medicine; Referring Provider Nurse Practitioner Acute Care; Visit Provider Nurse Practitioner Acute Care
DX: F17.210 Nicotine dependence, cigarettes, uncomplicated (principal)
CPT/HCPCS: 71271